=== PATIENT | female | born 1970 | race Caucasian/White ===

== ENCOUNTER → 2020-08-24 10:27 | Outpatient (BNVA) | payer OTHER, SELFPAY | PROVIDERS: PCP Internal Medicine; Visit Provider Physician Assistant | DX: Z76.89 Persons encountering health services in other specified circumstances (principal) ==

== ENCOUNTER → 2020-08-27 08:24 | Outpatient (BNVA) | payer OTHER, SELFPAY | PROVIDERS: PCP Internal Medicine; Referring Provider Internal Medicine; Visit Provider Surgery | DX: Z01.818 Encounter for other preprocedural examination (principal); A04.8 Other specified bacterial intestinal infections; E66.9 Obesity, unspecified; E03.9 Hypothyroidism, unspecified; I10 Essential (primary) hypertension; Z87.891 Personal history of nicotine dependence | CPT/HCPCS: 99202; 99211 ==

== ENCOUNTER 2020-08-27 16:53 | Outpatient (REF) | payer OTHER, SELFPAY ==
[2020-08-28 12:01] LABS: H Pylori Breath Test NOT DETECTED (NOT DETECTED)
== END 2020-08-27 16:54 | disposition home or self-care (01) ==
LOC: HO.LNP 16:53
PROVIDERS: Visit Provider Surgery
DX: E03.9 Hypothyroidism, unspecified (principal); I10 Essential (primary) hypertension; E66.9 Obesity, unspecified
CPT/HCPCS: 83013

== ENCOUNTER 2020-09-23 08:24 | Outpatient (REF) | payer OTHER, SELFPAY ==
--- NOTE | 2020-09-23 08:26 | FL_ITS ---
EXAMINATION: XR GI SERIES CLINICAL INFORMATION: Hypothyroidism. Pre-op. COMPARISON: None TECHNIQUE: Routine upper GI air-contrast study was performed in upright and lying position. FINDINGS: Following oral administration of thick barium and effervescent granules in upright view, there is normal propagation of bolus from the oral cavity through the pharynx, esophagus into stomach without any obstruction or narrowing. No laryngeal penetration or aspiration seen. There is no extrinsic compression. On placing patient supine and prone lying, the course, caliber and peristalsis of the stomach, bulb and the sweep is normal. The course, caliber and peristalsis of stomach and the duodenum is normal. There is [id number] sized diverticula of the third segment of the duodenum. The mucosal pattern of the stomach and the duodenum is normal. There is minimal gastroesophageal reflux without hiatal hernia. FLUOROSCOPY TIME: 1.7 minutes DOSE AREA PRODUCT: 145 uGy-m2 (microgray-meter squared) FL/FL upper GI series IMPRESSION: [id number] diverticulum of third segment of duodenum. Minimal gastroesophageal reflux without hiatal hernia.
--- NOTE | 2020-09-23 08:28 | US_ITS ---
EXAMINATION: US ABDOMEN COMPLETE CLINICAL INFORMATION: Hypothyroidism, unspecified. Obesity. COMPARISON: CT abdomen and pelvis 09/26/2016. KUB 04/11/2012. TECHNIQUE: Real-time imaging of the abdominal viscera. Technically limited study secondary to bowel gas and body habitus. FINDINGS: PANCREAS: No focal mass or peripancreatic inflammatory changes seen. There is mild prominence of the pancreatic duct at approximately 3 to 4 mm in maximum diameter. ABDOMINAL AORTA: The proximal, mid, and distal segments are normal in caliber. INFERIOR VENA CAVA: Visualized portions are normal. LIVER: There is increased echogenicity of the liver consistent with fatty infiltration. The liver contour is normal. No focal hepatic lesion. There is no intrahepatic biliary duct dilatation seen. GALLBLADDER: Normal. The gallbladder is physiologically distended without evidence of stones, sludge, polyps, wall thickening or pericholecystic fluid. COMMON BILE DUCT: Normal in caliber measuring 0.5 cm in diameter. RIGHT KIDNEY: Normal. No hydronephrosis. No renal calculi or focal parenchymal lesions. The kidney measures 10.2 cm in maximum dimension. LEFT KIDNEY: Normal. No hydronephrosis. No renal calculi or focal parenchymal lesions. The kidney measures 10.1 cm in maximum dimension. SPLEEN: Normal. The spleen measures 10.0 cm in maximum dimension. FREE FLUID: None. US/US abdomen complete IMPRESSION: Fatty infiltration of the liver.
--- NOTE | 2020-09-23 08:28 | XR_ITS ---
EXAMINATION: XR CHEST CLINICAL INFORMATION: Hypothyroidism. COMPARISON: 09/26/2016 TECHNIQUE: 2 views of the chest were obtained. FINDINGS: Lungs are well-inflated and clear. Trachea is midline in position. No interstitial disease, consolidation or mass. No pleural effusion or pneumothorax. Cardiac silhouette and pulmonary vessels are normal in size. The mediastinum and nuvia have normal contour. The visualized bones, and upper abdomen, are unremarkable. XR/XR chest 2V IMPRESSION: Normal chest. No acute cardiopulmonary abnormality.
== END 2020-09-23 08:25 | disposition home or self-care (01) ==
LOC: HO.US 08:24
PROVIDERS: Visit Provider Surgery
DX: Z01.818 Encounter for other preprocedural examination (principal); K21.9 Gastro-esophageal reflux disease without esophagitis; E66.01 Morbid (severe) obesity due to excess calories; E03.9 Hypothyroidism, unspecified; I10 Essential (primary) hypertension
CPT/HCPCS: 71046; 74240; 76700

== ENCOUNTER → 2020-09-28 08:04 | Outpatient (BNVA) | payer OTHER, SELFPAY | PROVIDERS: PCP Internal Medicine; Referring Provider Internal Medicine; Visit Provider Dietitian, Registered | DX: Z76.89 Persons encountering health services in other specified circumstances (principal) ==

== ENCOUNTER → 2020-10-06 13:44 | Outpatient (BNVA) | payer OTHER, SELFPAY | PROVIDERS: PCP Internal Medicine; Visit Provider Surgery | DX: Z76.89 Persons encountering health services in other specified circumstances (principal) ==

== ENCOUNTER 2020-10-18 14:39 | Outpatient (REF) | payer OTHER, SELFPAY ==
--- NOTE | 2020-10-18 14:44 | US_ITS ---
EXAMINATION: US THYROID CLINICAL INFORMATION: Thyroid nodule COMPARISON: Thyroid ultrasound 11/17/2019. TECHNIQUE: Linear transducer donald-scale and color Doppler examination with attention to the region of the thyroid. FINDINGS: SIZE: Measurements of the thyroid lobes and nodules are given in sagittal, anteroposterior and transverse dimensions respectively. Right Thyroid Lobe: 4.3 x 1.4 x 1.2 cm, volume 4.0 mL. Previously 4.6 x 1.6 x 1.5 cm, volume 5.5 mL. Parenchyma: The gland echotexture is heterogeneous. Thyroid vascularity is increased. Left Thyroid Lobe: 4.2 x 1.2 x 1.2 cm, volume 3.2 mL. Previously 3.8 x 1.5 x 1.4 cm, volume 4.1 mL. Parenchyma: The gland echotexture is heterogeneous. Thyroid vascularity is increased. Isthmus: 0.4 cm in maximum AP dimension. Previously 0.3 cm. RIGHT THYROID LOBE: There is 1 nodule seen. 1. Location: Lower pole Size: 0.5 x 0.4 x 0.5 cm. Previous: Not visualized Nodule characteristics: Heterogeneous, smoothly marginated and no intranodular flow. Question 0 nodule ISTHMUS: No nodules. LEFT THYROID LOBE: Previously seen nodule in the lower pole is not visualized on the present exam. NODES: No lymphadenopathy is seen in the tissue surrounding the thyroid gland. US/US thyroid IMPRESSION: 1. Small new nodule in the right upper pole likely pseudo-nodule. 2. Previously seen pseudo nodule lower pole left thyroid lobe is not seen. 3. Recommend continued follow-up.
== END 2020-10-18 14:40 | disposition home or self-care (01) ==
LOC: HO.HMGCX 14:39
PROVIDERS: PCP Internal Medicine; Visit Provider Nurse Practitioner Gerontology
DX: E04.1 Nontoxic single thyroid nodule (principal)
CPT/HCPCS: 76536

== ENCOUNTER → 2020-10-26 08:25 | Outpatient (BNVA) | payer OTHER, SELFPAY | PROVIDERS: PCP Internal Medicine; Visit Provider Dietitian, Registered | DX: Z76.89 Persons encountering health services in other specified circumstances (principal) ==

== ENCOUNTER 2020-10-27 07:47 | Outpatient (REF) | payer OTHER, SELFPAY ==
--- NOTE | 2020-10-27 07:52 | ECG_ITS ---
Test Reason : HYPOTHYROIDISM Blood Pressure : / mmHG Vent. Rate : 051 BPM Atrial Rate : 051 BPM P-R Int : 140 ms QRS Dur : 084 ms QT Int : 428 ms P-R-T Axes : 052 073 063 degrees QTc Int : 394 ms Sinus bradycardia Otherwise normal ECG When compared with ECG of 26-SEP-2016 13:07, No significant change was found Referred By: Andrews Van Electronically Signed By:Serafin Seymour
[2020-10-27 08:50] LABS: Basophils Percent Auto 0.2 % (0-2); Eosinophils Absolute Auto 0.1 X10*3/uL (0.0-0.4); Eosinophils Percent Auto 2.2 % (0-4); Hematocrit 39.7 % (37-47); Imm Gran Abs Auto 0.02 X10*3/uL (0.00-0.03); Imm Gran Pct Auto 0.3 % (0.0-0.4); Lymphocytes Absolute Auto 2.4 X10*3/uL (1.2-4.9); Lymphocytes Percent Auto 40.3 % (20-40); MANUAL DIFF FLAG NO; Mean Corpuscular HGB Conc 32.7 g/dl (31.0-35.0); Mean Corpuscular Hemoglobin 30.5 pg (27.0-33.0); Mean Corpuscular Volume 93.2 fL (80-98); Mean Platelet Volume 10.4 fL (9.4-12.3); Monocytes Absolute Auto 0.7 X10*3/uL (0.1-1.2); Neutrophils Absolute Auto 2.8 X10*3/uL (2.0-8.3); Platelet Count 272 X10*3/uL (160-400); Red Blood Count 4.26 X10*6/uL (4.20-5.50); Red Cell Distribution Width 12.7 % (11.0-16.0)
[2020-10-27 08:59] LABS: Estimated Average Glucose 111 mg/dL; Hemoglobin A1c % 5.5 %
[2020-10-27 09:20] LABS: Alanine Aminotransferase 73 U/L (0-31); Albumin Level 3.9 g/dL (3.5-5.0); Alkaline Phosphatase 100 U/L (39-117); Anion Gap 15 (12-20); Aspartate Amino Transferase 43 U/L (5-31); Bilirubin Total 0.6 mg/dL (0.0-1.0); Blood Urea Nitrogen 21 mg/dL (9-16); C Reactive Protein 0.39 mg/dL (< or = 0.50); Calcium 9.1 mg/dL (8.4-10.2); Carbon Dioxide 28 mmol/L (22-29); Chloride 104 mmol/L (96-108); Cholesterol 196 mg/dL; Estimated Glomerular Filt Rate > 60; Glucose Random 100 mg/dL (60-115); HDL Cholesterol 61 mg/dL; LDL Cholesterol Calculated 122 mg/dl; Potassium 4.8 mmol/l (3.3-5.1); Sodium 142 mmol/L (135-145); Total Protein 6.7 g/dL (6.5-8.0); Triglycerides 69 mg/dL
[2020-10-27 09:42] LABS: Ferritin 55 ng/mL (10-250); TSH reflex Free T4 4.43 mIU/mL (0.32-4.0)
[2020-10-27 10:24] LABS: Free T4 (Free Thyroxine) 0.95 ng/dL (0.71-1.85)
[2020-10-27 12:23] LABS: Folate 18.3 ng/mL (> or = 4.0); Vitamin B12 526 pg/mL (200-900)
[2020-10-28 12:07] LABS: Insulin Level Total 2.8 uIU/mL
[2020-10-30 07:12] LABS: Zinc 85 mcg/dL (60-130)
[2020-10-31 12:16] LABS: Vitamin B1 16 nmol/L (8-30)
[2020-11-02 17:48] LABS: Vitamin A 47 mcg/dL (38-98)
== END 2020-10-27 07:48 | disposition home or self-care (01) ==
LOC: HO.LAB 07:47
PROVIDERS: PCP Internal Medicine; Visit Provider Surgery
DX: Z01.818 Encounter for other preprocedural examination (principal); E03.9 Hypothyroidism, unspecified; I10 Essential (primary) hypertension; E66.9 Obesity, unspecified
CPT/HCPCS: 36415; 80053; 80061; 82607; 82728; 82746; 83036; 83525; 84425; 84439; 84443; 84590; 84630; 85025; 86140; 93005

== ENCOUNTER 2020-11-01 08:58 | Outpatient (REF) | payer OTHER, SELFPAY ==
--- NOTE | 2020-11-01 | US_ITS ---
EXAMINATION: US COMPLETE ABDOMEN WITH LIVER ELASTOGRAPHY CLINICAL INFORMATION: Obesity COMPARISON: Previous abdominal ultrasound 09/23/[address] of the abdomen and pelvis September 2016 TECHNIQUE: Real-time imaging of the abdominal viscera. Noninvasive ultrasound liver fibrosis assessment is performed using Marta ElastPQ point quantification shear wave elastography (pSWE) with a 5 MHz transducer. Multiple elastography samples are obtained. FINDINGS: PANCREAS: The visualized pancreatic head and body are normal in appearance. The remainder of the pancreas is obscured from visualization by the overlying bowel gas. ABDOMINAL AORTA: The proximal and mid aortic segments are normal in caliber. The distal abdominal aorta is not well visualized due to bowel gas. INFERIOR VENA CAVA: Visualized portions are normal. LIVER: Liver echotexture may be slightly increased. The liver is normal in size and contour. No focal lesion or intrahepatic biliary duct dilatation. The right lobe measures 14 cm in length. The left lobe measures 11 cm in length. The main portal vein is patent with appropriate hepatopedal flow Shear wave elastography provides a median stiffness of 1 m/s (reference: normal median stiffness is 0.81 - 1.22 m/s). The IQR/median stiffness to assess sampling precision is 0.3 (reference: optimal IQR/median stiffness is under 0.3). GALLBLADDER: There is dependent echogenic material seen in the gallbladder probably representing sludge. No gallstones are seen. The gallbladder is normal in size. The gallbladder wall is normal. COMMON BILE DUCT: Normal in caliber measuring 0.6 cm in diameter. RIGHT KIDNEY: Normal. No hydronephrosis. No renal calculi or focal parenchymal lesions. The kidney measures 10.9 cm in maximum dimension. LEFT KIDNEY: Normal. No hydronephrosis. No renal calculi or focal parenchymal lesions. The kidney measures 10.8 cm in maximum dimension. SPLEEN: Normal. The spleen measures 9.8 cm in maximum dimension. FREE FLUID: None. US/US abdomen comp w elastography IMPRESSION: 1. Impression: Slightly echogenic liver probably representing fatty infiltration. Limited visualization of the tail of the pancreas and distal abdominal aorta. Small amount of sludge in the gallbladder. 2. Elastography: Metavir score F0 suggestive of no increased risk of developing liver fibrosis.
== END 2020-11-01 08:59 | disposition home or self-care (01) ==
LOC: HO.US 08:58
PROVIDERS: Visit Provider Surgery
DX: Z01.818 Encounter for other preprocedural examination (principal); E66.01 Morbid (severe) obesity due to excess calories; K21.9 Gastro-esophageal reflux disease without esophagitis
CPT/HCPCS: 76705; 76981

== ENCOUNTER → 2020-11-03 08:34 | Outpatient (BNVA) | payer OTHER, SELFPAY | PROVIDERS: PCP Internal Medicine; Visit Provider Surgery | DX: Z76.89 Persons encountering health services in other specified circumstances (principal) ==

== ENCOUNTER → 2020-11-24 08:21 | Outpatient (BNVA) | payer OTHER, SELFPAY | PROVIDERS: PCP Internal Medicine; Visit Provider Surgery ==

== ENCOUNTER → 2020-11-25 08:13 | Outpatient (BNVA) | payer OTHER, SELFPAY | PROVIDERS: PCP Internal Medicine; Visit Provider Dietitian, Registered ==

== ENCOUNTER → 2020-12-20 08:12 | Outpatient (BNVA) | payer OTHER, SELFPAY | PROVIDERS: PCP Internal Medicine; Visit Provider Surgery ==

== ENCOUNTER → 2020-12-29 09:07 | Outpatient (BNVA) | payer OTHER, SELFPAY | PROVIDERS: PCP Internal Medicine; Visit Provider Nurse Practitioner Gerontology ==

== ENCOUNTER → 2021-01-07 08:40 | Outpatient (BNVA) | payer OTHER, SELFPAY | PROVIDERS: PCP Internal Medicine; Visit Provider Surgery ==

== ENCOUNTER 2021-01-20 13:49 | Outpatient (REF) | payer OTHER, SELFPAY ==
--- NOTE | ~2021-01-20 | MM_ITS ---
EXAMINATION: MM SCREENING DIGITAL BREAST TOMOSYNTHESIS, BILATERAL CLINICAL INFORMATION: Screening. Asymptomatic. The lifetime risk of breast cancer based on the Tyrer-Cuzick Model is 7%. COMPARISON: Outside mammography 07/31/2016, 08/20/2014 ([facility]). TECHNIQUE: Digital breast tomosynthesis is performed in both the craniocaudal and mediolateral oblique views along with computer-aided detection (CAD). Synthesized 2D images are generated from the tomosynthesis. FINDINGS: There are scattered areas of fibroglandular density (ACR BI-RADS breast composition Category b). There are no significant masses, abnormal calcifications, or other abnormalities. The axilla and skin contours are unremarkable. No significant changes. MM/MM tomosynthesis screening BI IMPRESSION: No mammographic evidence of malignancy. ASSESSMENT: BI-RADS 1: Negative RECOMMENDATION: Routine annual mammography screening. This patient's information was entered into a reminder system with a target due date for their next mammogram.
== END 2021-01-20 13:50 | disposition home or self-care (01) ==
LOC: HO.MAMMO 13:49
PROVIDERS: Visit Provider Surgery
DX: Z12.31 Encounter for screening mammogram for malignant neoplasm of breast (principal)
CPT/HCPCS: 77063; 77067

== ENCOUNTER → 2021-01-26 09:19 | Outpatient (BNVA) | payer OTHER, SELFPAY | PROVIDERS: PCP Internal Medicine; Visit Provider Internal Medicine ==

== ENCOUNTER → 2021-02-02 08:35 | Outpatient (BNVA) | payer OTHER, SELFPAY | PROVIDERS: PCP Internal Medicine; Visit Provider Surgery ==

== ENCOUNTER → 2021-03-24 12:42 | Outpatient (BNVA) | payer OTHER, SELFPAY | PROVIDERS: PCP Internal Medicine; Visit Provider Surgery ==

== ENCOUNTER → 2021-03-28 08:56 | Outpatient (BNVA) | payer OTHER, SELFPAY | PROVIDERS: PCP Internal Medicine; Visit Provider Surgery ==

== ENCOUNTER 2021-03-31 06:24 | Inpatient (IN) | payer OTHER, SELFPAY ==
[2021-03-24 12:30] VITALS: BMI 32.4
[2021-03-25 09:11] LABS: MANUAL DIFF FLAG NO
[2021-03-25 09:17] LABS: Basophils Percent Auto 0.2 % (0-2); Eosinophils Absolute Auto 0.1 X10*3/uL (0.0-0.4); Eosinophils Percent Auto 2.2 % (0-4); Hematocrit 41.2 % (37-47); Hemoglobin 13.7 g/dl (12.0-16.0); Imm Gran Abs Auto 0.02 X10*3/uL (0.00-0.03); Imm Gran Pct Auto 0.3 % (0.0-0.4); Lymphocytes Absolute Auto 2.5 X10*3/uL (1.2-4.9); Lymphocytes Percent Auto 43.1 % (20-40); Mean Corpuscular HGB Conc 33.3 g/dl (31.0-35.0); Mean Corpuscular Hemoglobin 30.6 pg (27.0-33.0); Mean Platelet Volume 10.7 fL (9.4-12.3); Monocytes Absolute Auto 0.7 X10*3/uL (0.1-1.2); Monocytes Percent Auto 11.9 % (2-11); Neutrophils Absolute Auto 2.5 X10*3/uL (2.0-8.3); Neutrophils Percent Auto 42.3 % (45-73); Platelet Count 272 X10*3/uL (160-400); Red Blood Count 4.48 X10*6/uL (4.20-5.50); Red Cell Distribution Width 12.7 % (11.0-16.0); White Blood Count 5.8 X10*3/uL (4.8-10.8)
[2021-03-25 09:22] LABS: Partial Thromboplastin Time 36.4 SEC (24.1-38.0); Prothrombin Time 11.9 SEC (10.8-13.0)
[2021-03-25 09:40] LABS: Estimated Average Glucose 111 mg/dL; Hemoglobin A1c % 5.5 %
[2021-03-25 10:05] LABS: Alanine Aminotransferase 72 U/L (0-31); Albumin Level 4.1 g/dL (3.5-5.0); Alkaline Phosphatase 115 U/L (39-117); Anion Gap 15 (12-20); Aspartate Amino Transferase 47 U/L (5-31); Bilirubin Total 0.7 mg/dL (0.0-1.0); Blood Urea Nitrogen 16 mg/dL (9-16); C Reactive Protein 0.34 mg/dL (< or = 0.50); Calcium 9.4 mg/dL (8.4-10.2); Carbon Dioxide 28 mmol/L (22-29); Chloride 104 mmol/L (96-108); Cholesterol 234 mg/dL; Creatinine Clr Calc Pharmacy 77.1; Estimated Glomerular Filt Rate > 60; Glucose Random 89 mg/dL (60-115); HDL Cholesterol 70 mg/dL; LDL Cholesterol Calculated 150 mg/dl; Potassium 4.8 mmol/L (3.3-5.1); Sodium 142 mmol/L (135-145); Total Protein 7.1 g/dL (6.5-8.0); Triglycerides 70 mg/dL
[2021-03-25 10:14] LABS: TSH reflex Free T4 7.24 uIU/mL (0.32-4.0)
[2021-03-26 07:02] LABS: Insulin Level Total 2.8 uIU/mL
--- NOTE | 2021-03-30 10:21 | P.CONAN_ITS ---
Documented by User: Jessa Singh 03/30/21 10:24 HPI - Anesthesia Eval Consult details Narrative: 50yo F for Gastrectomy Sleeve, EGD, Poss Diaphragmatic Hernia, Poss Ventral Hernia, Poss Open suboxone daily (hx of IVDA) PMFSH Active Problems Active Problems: All Active Problems (Updated 03/24/21 @ 16:07 by Andrews Van MD) BMI 32.0-32.9,adult (Acute) BMI over 35 (Acute) Hypertension (Acute) BMI 36.0-36.9,adult (Acute) BMI 34.0-34.9,adult (Acute) Vitamin D deficiency (Acute) Autoimmune hypothyroidism (Acute) Obesity (Acute) Depression (Acute) Hypothyroidism (Acute) Past Medical History Medical History Autoimmune hypothyroidism COVID-19 vaccine administered Depression History of opioid abuse Hypothyroidism Palpitations Vitamin D deficiency Family History Family History Mother Brain tumor Father Vascular disease COPD (chronic obstructive pulmonary disease) Diabetes mellitus Son No problems noted. Daughter No problems noted. Daughter No problems noted. Surgical History Surgical History Hx of section Hx of hysterectomy Hx of mammogram Obesity Social History Social History Household Members: Children Are you a primary residential care facility manager to a significant other at home: Yes (children are 17 & 18 years old but are self-sufficient) Do you presently have visiting nurse or other home services: No Alcohol intake: former Year quit: 2009 Patient Tobacco Use Status: Former Tobacco user Quit Date: 2018 Tobacco use type: Cigarette Years Smoked: 30 Substance Use Type: Former Substance User and Heroin Substance Use Type Other:: taking suboxone-clean for 11 years Have you been hit, kicked, punched, or otherwise hurt by someone within the past year? If so, by whom?: No Are you DNR?: No Advance Directives: No Advance Directives Information Provided: No Advance Directives on File: No Recently lost weight without trying: No Eating poorly because of decreased appetite: No Nutrition Risks: No Nutritional Risk Patient : No : No Poor oral hygiene: No Meds Allergies Allergy/AdvReac Type Severity Reaction Status Date / Time No Known Allergies Allergy Verified 03/24/21 16:02 Home Medications Medication Instructions Recorded Confirmed Last Taken Type buprenorphine 12 mg-naloxone 3 mg 15 mg SUBLINGUAL DAILY 08/27/20 03/31/21 03/29/21 History sublingual film bupropion HCl 100 mg tablet 100 mg PO BID 08/27/20 03/31/21 03/31/21 04:30 History estradiol 0.025 mg/24 hr 1 patch TOPICAL 2XW 08/27/20 03/24/21 Unknown History semiweekly transdermal patch fluoxetine 20 mg capsule 20 mg PO DAILY 08/27/20 03/24/21 Unknown History metoprolol succinate 50 mg 50 mg PO DAILY 08/27/20 03/24/21 Unknown History tablet,extended release 24 hr omega-3 fatty acids 1,000 mg 1,000 mg PO DAILY 08/27/20 03/24/21 Unknown History capsule meloxicam 7.5 mg tablet 7.5 mg PO DAILY tab 12/29/20 03/24/21 Unknown History levothyroxine 88 mcg tablet 88 mcg PO DAILY 01/26/21 03/24/21 Unknown History [place]'s wort 1 tab PO DAILY 03/24/21 03/24/21 Unknown History cholecalciferol (vitamin D3) 25 mcg PO DAILY 03/24/21 03/24/21 Unknown History [Vitamin D3] Exam Exam Date and Time: March 30, 2021 1021 Height,Weight and Vital Signs: Height 5 ft 3 in Weight 83.007 kg Pertinent Lab Results Pertinent Lab Results: Laboratory Tests 03/25/21 03/25/21 03/25/21 07:57 08:05 08:05 WBC 5.8 RBC 4.48 Hgb 13.7 Hct 41.2 MCV 92.0 MCH 30.6 MCHC 33.3 RDW 12.7 Plt Count 272 MPV 10.7 Immature Gran % (Auto) 0.3 Neut % (Auto) 42.3 L Lymph % (Auto) 43.1 H Mower % (Auto) 11.9 H Eos % (Auto) 2.2 Baso % (Auto) 0.2 Lymph # (Auto) 2.5 Mower # (Auto) 0.7 Eos # (Auto) 0.1 Baso # (Auto) 0.0 Abs Immat Gran (auto) 0.02 Absolute Neuts (auto) 2.5 Absolute Nucleated RBC 0.000 Nucleated RBC % (auto) 0.0 PT 11.9 INR 1.0 APTT 36.4 Sodium Potassium Chloride Carbon Dioxide Anion Gap BUN Creatinine Estim Creat Clear Calc Estimated GFR Random Glucose Estimat Average Glucose Hemoglobin A1c % Total Insulin Calcium Total Bilirubin AST ALT Alkaline Phosphatase C-Reactive Protein Total Protein Albumin Triglycerides Cholesterol LDL Cholesterol, Calc HDL Cholesterol TSH Free T4 Blood Type A Positive Antibody Screen NEGATIVE 03/25/21 03/25/21 03/25/21 08:05 08:05 08:05 WBC RBC Hgb Hct MCV MCH MCHC RDW Plt Count MPV Immature Gran % (Auto) Neut % (Auto) Lymph % (Auto) Mower % (Auto) Eos % (Auto) Baso % (Auto) Lymph # (Auto) Mower # (Auto) Eos # (Auto) Baso # (Auto) Abs Immat Gran (auto) Absolute Neuts (auto) Absolute Nucleated RBC Nucleated RBC % (auto) PT INR APTT Sodium 142 Potassium 4.8 Chloride 104 Carbon Dioxide 28 Anion Gap 15 BUN 16 Creatinine 0.89 Estim Creat Clear Calc 77.1 Estimated GFR > 60 Random Glucose 89 Estimat Average Glucose 111 Hemoglobin A1c % 5.5 Total Insulin 2.8 Calcium 9.4 Total Bilirubin 0.7 AST 47 H ALT 72 H Alkaline Phosphatase 115 C-Reactive Protein 0.34 Total Protein 7.1 Albumin 4.1 Triglycerides 70 Cholesterol 234 LDL Cholesterol, Calc 150 HDL Cholesterol 70 TSH 7.24 H Free T4 0.90 Blood Type Antibody Screen Narrative Narrative: EKG 10/2020 Vent. Rate : 051 BPM Atrial Rate : 051 BPM P-R Int : 140 ms QRS Dur : 084 ms QT Int : 428 ms P-R-T Axes : 052 073 063 degrees QTc Int : 394 ms Sinus bradycardia Otherwise normal ECG When compared with ECG of 26-SEP-2016 13:07, No significant change was found Assessment and Plan Assessment Anesthesia Assessment: Chart Reviewed Documented by User: Pam Ji 03/31/21 08:26 [facility] Past Medical History Medical History Autoimmune hypothyroidism COVID-19 vaccine administered Depression History of opioid abuse Hypothyroidism Palpitations Vitamin D deficiency Family History Family History Mother Brain tumor Father Vascular disease COPD (chronic obstructive pulmonary disease) Diabetes mellitus Son No problems noted. Daughter No problems noted. Daughter No problems noted. Family history of problems with anesthesia: No Surgical History Surgical History Hx of section Hx of hysterectomy Hx of mammogram Obesity History of Problems with Anesthesia: No Social History Social History Household Members: Children Are you a primary residential care facility manager to a significant other at home: Yes (children are 17 & 18 years old but are self-sufficient) Do you presently have visiting nurse or other home services: No Alcohol intake: former Year quit: 2009 Patient Tobacco Use Status: Former Tobacco user Quit Date: 2018 Tobacco use type: Cigarette Years Smoked: 30 Substance Use Type: Former Substance User and Heroin Substance Use Type Other:: taking suboxone-clean for 11 years Have you been hit, kicked, punched, or otherwise hurt by someone within the past year? If so, by whom?: No Are you DNR?: No Advance Directives: No Advance Directives Information Provided: No Advance Directives on File: No Recently lost weight without trying: No Eating poorly because of decreased appetite: No Nutrition Risks: No Nutritional Risk Patient : No : No Poor oral hygiene: No Meds Allergies Allergy/AdvReac Type Severity Reaction Status Date / Time No Known Allergies Allergy Verified 03/24/21 16:02 Home Medications Medication Instructions Recorded Confirmed Last Taken Type buprenorphine 12 mg-naloxone 3 mg 15 mg SUBLINGUAL DAILY 08/27/20 03/31/21 03/29/21 History sublingual film bupropion HCl 100 mg tablet 100 mg PO BID 08/27/20 03/31/21 03/31/21 04:30 History estradiol 0.025 mg/24 hr 1 patch TOPICAL 2XW 08/27/20 03/24/21 Unknown History semiweekly transdermal patch fluoxetine 20 mg capsule 20 mg PO DAILY 08/27/20 03/24/21 Unknown History metoprolol succinate 50 mg 50 mg PO DAILY 08/27/20 03/24/21 Unknown History tablet,extended release 24 hr omega-3 fatty acids 1,000 mg 1,000 mg PO DAILY 08/27/20 03/24/21 Unknown History capsule meloxicam 7.5 mg tablet 7.5 mg PO DAILY tab 12/29/20 03/24/21 Unknown History levothyroxine 88 mcg tablet 88 mcg PO DAILY 01/26/21 03/24/21 Unknown History [place] wort 1 tab PO DAILY 03/24/21 03/24/21 Unknown History cholecalciferol (vitamin D3) 25 mcg PO DAILY 03/24/21 03/24/21 Unknown History [Vitamin D3] Exam Height,Weight and Vital Signs: Vital Signs Temp Pulse Resp BP Pulse Ox 03/31/21 06:59 96.0 F L 57 16 114/71 98 Pertinent Lab Results Pertinent Lab Results: Laboratory Results - last 24 hr 03/31/21 06:17 COVID-19 ([facility]) Negative COVID-19 Clin Com See Note Airway Mallampati Class: II TM Dist: >3cm Neck ROM: Full Loose/Missing/Broken Teeth: No Heart: RRR Lungs: CTAB Assessment and Plan Assessment Anesthesia Assessment: Anesthesia Plan Discussed and Chart Reviewed Final Anesthetic Review NPO: Yes ASA Class: III Final Preanesthetic Review: No Changes in Pt Med Stat, Meds/Allgs Chart Reviewed, Consent Obtained/Reviewed and Anes Risks/Benef Reviewed Patient Risk: Intermediate Procedure Risk: Intermediate Assessment/Block/Sedation in SS: Assess/Block/Sedation- Anesthetic Plan Anesthetic Plan: GA Disposition: Standard PACU and Inp. Admit - Standard Bed
--- NOTE | 2021-03-30 16:35 | MHC.SHP ---
Pre-Procedural Eval Section A The patient is an INPATIENT: Yes The History & Physical has been completed within 30 days and I have reviewed it.: No Section B Chief Complaint: Obesity, Details of Present Illness: Obesity Relevant Family History (Specify if Yes): No Relevant Social History: None Present Medications: see Short Stay Collaborative assessment Medical History: No relevant PMH History of Previous Operations: No relevant previous surgery Allergies: Allergies Allergy/AdvReac Type Severity Reaction Status Date / Time No Known Allergies Allergy Verified 03/24/21 16:02 Review of Systems Sugical H&P ROS: Negative: Constitution, Cardiovascular, Respiratory, Neurological, Psychiatric, Hem-Onc, Allergic/Immunologic, Gastrointestinal, Genitourinary, Musculoskeletal, Integumentary, Endocrine and Eyes/Ears/Nose/Throat Exam Surgical H&P Exam: Normal: HEENT, Normal: Heart, Normal: Lungs, Normal: Extremities, Normal: Abdomen, Normal: Skin and Normal: Neurological Plan Diagnosis/Plan: Unchanged I have reviewed the history and physical and performed a pertinent physical examination on my patient. No changes have occurred unless specified.
[2021-03-31] VITALS (18 sets, daily range): BP systolic 114–168; BP diastolic 64–98; PULSE 57–81; RESP 14–22; TEMP 35.6–36.7; O2SAT 93–100
[2021-03-31] MEDS: Lactated Ringers 1,000 ML 999 ML IV (06:52)
[2021-03-31 06:57] LABS: COVID-19 Test Negative (Negative); IDNOW Serial# 9DD0AD1C
[2021-03-31] MEDS: Lactated Ringers 1,000 ML 100 ML IVCONT (06:58)
--- NOTE | 2021-03-31 10:15 | PM.OP ---
Brief Operative Note Date of Service: 03/31/21 Pre-op diagnosis: Severe obesity and comorbidities Post-op diagnosis: same (& diaphragmatic hernia) Procedure: INITIAL PATIENT BMI ON PRESENTATION AT OUR OFFICE: 35.8 kg/m2 LAST BMI BEFORE SURGERY: 32.6 kg/m2 COMORBIDITIES: Hypertension, GERD, depression, liver steatosis The patient participated in an intensive weekly lifestyle intervention and exercise program during which the patient has lost between the initial office visit and the last preoperative visit 20lbs, or 10.1% of initial actual body weight. The patient met the BMI-criteria for bariatric surgery based on the BMI on initial presentation. The patient should not be penalized for achieving such weight loss because it is not sustainable long-term without surgical intervention and it was achieved in preparation for bariatric surgery under my direction and based on my published research ([email or web address] and [email or web address]) that a 10% preoperative weight loss improves long-term weight loss after surgery and reduces perioperative complications. Insurance carriers such as [facility] have endorsed my recommendations and have included in their policies criteria to include a 10% preoperative weight loss requirement. PROCEDURE: Esophago-gastroscopy, laparoscopic repair of incarcerated diaphragmatic hernia, laparoscopic lysis of adhesions, laparoscopic sleeve gastrectomy and laparoscopic gastropexy INDICATIONS: This is a 50 year-old female who was electively scheduled for laparoscopic, possibly open sleeve gastrectomy. The risks and complications of the procedure were discussed with the patient in advance, particularly the possibility of ; pulmonary embolism; staple line leak; bleeding; GERD; cardiac, pulmonary, or renal complications; as well as long-term problems such as insufficient weight loss, vitamin deficiency, strictures, or ulcers. The patient understood all the risks, and was in agreement to proceed with surgery. DESCRIPTION OF PROCEDURE: After informed consent was obtained from the patient, the patient was given preoperative antibiotics, and was transferred to the operating room. After successful induction of general anesthesia, pneumatic compressive devices were placed on both lower extremities. An upper endoscopy was performed next. The oropharynx and esophagus appeared to be within normal limits. There was a diaphragmatic hernia present of moderate size consistent with the findings of the preoperative upper GI. The stomach was entered. Then after all fluid and air were suctioned and the stomach was fully decompressed, the scope was withdrawn and secured in the mid esophagus. The patient was then prepped and draped in the usual sterile manner, and abdominal access was established at the right upper quadrant with the Bryon technique. A 12 mm blunt port was inserted, and the abdomen was insufflated with CO2 to a pressure of 15 mmHg. Under direct visualization, additional ports were placed, specifically two 5 mm Versi-step ports to the left upper quadrant, and a 5 mm Versi-Step port to the right upper quadrant. 1% lidocained plan was used to infiltrate all port sites as well as all fascia defects. Using the EndoClose suture passer device, we placed a #1 Polysorb tie across the falciform ligament in order to retract it up against the abdominal wall and prevent injury of the ligament with our instruments during the procedure. Following that, the patient was placed in a steep reverse Trendelenburg position. An additional 5 mm port was placed to the right flank for the Mediflex retractor that was used to retract the left lobe of the liver. The gastro-esophageal fat pad was opened with the ultrasonic device (Thunderbeat, Olympus) and the anterior esophagus and hiatus were exposed. The angle of His was opened with the ultrasonic device the fundus of the stomach from any diaphragmatic and splenic attachments. I then opened the gastrocolic ligament between the transverse colon and the greater curvature of the stomach with the ultrasonic device to enter the lesser sac and facilitate the ligation of the short gastric vessels. I started at a mid-point along the greater curvature and using the Thunderbeat, all short gastric vessels were divided all the way to the angle of His until the left irma was completely dissected at its entirety. I then divided the gastro-colic ligament distally to a distance of about 3-4 cm proximal to the esophagus. There was an obvious significant-sized hiatal hernia. I continued dissecting along the hiatus toward the left irma and the angle of His. I fully mobilized the fat pad that was incarcerated in the hernia. I then continued by dissecting even further into the posterior retro-esophageal space all the way to the angle of His. I continued to mobilize the esophagus into the mediastinum circumferentially. Both vagal nerves were seen and preserved. At that point, I was able to have at least 3 to 5 cm of esophagus into the abdomen. After I completely mobilized the esophagus from both the left and right irma and I had a good mobilization of the esophagus circumferentially, I closed the hernia defect with three interrupted #0 Surgidac sutures using the Endo Stitch device, two of which were placed posterior and one anterior to the esophagus. The stomach was then divided transversely with two Endo AMADOR-45 and four AMADOR-60 articulating purple loads using the Stellarcasa SA stapler and loads. Every effort was made that the gastric sleeve had a tubular shape and an even caliber throughout. Once the sleeve resection was completed, the staple line of the gastric sleeve was reinforced with Hemoclips. The resected stomach was retrieved without difficulty from the Bryon port. A gastropexy was then performed in order to prevent postoperative GERD and partial gastric volvulus. Several interrupted 2.0 Surgidac sutures were placed between the sleeve's staple line and the previously divided greater omentum and gastro-colic ligament using the Endo-Stitch device. An upper endoscopy was performed. There was no narrowing at the GE junction. The scope was easily advanced all the way to the pylorus which was clearly visualized. There was no narrowing anywhere and the sleeve's caliber was even throughout. The sleeve's staple line was inspected and there was no evidence of ischemia, bleeding or dehiscence. At that point the gastroscope was withdrawn from the patient?s mouth while we were decompressing the bowel and the stomach from any remaining air. I looked into the lesser sac to see how the sleeve was situating and it was situating well. There was no bleeding from the staple line, spleen, or short gastric vessels. The Mediflex retractor was removed, and the undersurface of the liver was inspected and there was no bleeding. The patient was placed in supine position. I closed the fascial defect of the 12 mm port site with a figure of eight #1 Polysorb suture. Then 100 cc 0.25 % Marcaine plain with 10 mg of Dexamethasone were used to infiltrate the fascial closure as well as all skin incisions. At this point, the abdomen was deflated, all ports were removed under direct vision, and no bleeding was noted from any of the port sites. The skin incisions were irrigated with saline and were closed with 4-0 absorbable monofilament sutures. Steri-Strips and OpSites were used to cover all incisions. The patient was extubated and was transferred in stable condition to the recovery room for further care. I was present and performed all chu parts of the procedure. Yoselin Lancaster was the first officer. There were no residents to assist with this case. Ty Van MD, PhD, FACS Surgeon: Andrews Van MD Anesthesia: GETA, local and other (TAP block) Was an Industrial Relations Specialist used for this Procedure?: Yes Industrial Relations Specialist: Kathryn Lancaster Estimated blood loss (mL): 10 IV fluids (mL): 2,500 Urine output (mL): 0 (No Harrison to record) Pathology: other (Stomach) Condition: stable Disposition: PACU
--- NOTE | 2021-03-31 10:20 | PM.PNGS ---
Subjective Subjective Date of Service: 03/31/21 Interval history: Patient has mild incisional pain but was able to ambulate and use the incentive spirometer. Physical Exam Vital Signs: Vital Signs: Last Vital Signs Temp 96.0 F L 03/31/21 06:59 Pulse 57 03/31/21 06:59 Resp 16 03/31/21 06:59 BP 114/71 03/31/21 06:59 Pulse Ox 98 03/31/21 06:59 Body Mass Index 32.4 GI: Inspection: Yes normal to inspection and Yes incision (dry, clean and intact) Extrem: Right lower extremity: normal to inspection (no calf tenderness) Left lower extremity: normal to inspection (no calf tenderness) Progress Note: A&P Assessment and plan (1) Obesity: Status: Acute (2) BMI 32.0-32.9,adult: Status: Acute (3) Hypertension: Status: Acute (4) Autoimmune hypothyroidism: Status: Acute (5) Depression: Status: Acute (6) S/P laparoscopic sleeve gastrectomy: Status: Acute Assessment and Plan: s/p lap sleeve gastrectomy, gastropexy and diaphragmatic hernia repair Doing well Check am labs (7) Status post repair of paraesophageal diaphragmatic hernia: Status: Acute (8) Diaphragmatic hernia: Status: Acute (9) Steatosis, liver: Status: Acute Fall Risk Details Current Medications: Current Medications Generic Name Dose Route Start Last Admin Trade Name Freq PRN Reason Stop Dose Admin Fentanyl 25 mcg 03/31/21 08:26 Fentanyl Citrate/Pf 100 Mcg/2 Ml Vial IVPUSH Q5M PRN Pain, Moderate (Pain Scale 4-6 Hydromorphone HCl 0.25 mg 03/31/21 08:26 Hydromorphone Hcl 0.5 Mg/0.5 Ml Syringe IVPUSH Q5M PRN Pain, Severe (Pain Scale 7-10) Lactated Ringer's 1,000 mls @ 100 mls/hr 03/31/21 06:15 03/31/21 06:58 Lr IVCONT 100 mls/hr .Q10H HEBERT Administration Promethazine HCl 6.25 mg/ 50.25 mls @ 201 mls/hr 03/31/21 08:26 Sodium Chloride IV ONCE PRN Nausea and Vomiting Ondansetron HCl 4 mg 03/31/21 08:26 Ondansetron Hcl 4 Mg/2 Ml Vial IVPUSH ONCE PRN Nausea and Vomiting Time Spent With Patient Time: Total time spent is greater than 50% in coordination of care (as documented) at patient's floor/unit and/or counseling patient:
[2021-03-31] MEDS: ondansetron HCL 4 MG/2 ML VIAL IVPUSH (10:22)
--- NOTE | 2021-03-31 10:27 | PM.DS ---
DS: Providers Provider Date of Service: 04/01/21 Date of admission: 03/31/21 06:24 Primary care physician: Conner Art MD DS: Diagnosis Discharge Diagnosis (1) Obesity: (2) BMI 32.0-32.9,adult: (3) Hypertension: Status: Acute (4) Autoimmune hypothyroidism: Status: Acute (5) Depression: Status: Acute Problem details: states has been on Rx for many years (6) S/P laparoscopic sleeve gastrectomy: Status: Acute (7) Status post repair of paraesophageal diaphragmatic hernia: Status: Acute (8) Diaphragmatic hernia: Status: Acute (9) Steatosis, liver: Status: Acute DS: Medications Discharge Medications Home Medications: Home Medications Medication Instructions Recorded Confirmed buprenorphine 12 mg-naloxone 3 mg 15 mg SUBLINGUAL DAILY 08/27/20 03/31/21 sublingual film bupropion HCl 100 mg tablet 100 mg PO BID 08/27/20 03/31/21 estradiol 0.025 mg/24 hr 1 patch TOPICAL 2XW 08/27/20 03/24/21 semiweekly transdermal patch fluoxetine 20 mg capsule 20 mg PO DAILY 08/27/20 03/24/21 metoprolol succinate 50 mg 50 mg PO DAILY 08/27/20 03/24/21 tablet,extended release 24 hr omega-3 fatty acids 1,000 mg 1,000 mg PO DAILY 08/27/20 03/24/21 capsule meloxicam 7.5 mg tablet 7.5 mg PO DAILY tab 12/29/20 03/24/21 levothyroxine 88 mcg tablet 88 mcg PO DAILY 01/26/21 03/24/21 [place]'s wort 1 tab PO DAILY 03/24/21 03/24/21 cholecalciferol (vitamin D3) 25 mcg PO DAILY 03/24/21 03/24/21 [Vitamin D3] Previous Rx's Medication Instructions Recorded ondansetron HCl 4 mg tablet 4 mg PO Q12H #20 tab 03/24/21 pantoprazole 40 mg tablet,delayed 40 mg PO DAILY #30 tab 03/24/21 release polyethylene glycol 3350 17 gram 17 g PO DAILY #14 ea 03/24/21 oral powder packet sucralfate 100 mg/mL oral 10 ml PO BID #400 ml 03/24/21 suspension DS: Summary Time Spent with Patient Time attestation: ADMITTING DIAGNOSIS: morbid obesity, automimmune hypothyroidism, diaphragmatic hernia, hypertension DISCHARGE DIAGNOSIS: same, s/p laparoscopic sleeve gastrectomy and repair diaphragmatic hernia PAST SURGICAL HISTORY: section, hysterectomy PROCEDURE: upper endoscopy, laparoscopic sleeve gastrectomy and repair of diaphragmatic hernia hernia DISCHARGE SUMMARY: History of Present Illness: The patient is a 50 year-old woman with a BMI of 36 kg/m2 and associated co-morbidities as described above. The patient had extensive work-up,lost 19.8 lbs preoperatively and was electively scheduled for laparoscopic, possible open sleeve gastrectomy and gastropexy. Risks and complications of the surgery were discussed with the patient in advance, particularly the possibility of , pulmonary embolism, anastomotic leak, bleeding, bowel injury, GERD, cardiac, renal or pulmonary complications. The patient understood all the risks and was in agreement with the surgical plan. Hospital Course: The patient underwent an uneventful laparoscopic sleeve gastrectomy with gastropexy and repair of diaphragmatic hernia on the day of admission. Postoperatively, the patient was transferred to the surgical floor. The patient was on IV Acetaminophen and IV dilaudid for pain control. Patient was started on bariatric phase 1 diet POD #0. On postoperative day one, the patient was feeling well without nausea, vomiting, fevers, or tachycardia. The patient had some mild incisional pain. The abdomen was soft. On the morning of postoperative day one, the patient was continued on 1 ounce of water or ice every half hour. During the first day, the patient did fairly well, having some incisional pain, but able to ambulate adequately and to tolerate liquids well. Since the patient is doing well, we decided that the patient was ready to be discharged. The patient was given instructions to follow-up with me next week and to call my office for any fever over 101, persistent abdominal pain, nausea, vomiting, GERD, symptoms of DVT such as calf tenderness, or leg swelling, or pulmonary embolism such as chest pain or shortness of breath. The patient was also instructed to drink 40-60 ounces of liquids per day using the 1-ounce cups. The patient was given prescription for Tylenol for pain, Zofran prn for nausea, and pantoprazole and carafate. The patient was encouraged to ambulate and use the incentive spirometer. The patient was allowed to shower, but no baths, and encouraged to stay active at home. All of these instructions were given to the patient personally. All questions were answered and the patient understood all instructions, the instructions were also given to the patient in print. Total time spent providing and/or coordinating discharge services: 15 Discharge coordination time: Less than 30 minutes Quality: Stroke Does the patient have a stroke diagnosis?: No Physical Exam Vital Signs: Vital Signs: Last Vital Signs Temp 96.0 F L 03/31/21 06:59 Pulse 57 03/31/21 06:59 Resp 16 03/31/21 06:59 BP 114/71 03/31/21 06:59 Pulse Ox 98 03/31/21 06:59 Body Mass Index 32.4 DS: Data Data Completed and Pending Pending studies at discharge: Pending at discharge 03/31/21 09:28 Surgical [PTH] Routine Labs on day of discharge: Laboratory Results - last 24 hr 03/31/21 06:17 COVID-19 (SHARI) Negative COVID-19 Clin Com See Note Discharge Plan Discharge Anticipated Discharge Date/Time: 04/01/21 10:23 Patient Disposition: Home, Self-Care Discharge Diagnosis: s/p sleeve gastrectomy Referrals: Conner Art MD [Primary Care Provider] - 1 Week Discharge Medications: Continued sucralfate [Carafate] 1 gram tablet 1 g PO BID Qty: 60 RF: 2 bupropion HCl 100 mg tablet 100 mg PO BID RF: 0 fluoxetine 20 mg capsule 20 mg PO DAILY RF: 0 buprenorphine-naloxone 12-3 mg film 15 mg sublingual DAILY RF: 0 pantoprazole 40 mg tablet,delayed release (DR/EC) 40 mg PO DAILY Qty: 30 RF: 2 ondansetron HCl [Zofran] 4 mg tablet 4 mg PO Q12H Qty: 20 RF: 0 levothyroxine 88 mcg tablet 88 mcg PO DAILY RF: 0 Held estradiol 0.025 mg/24 hr patch semiweekly 1 patch topical 2XW RF: 0 Hold Instructions: Discuss when to restart with Dr Van omega-3 fatty acids [Fish Oil Concentrate] 1,000 mg capsule 1,000 mg PO DAILY RF: 0 Hold Instructions: Resume on 04/21/21. Discontinued cholecalciferol (vitamin D3) [Vitamin D3] 25 mcg (1,000 unit) Capsule 25 mcg PO DAILY RF: 0 [place]'s wort 1 tab PO DAILY RF: 0 metoprolol succinate 50 mg tablet extended release 24 hr 50 mg PO DAILY RF: 0 meloxicam 7.5 mg tablet 7.5 mg PO DAILY RF: 0 sucralfate 100 mg/mL suspension 10 ml PO BID Qty: 400 RF: 2 polyethylene glycol 3350 [Miralax] 17 gram powder in packet 17 g PO DAILY Qty: 14 RF: 0 Discharge Orders: Discharge Order (Routine); Ordered 04/01/21 Ordered By: Andrews Van Diet: other Activity on Discharge: No heavy lifting Stand Alone Forms: Patient Portal Discharge page Activity Restrictions/Additional Instructions: No tub baths, sex or returning to work until discussed at first post op appointment. No exercise, alcohol, tobacco or illegal drug use. Continue to use incentive spirometer hourly while awake. Walk in home for 5- 10 minutes every 2 hours during the first week. Continue phase 1 diet today and start phase 2 diet tomorrow morning. Follow all instructions in the bariatric handbook and call with any questions. The patient's medical history has been reviewed and they are considered low risk for post op DVT and therefore DVT prophylaxis is not considered necessary. Travel after surgery was reviewed. The patient has not disclosed any travel plans during the first 30 days after surgery and they have been advised that within the first 30 days after surgery any bus, plane, train or car travel over 2 hours in duration is contraindicated due to the possibility of developing blood clots from immobility. Any travel, needs to include periods of ambulation of 10 minutes in duration every 2 hours. The patient was instructed to discuss any plans for travel during this period with their bariatric surgeon. Care Plan Goals: weight loss Health Concerns: obesity Plan of Treatment: see discharge instructions Assessment: stable POD #1 s/p sleeve gastrectomy Discharge Date/Time: 04/01/21 12:25
[2021-03-31] MEDS: Famotidine/PF 20 MG/2 ML VIAL IVPUSH ×2 (10:45→20:49)
[2021-03-31] MEDS: diphenhydrAMINE HCL 50 MG/ML VIAL 12.5 MG IVPUSH (10:48)
[2021-03-31 11:16] LABS: Hematocrit 40.2 % (37-47); Hemoglobin 13.5 g/dl (12.0-16.0)
[2021-03-31 11:44] LABS: Anion Gap 12 (12-20); Blood Urea Nitrogen 9 mg/dL (9-16); Calcium 9.1 mg/dL (8.4-10.2); Carbon Dioxide 27 mmol/L (22-29); Chloride 102 mmol/L (96-108); Creatinine Clr Calc Pharmacy 85.9; Estimated Glomerular Filt Rate > 60; Glucose Random 136 mg/dL (60-115); Potassium 3.6 mmol/L (3.3-5.1); Sodium 137 mmol/L (135-145)
[2021-03-31] MEDS: Lactated Ringers 1,000 ML 125 ML IVCONT ×2 (13:28→20:49)
[2021-03-31] MEDS: ceFAZolin Sodium/Dextrose,Iso 2 GM/50 ML PIGGYBACK IV (13:28)
[2021-03-31] MEDS: Buprenorphine/Naloxone 12/3 mg FILM 1 FILM SUBLINGUAL (16:20)
[2021-03-31] MEDS: 0.9 % Sodium Chloride Flush 3 ML SYRINGE IVFLUSH (20:49)
[2021-03-31] MEDS: buPROPion HCL 100 MG TABLET PO (20:49)
[2021-04-01] VITALS: BP 129/70; PULSE 63; RESP 16; TEMP 36.6; O2SAT 96
[2021-04-01 03:25] VITALS: BP 116/63; PULSE 60; RESP 16; TEMP 36.1; O2SAT 96
[2021-04-01] MEDS: Lactated Ringers 1,000 ML 125 ML IVCONT (04:36)
[2021-04-01] MEDS: Levothyroxine Sodium 88 MCG TABLET PO (06:33)
[2021-04-01 06:58] VITALS: BP 114/60; PULSE 60; RESP 18; TEMP 36.1; O2SAT 98
[2021-04-01 07:29] LABS: Anion Gap 11 (12-20); Blood Urea Nitrogen 8 mg/dL (9-16); Calcium 8.8 mg/dL (8.4-10.2); Carbon Dioxide 30 mmol/L (22-29); Chloride 104 mmol/L (96-108); Creatinine Clr Calc Pharmacy 91.5; Estimated Glomerular Filt Rate > 60; Glucose Random 86 mg/dL (60-115); Potassium 4.8 mmol/L (3.3-5.1); Sodium 140 mmol/L (135-145)
--- NOTE | 2021-04-01 07:54 | MHC.CM.PN ---
PATIENT IS FULLY INDEPENDENT. NO DME OR [facility] SERVICES. SHE HAS TRANSPORT HOME TODAY AND HOPES TO BE DISCHARGED BY NOON. PATIENT WILL DISCUSS RETURN TO WORK PLAN WITH SURGICAL TEAM.
[2021-04-01 08:32] LABS: Basophils Percent Auto 0.1 % (0-2); Eosinophils Percent Auto 0.1 % (0-4); Hemoglobin 12.4 g/dl (12.0-16.0); Imm Gran Abs Auto 0.04 X10*3/uL (0.00-0.03); Imm Gran Pct Auto 0.4 % (0.0-0.4); Lymphocytes Absolute Auto 1.7 X10*3/uL (1.2-4.9); Lymphocytes Percent Auto 16.5 % (20-40); MANUAL DIFF FLAG NO; Mean Corpuscular HGB Conc 33.5 g/dl (31.0-35.0); Mean Corpuscular Hemoglobin 30.7 pg (27.0-33.0); Mean Corpuscular Volume 91.6 fL (80-98); Mean Platelet Volume 11.2 fL (9.4-12.3); Monocytes Absolute Auto 0.9 X10*3/uL (0.1-1.2); Monocytes Percent Auto 8.9 % (2-11); Neutrophils Absolute Auto 7.7 X10*3/uL (2.0-8.3); Platelet Count 248 X10*3/uL (160-400); Red Blood Count 4.04 X10*6/uL (4.20-5.50); Red Cell Distribution Width 12.6 % (11.0-16.0); White Blood Count 10.4 X10*3/uL (4.8-10.8)
--- NOTE | 2021-04-01 09:57 | HO.POSTANES ---
Post Anesthesia Evaluation Post Anesthesia Evaluation Vital Signs: Vital Signs Temp Pulse Resp BP Pulse Ox 04/01/21 06:58 97 F 60 18 114/60 98 04/01/21 03:25 96.9 F 60 16 116/63 96 04/01/21 00:00 97.9 F 63 16 129/70 96 Anesthesia: General Endotracheal-GETA Mental Status: Awake Pain Control: Satisfactory Nausea/Vomiting: None Hydration: Adequate Anesthesia-Related Issues: No Anes. Related Issues
[2021-04-01] MEDS: FLUoxetine HCl 20 MG CAPSULE PO (10:05)
[2021-04-01] MEDS: buPROPion HCL 100 MG TABLET PO (10:06)
[2021-04-01] MEDS: Metoprolol Succinate ER 50 MG TAB.ER.24H PO (10:06)
[2021-04-01] MEDS: Famotidine/PF 20 MG/2 ML VIAL IVPUSH (10:06)
[2021-04-01] MEDS: Buprenorphine/Naloxone 12/3 mg FILM 1 FILM SUBLINGUAL (10:21)
[2021-04-01 11:03] VITALS: BP 125/59; PULSE 59; RESP 18; TEMP 36.4; O2SAT 97
== END 2021-04-01 12:25 | disposition home or self-care (01) | DRG 403 ==
LOC: HO.SSSA 10:27 → HO.S3 11:34
PROVIDERS: Physician Assistant; Admitting Provider Surgery; PCP Internal Medicine; Visit Provider Surgery
PROC: 0DB64Z3 Excision of Stomach, Percutaneous Endoscopic Approach, Vertical (ICD-10-PCS; CPT 43845; principal; 2021-03-31 07:30)
DX: E66.01 Morbid (severe) obesity due to excess calories (principal); K76.0 Fatty (change of) liver, not elsewhere classified; F11.20 Opioid dependence, uncomplicated; K44.0 Diaphragmatic hernia with obstruction, without gangrene; F32.9 Major depressive disorder, single episode, unspecified; I10 Essential (primary) hypertension; Z68.32 Body mass index [BMI] 32.0-32.9, adult; E06.3 Autoimmune thyroiditis; K21.9 Gastro-esophageal reflux disease without esophagitis; Z20.822 Contact with and (suspected) exposure to COVID-19; Z87.891 Personal history of nicotine dependence; Z79.51 Long term (current) use of inhaled steroids; Z79.890 Hormone replacement therapy; Z79.899 Other long term (current) drug therapy
CPT/HCPCS: 36415; 80048; 80053; 80061; 83036; 83525; 84439; 84443; 85014; 85018; 85025; 85610; 85730; 86140; 86850; 86900; 86901; 87635; 88307; 88342; A4649; J0131; J0690; J1100; J1170; J1200; J2250; J2405; J2550; J3010

== ENCOUNTER → 2021-04-06 14:54 | Outpatient (BNVA) | payer OTHER, SELFPAY | PROVIDERS: PCP Internal Medicine; Visit Provider Surgery | DX: E66.9 Obesity, unspecified (principal); Z68.31 Body mass index [BMI] 31.0-31.9, adult | CPT/HCPCS: 99212 ==

== ENCOUNTER → 2021-04-28 09:52 | Outpatient (BNVA) | payer OTHER, SELFPAY | PROVIDERS: PCP Internal Medicine; Visit Provider Internal Medicine ==

== ENCOUNTER → 2021-05-06 07:27 | Outpatient (BNVA) | payer OTHER, SELFPAY | PROVIDERS: PCP Internal Medicine; Visit Provider Surgery ==

== ENCOUNTER → 2021-05-09 07:47 | Outpatient (BNVA) | payer OTHER, SELFPAY | PROVIDERS: PCP Internal Medicine; Visit Provider Surgery | DX: E66.9 Obesity, unspecified (principal); Z68.30 Body mass index [BMI] 30.0-30.9, adult; Z79.899 Other long term (current) drug therapy | CPT/HCPCS: 99212 ==

== ENCOUNTER 2021-06-02 12:30 | Outpatient (REF) | payer OTHER, SELFPAY ==
[2021-06-02 14:04] LABS: Thyroid Stimulating Hormone 2.32 uIU/mL (0.32-4.0); Vitamin D 25-OH Total 31.1 ng/mL (>30)
== END 2021-06-02 12:31 | disposition home or self-care (01) ==
LOC: HO.10HDL 12:30
PROVIDERS: Visit Provider Internal Medicine
DX: E06.3 Autoimmune thyroiditis (principal); E55.9 Vitamin D deficiency, unspecified
CPT/HCPCS: 36415; 82306; 84439; 84443

== ENCOUNTER 2022-01-18 12:14 | Outpatient (REF) | payer OTHER, SELFPAY ==
[2022-01-18 14:24] LABS: Free T4 (Free Thyroxine) 0.89 ng/dL (0.71-1.85); Thyroid Stimulating Hormone 1.49 uIU/mL (0.32-4.0); Vitamin D 25-OH Total 22.6 ng/mL (>30)
[2022-01-19 22:25] LABS: Thyroglobulin Antibodies 44 IU/mL (< or = 1); Thyroid Peroxidase Antibodies 15 IU/mL (<9)
== END 2022-01-18 12:15 | disposition home or self-care (01) ==
LOC: HO.HMGCLDS 12:14
PROVIDERS: Internal Medicine; Visit Provider Nurse Practitioner Gerontology
DX: E06.3 Autoimmune thyroiditis (principal); E55.9 Vitamin D deficiency, unspecified
CPT/HCPCS: 36415; 82306; 84439; 84443; 86376; 86800

== ENCOUNTER 2022-01-20 11:11 | Outpatient (REF) | payer OTHER, SELFPAY ==
[2022-01-20 11:26] LABS: MANUAL DIFF FLAG NO
[2022-01-20 11:47] LABS: Basophils Percent Auto 0.3 % (0-2); Eosinophils Absolute Auto 0.1 X10*3/uL (0.0-0.4); Eosinophils Percent Auto 1.2 % (0-4); Hematocrit 43.5 % (37.0-47.0); Imm Gran Abs Auto 0.01 X10*3/uL (0.00-0.03); Imm Gran Pct Auto 0.2 % (0.0-0.4); Lymphocytes Absolute Auto 2.7 X10*3/uL (1.2-4.9); Lymphocytes Percent Auto 40.6 % (20-40); Mean Corpuscular HGB Conc 32.2 g/dl (31.0-35.0); Mean Corpuscular Hemoglobin 30.7 pg (27.0-33.0); Mean Corpuscular Volume 95.4 fL (80.0-98.0); Mean Platelet Volume 9.7 fL (9.4-12.3); Monocytes Absolute Auto 0.8 X10*3/uL (0.1-1.2); Monocytes Percent Auto 12.4 % (2-11); Neutrophils Percent Auto 45.3 % (45-73); Platelet Count 293 X10*3/uL (160-400); Red Blood Count 4.56 X10*6/uL (4.20-5.50); Red Cell Distribution Width 12.8 % (11.0-16.0); White Blood Count 6.5 X10*3/uL (4.8-10.8)
[2022-01-20 12:01] LABS: Estimated Average Glucose 103 mg/dL; Hemoglobin A1c % 5.2 %
[2022-01-20 12:27] LABS: Alanine Aminotransferase 23 U/L (0-31); Albumin Level 4.1 g/dL (3.5-5.0); Alkaline Phosphatase 74 U/L (39-117); Anion Gap 14 (12-20); Aspartate Amino Transferase 20 U/L (5-31); Bilirubin Total 0.4 mg/dL (0.0-1.0); Blood Urea Nitrogen 19 mg/dL (9-16); Calcium 9.6 mg/dL (8.4-10.2); Carbon Dioxide 30 mmol/L (22-29); Chloride 102 mmol/L (96-108); Cholesterol 235 mg/dL; Estimated Glomerular Filt Rate > 60; Glucose Random 74 mg/dL (60-115); HDL Cholesterol 79 mg/dL; LDL Cholesterol Calculated 137 mg/dl; Potassium 4.5 mmol/L (3.3-5.1); Sodium 141 mmol/L (135-145); Total Protein 7.1 g/dL (6.5-8.0); Triglycerides 98 mg/dL
[2022-01-20 12:48] LABS: Vitamin B12 247 pg/mL (200-900)
[2022-01-21 09:41] LABS: LDL Cholesterol Direct 124 mg/dL (<100)
== END 2022-01-20 11:12 | disposition home or self-care (01) ==
LOC: HO.LAB 11:11
PROVIDERS: PCP Internal Medicine; Visit Provider Internal Medicine
DX: E03.9 Hypothyroidism, unspecified (principal); E66.3 Overweight; Z71.3 Dietary counseling and surveillance; Z79.899 Other long term (current) drug therapy; Z87.891 Personal history of nicotine dependence; Z98.84 Bariatric surgery status; Z98.890 Other specified postprocedural states; Z87.19 Personal history of other diseases of the digestive system
CPT/HCPCS: 36415; 80053; 80061; 82607; 83036; 83721; 85025; 99212

== ENCOUNTER 2022-02-23 14:53 | Outpatient (REF) | payer OTHER, SELFPAY ==
--- NOTE | ~2022-02-23 | MM_ITS ---
EXAMINATION: MM SCREENING DIGITAL BREAST TOMOSYNTHESIS, BILATERAL CLINICAL INFORMATION: Screening. Asymptomatic. The lifetime risk of breast cancer based on the Tyrer-Cuzick Model is 8.4%. COMPARISON: Mammography: January 20, 2021 and studies dating back to May 31, 2012 TECHNIQUE: Digital breast tomosynthesis is performed in both the craniocaudal and mediolateral oblique views along with computer-aided detection (CAD). Synthesized 2D images are generated from the tomosynthesis. FINDINGS: There are scattered areas of fibroglandular density (ACR BI-RADS breast composition Category b). There are no significant masses, abnormal calcifications, or other abnormalities. MM/MM tomosynthesis screening BI IMPRESSION: There are no significant changes from prior study. ASSESSMENT: BI-RADS 1: Negative RECOMMENDATION: Routine annual mammography screening. This patient's information was entered into a reminder system with a target due date for their next mammogram.
== END 2022-02-23 14:54 | disposition home or self-care (01) ==
LOC: HO.MAMMO 14:53
PROVIDERS: PCP Internal Medicine; Visit Provider Internal Medicine
DX: Z12.31 Encounter for screening mammogram for malignant neoplasm of breast (principal)
CPT/HCPCS: 77063; 77067

== ENCOUNTER → 2022-03-03 10:30 | Outpatient (BNVA) | payer OTHER, SELFPAY | PROVIDERS: PCP Internal Medicine; Referring Provider Internal Medicine; Visit Provider Physician Assistant | DX: E66.3 Overweight (principal); Z68.27 Body mass index [BMI] 27.0-27.9, adult; Z98.84 Bariatric surgery status | CPT/HCPCS: 99212 ==

== ENCOUNTER → 2022-03-21 09:37 | Outpatient (BNVA) | payer OTHER, SELFPAY | PROVIDERS: PCP Internal Medicine; Referring Provider Internal Medicine; Visit Provider Nurse Practitioner Family | DX: Z12.11 Encounter for screening for malignant neoplasm of colon (principal) | CPT/HCPCS: 99202 ==

== ENCOUNTER 2022-07-19 10:33 | Day surgery (SDC) | payer OTHER, SELFPAY ==
[2022-07-14 11:00] VITALS: BMI 27.4
--- NOTE | 2022-07-18 11:01 | P.CONAN_ITS ---
Documented by User: Jessa Singh NP 07/18/22 11:04 HPI - Anesthesia Eval Consult details Narrative: 52yo F for Colonoscopy Suboxone daily PMFSH Active Problems Active Problems: All Active Problems (Updated 01/20/22 @ 12:07 by Kathryn Lancaster PA-C) BMI over 35 (Acute) Hypertension (Acute) S/P laparoscopic sleeve gastrectomy (Acute) Status post repair of paraesophageal diaphragmatic hernia (Acute) Diaphragmatic hernia (Acute) Obesity (Acute) BMI 31.0-31.9,adult (Acute) BMI 30.0-30.9,adult (Acute) Overweight (BMI 25.0-29.9) (Acute) Vitamin D deficiency (Acute) Steatosis, liver (Acute) Autoimmune hypothyroidism (Acute) Depression (Acute) Past Medical History Medical History Autoimmune hypothyroidism BMI 32.0-32.9,adult BMI 34.0-34.9,adult BMI 36.0-36.9,adult COVID-19 vaccine administered Depression History of opioid abuse Hypothyroidism Palpitations Steatosis, liver Vitamin D deficiency Family History Family History Mother Brain tumor Father Vascular disease COPD (chronic obstructive pulmonary disease) Diabetes mellitus Son No problems noted. Daughter No problems noted. Daughter No problems noted. Family history of problems with anesthesia: No Surgical History Surgical History (Updated 07/14/22 @ 10:51 by Karla Barbour RN) History of sleeve gastrectomy Hx of section Hx of hysterectomy Hx of mammogram Obesity History of Problems with Anesthesia: No Social History Social History Household Members: Children Are you a primary anesthesiologist and critical care to a significant other at home: Yes (children are 17 & 18 years old but are self-sufficient) Do you presently have visiting nurse or other home services: No Alcohol intake: former Year quit: 2009 Patient Tobacco Use Status: Former Tobacco user Quit Date: 2019 Tobacco use type: Cigarette Years Smoked: 30 Use of substances other than those prescribed or required for medical reasons: No Substance Use Type: Former Substance User and Heroin Are you DNR?: No Advance Directives: No Advance Directives Information Provided: Yes service: No Current occupational status: employed Meds Allergies Allergy/AdvReac Type Severity Reaction Status Date / Time No Known Allergies Allergy Verified 07/14/22 10:55 Home Medications Medication Instructions Recorded Confirmed Last Taken Type buprenorphine 12 mg-naloxone 3 mg 15 mg sublingual DAILY 08/27/20 07/14/22 03/29/21 History sublingual film bupropion HCl 100 mg tablet 100 mg PO BID 08/27/20 07/14/22 03/31/21 04:30 History hydrochlorothiazide 25 mg tablet 25 mg PO DAILY 01/20/22 07/14/22 Unknown History cyanocobalamin (vitamin B-12) 1,000 mcg PO DAILY 03/03/22 07/14/22 Unknown History 1,000 mcg tablet fluoxetine 20 mg capsule 30 mg PO DAILY 03/03/22 07/14/22 Unknown History Exam Exam Date and Time: July 18, 2022 1101 Height,Weight and Vital Signs: Height 5 ft 3 in Weight 70.307 kg Pertinent Lab Results Pertinent Lab Results: Laboratory Tests 03/25/21 01/20/22 01/20/22 08:05 11:24 11:24 WBC 6.5 Hgb 14.0 Hct 43.5 Plt Count 293 Sodium 141 Potassium 4.8 4.5 Chloride 102 Carbon Dioxide 30 H BUN 19 H Creatinine 0.89 Assessment and Plan Assessment Anesthesia Assessment: Chart Reviewed Final Anesthetic Review Family History of Problems with Anesthesia: No History of Problems with Anesthesia: No Documented by User: Emilee Alberto MD 07/19/22 10:59 [facility] Past Medical History Medical History Autoimmune hypothyroidism BMI 32.0-32.9,adult BMI 34.0-34.9,adult BMI 36.0-36.9,adult COVID-19 vaccine administered Depression History of opioid abuse Hypothyroidism Palpitations Steatosis, liver Vitamin D deficiency Family History Family History Mother Brain tumor Father Vascular disease COPD (chronic obstructive pulmonary disease) Diabetes mellitus Son No problems noted. Daughter No problems noted. Daughter No problems noted. Surgical History Surgical History (Updated 07/14/22 @ 10:51 by Karla Barbour RN) History of sleeve gastrectomy Hx of section Hx of hysterectomy Hx of mammogram Obesity Social History Social History Household Members: Children Are you a primary anesthesiologist and critical care to a significant other at home: Yes (children are 17 & 18 years old but are self-sufficient) Do you presently have visiting nurse or other home services: No Alcohol intake: former Year quit: 2009 Patient Tobacco Use Status: Former Tobacco user Quit Date: 2019 Tobacco use type: Cigarette Years Smoked: 30 Use of substances other than those prescribed or required for medical reasons: No Substance Use Type: Former Substance User and Heroin Are you DNR?: No Advance Directives: No Advance Directives Information Provided: Yes service: No Current occupational status: employed Meds Allergies Allergy/AdvReac Type Severity Reaction Status Date / Time No Known Allergies Allergy Verified 07/14/22 10:55 Home Medications Medication Instructions Recorded Confirmed Last Taken Type buprenorphine 12 mg-naloxone 3 mg 15 mg sublingual DAILY 08/27/20 07/14/22 03/29/21 History sublingual film bupropion HCl 100 mg tablet 100 mg PO BID 08/27/20 07/14/22 03/31/21 04:30 History hydrochlorothiazide 25 mg tablet 25 mg PO DAILY 01/20/22 07/14/22 Unknown History cyanocobalamin (vitamin B-12) 1,000 mcg PO DAILY 03/03/22 07/14/22 Unknown History 1,000 mcg tablet fluoxetine 20 mg capsule 30 mg PO DAILY 03/03/22 07/14/22 Unknown History Exam Airway Mallampati Class: I TM Dist: >3cm Neck ROM: Full Assessment and Plan Assessment Anesthesia Assessment: Anesthesia Plan Discussed Final Anesthetic Review NPO: Yes ASA Class: II Final Preanesthetic Review: No Changes in Pt Med Stat, Meds/Allgs Chart Reviewed, Consent Obtained/Reviewed and Anes Risks/Benef Reviewed Patient Risk: Low Procedure Risk: Low Anesthetic Plan Anesthetic Plan: MAC: Disposition: Standard PACU
[2022-07-19 10:52] VITALS: BP 132/83; PULSE 59; RESP 18; TEMP 36.5; O2SAT 98
--- NOTE | 2022-07-19 11:03 | P.HPSUR_ITS ---
Pre-Procedural Eval Section A Date of Service: 07/19/22 Section B Chief Complaint: screening Relevant Family History (Specify if Yes): No Relevant Social History: None Present Medications: see Short Stay Collaborative assessment Medical History: Significant History (Autoimmune hypothyroidism BMI 32.0- 32.9,adult BMI 34.0-34.9,adult BMI 36.0-36.9,adult COVID-19 vaccine administered Depression History of opioid abuse Hypothyroidism Palpitations Steatosis, liver Vitamin D deficiency) History of Previous Operations: Relevant previous surgery/procedure and date(s) (History of sleeve gastrectomy Hx of section Hx of hysterectomy Hx of mammogram Obesity) Allergies: Allergies Allergy/AdvReac Type Severity Reaction Status Date / Time No Known Allergies Allergy Verified 07/14/22 10:55 Review of Systems Sugical H&P ROS: Negative: Constitution, Cardiovascular, Respiratory, Neurological, Psychiatric, Hem-Onc, Allergic/Immunologic, Gastrointestinal, Genitourinary, Musculoskeletal, Integumentary, Endocrine and Eyes/Ears/Nose/Throat Exam Surgical H&P Exam: Normal: HEENT, Normal: Heart, Normal: Lungs, Normal: Extremities, Normal: Abdomen, Normal: Skin and Normal: Neurological Plan Diagnosis/Plan: Unchanged I have reviewed the history and physical and performed a pertinent physical examination on my patient. No changes have occurred unless specified.
--- NOTE | 2022-07-19 11:05 | W.PM.OPN ---
Operative Note Operative Note Date of Service: 07/19/22 Narrative: Operative Information Procedure Description: Colonoscopy Indication: screening Anesthesia: MAC COLONOSCOPY Instrument: Olympus variable stiffness pediatric scope 190L Colonoscopy Monitoring: Vital signs and clinical assessment, continuous EKG monitoring, Pulse oximetry, Carbon Dioxide monitoring and blood pressure monitoring were done throughout the procedure. Colon withdrawal time was 12 minutes. Procedure: The patient was placed in the left lateral decubitis position and pre-procedure medications were administered. After a digital rectal examination of the ano-rectum, the video colonoscope was inserted into the rectum and advanced through the colon to the cecum/TI. The colonoscope was slowly withdrawn in a retrograde panoramic fashion and the colon mucosa was carefully examined including a retroflexed view of the rectum. Findings and interventions are described below. Procedure Difficulty: moderate, pressure applied to reach cecum Findings: Terminal Ileum-not intubated Cecum:normal Ascending Colon: normal Transverse Colon -normal Descending Colon:normal Sigmoid Colon: normal Rectum: Retroflexion with small internal hemorrhoids, grade I Anorectum - normal Colon preparation: [place] Bowel Preparation Scale Right colon; 2 Transverse colon: 1-2 Left colon; 1 (0 = Unprepared colon segment with mucosa not seen due to solid stool that cannot be cleared. 1 = Portion of mucosa of the colon segment seen, but other areas of the colon segment not well seen due to staining, residual stool and/or opaque liquid. 2 = Minor amount of residual staining, small fragments of stool and/or opaque liquid, but mucosa of colon segment seen well. 3 = Entire mucosa of colon segment seen well with no residual staining, small fragments of stool or opaque liquid) Impression and Post Procedure Diagnosis: internal hemorrhoids Plan: High fiber diet leaflet Avoid straining at stool, epsom salts and sitz bath, anusol supps or cream Repeat Colonoscopy in 6-12 months or earlier if clinically indicated Above findings were reviewed with the patient and relevant handouts were provided if indicated.
[2022-07-19 11:59] VITALS: BP 91/60; PULSE 76; RESP 16; TEMP 36.1; O2SAT 99
[2022-07-19 12:14] VITALS: BP 93/63; PULSE 64; RESP 16; O2SAT 100
[2022-07-19 12:29] VITALS: BP 116/68; PULSE 57; RESP 16; TEMP 36.6; O2SAT 99
== END 2022-07-19 13:14 | disposition home or self-care (01) ==
PROVIDERS: PCP Internal Medicine; Visit Provider Internal Medicine Gastroenterology
PROC: 0DJD8ZZ Inspection of Lower Intestinal Tract, Via Natural or Artificial Opening Endoscopic (ICD-10-PCS; CPT 45378; principal; 2022-07-19 11:50)
DX: Z12.11 Encounter for screening for malignant neoplasm of colon (principal); K64.0 First degree hemorrhoids; E06.3 Autoimmune thyroiditis; R00.2 Palpitations; F32.A Depression, unspecified; F11.20 Opioid dependence, uncomplicated; K76.0 Fatty (change of) liver, not elsewhere classified; E55.9 Vitamin D deficiency, unspecified; Z79.899 Other long term (current) drug therapy; Z98.84 Bariatric surgery status; Z87.891 Personal history of nicotine dependence
CPT/HCPCS: 45378

== ENCOUNTER 2023-03-21 12:47 | Outpatient (REF) | payer OTHER, SELFPAY | END 2023-03-21 12:48 | disposition home or self-care (01) | LOC: HO.SH 12:47 | PROVIDERS: Visit Provider Registered Nurse | DX: Z01.118 Encounter for examination of ears and hearing with other abnormal findings (principal); H93.293 Other abnormal auditory perceptions, bilateral; H61.21 Impacted cerumen, right ear | CPT/HCPCS: 92552; 92556; 92567; 92588; 92700 ==

== ENCOUNTER 2023-03-21 13:18 | Outpatient (REF) | payer SELFPAY | END 2023-03-21 13:19 | disposition home or self-care (01) | LOC: HO.HAP 13:18 | PROVIDERS: Visit Provider Registered Nurse | DX: Z46.1 Encounter for fitting and adjustment of hearing aid (principal); H93.293 Other abnormal auditory perceptions, bilateral; H61.21 Impacted cerumen, right ear | CPT/HCPCS: 92700 ==

== ENCOUNTER 2023-05-09 10:24 | Outpatient (REF) | payer SELFPAY ==
[2023-05-09 12:43] LABS: HBS Num1 62.44 mIU/mL (0-7.99); HBc Num1 0.11 S/CO (0.00-0.79); HBsAGNum1 0.32 S/CO (0.00-0.99); HIV AB/AG Nonreactive (Nonreactive); HIV Num 1 0.06 S/CO (0.00-0.99); Hepatitis A Antibody IgM 0.15 Index (0-0.79); Hepatitis B Core Antibody Nonreactive (Nonreactive); Hepatitis B Surface Antigen Negative (Negative); ~HepC Num1 0.06 S/CO (0.00-0.79); ~Hepatitis A Antibody IgM Nonreactive (Nonreactive); ~Hepatitis B Surface Antibody REACTIVE (Nonreactive); ~Hepatitis C Antibody Nonreactive (Nonreactive)
[2023-05-10 01:48] LABS: Alanine Aminotransferase 31 U/L (0-31); Albumin Level 4.1 g/dL (3.5-5.0); Alkaline Phosphatase 75 U/L (39-117); Anion Gap 12 (12-20); Aspartate Amino Transferase 23 U/L (5-31); Bilirubin Total 0.3 mg/dL (0.0-1.0); Blood Urea Nitrogen 16 mg/dL (9-16); Calcium 9.7 mg/dL (8.4-10.2); Carbon Dioxide 31 mmol/L (22-29); Chloride 100 mmol/L (96-108); Cholesterol 231 mg/dL; Estimated Glomerular Filt Rate > 60; Glucose Random 70 mg/dL (60-115); HDL Cholesterol 74 mg/dL; LDL Cholesterol Calculated 142 mg/dl; Potassium 3.7 mmol/L (3.3-5.1); Sodium 139 mmol/L (135-145); Total Protein 7.1 g/dL (6.5-8.0); Triglycerides 77 mg/dL
== END 2023-05-09 10:25 | disposition home or self-care (01) ==
LOC: HO.HHCL 10:24
PROVIDERS: Visit Provider Registered Nurse
DX: I10 Essential (primary) hypertension (principal)
CPT/HCPCS: 36415; 80053; 80061; 86704; 86706; 86709; 86803; 87340; 87389

== ENCOUNTER 2023-08-10 10:46 | Outpatient (REF) | payer OTHER, SELFPAY | END 2023-08-10 10:47 | disposition home or self-care (01) | LOC: HO.HHCL 10:46 | PROVIDERS: Visit Provider Registered Nurse | DX: E03.8 Other specified hypothyroidism (principal) | CPT/HCPCS: 36415; 84443 ==

== ENCOUNTER 2024-08-06 11:35 | Outpatient (REF) | payer OTHER, SELFPAY ==
[2024-08-06 14:16] LABS: Anion Gap 12 (12-20); Blood Urea Nitrogen 14 mg/dL (9-16); Calcium 9.5 mg/dL (8.4-10.2); Carbon Dioxide 28 mmol/L (22-29); Chloride 104 mmol/L (96-108); Cholesterol 231 mg/dL (<200); Estimated Glomerular Filt Rate > 60; Glucose Random 92 mg/dL (60-115); HDL Cholesterol 85 mg/dL (>40); LDL Cholesterol Calculated 130 mg/dL (<100); Potassium 4.1 mmol/L (3.3-5.1); Sodium 140 mmol/L (135-145); Triglycerides 80 mg/dL (<150)
[2024-08-06 14:19] LABS: Thyroid Stimulating Hormone 2.05 uIU/mL (0.32-4.0); Vitamin D 25-OH Total 70.1 ng/mL (>30)
[2024-08-06 16:25] LABS: CT PCR NOT DETECTED (Not Detect.); NG PCR NOT DETECTED (Not Detect.)
[2024-08-07 08:20] LABS: Syphilis Screen Nonreactive (Nonreactive)
[2024-08-07 08:47] LABS: HIV AB/AG Nonreactive (Nonreactive); HIV Num 1 0.05 S/CO (0.00-0.99)
== END 2024-08-06 11:36 | disposition home or self-care (01) ==
LOC: HO.HHCL 11:35
PROVIDERS: Visit Provider Registered Nurse
DX: Z11.3 Encounter for screening for infections with a predominantly sexual mode of transmission (principal); I10 Essential (primary) hypertension; E06.3 Autoimmune thyroiditis; E55.9 Vitamin D deficiency, unspecified
CPT/HCPCS: 36415; 80048; 80061; 82306; 84443; 86780; 87389; 87491; 87591

== ENCOUNTER 2024-11-21 13:48 | Outpatient (REF) | payer OTHER, SELFPAY ==
--- OUTSIDE RECORDS SUMMARY | 2024-11-21 13:52 | XMS_ITS | Encounter Summary ---
Author Organization [employer] Address [address] [place] [address] 7 [place] [address] Care Team Providers Care Head Girls Golf Coach Name Role Phone [place] [facility] Primary Care Provider [phone] Reason for Visit * Reason Onset Date Comments Med Refill 10/27/2024 Encounter Details Date Type Department Care Team (Late st Contact Info) Description 10/27/[address] [facility] [address] [place], [place] [phone] [facility] [address] [place], [place] [phone] Opioid type dependence, continuous (CMS/HCC) (Primary Dx) Social History Tobacco Use Types Packs/Day Years Used Date Smoking Tobacco: Never Smokeless Tobacco: Never Alcohol Use Standard Drinks/Week Comments Never 0 (1 standard drink = 0.6 oz pur e alcohol) Depression Answer Date Recorded Patient Health Questionnaire-9 Score 0 02/15/2024 Patient Health Questionnaire-9 Score 0 02/15/2024 Last PHQ-9: Questionnaire Data Not on file 0 02/15/2024 Housing Stability Answer Date Recorded What is your housing situation today? I have xi meeks 08/10/[address] you li ve. Do you have problems with any of the following? None of the above 08/10/2023 Food Insecurity Answer Date Recorded Within the past 12 months, y ou worried that your food would run out before you got money to buy more: Never True 08/10/2023 Within the past 12 months,th e food you bought just didn't last and you didn't have enough money to get more: Never True Transportation Answer Date Recorded In the past 12 months, has l ack of transportation kept you from medical appts, meetings, work or from getting things needed for daily living? No 08/10/2023 Utilities Answer Date Recorded In the past 12 months, has t he electric, gas, oil or water company threatened to shut off services in your home? No 08/10/2023 Depression Answer Date Recorded Patient Health Questionnaire-2 Score 0 02/15/2024 Comments Unknown Sex and Gender Information Value Date Recorded Sex Assigned at Female 08/21/2022 10:34 AM EDT Legal Sex Female 10:34 AM EDT Gender Identity Female 08/21/2022 10:34 AM EDT Sexual Orientation Straight 08/21/2022 10 :34 AM EDT documented as of this encounter Miscellaneous Notes * Telephone Encounter - Rory Spears - 10/27/2024 8:37 AM EST TC from pt requesting medication refill. Medications needing refill : clonazePAM (KlonoPIN) 0.5 MG tablet To be sent to: [facility]/pharmacy #[id number] - [place], [place] - [address] [facility] documented in this encounter Plan of Treatment Upcoming Encounters Date Type Department Care Team ([facility] st Contact Info) Description 12/05/2024 9:00 AM EST Office Visit [facility] [address] [place] [phone] [place] Theodora [facility] [address] [place] [address] 12/11/2024 3:00 PM EST Office Visit [facility] [address] [place] [phone] Kim Amaya MD 230 [place] [address] documented as of this encounter Visit Diagnoses Diagnosis Opioid type dependence, continuous (CMS/HCC)- Primary Opioid type dependence, continuous documented in this encounter Additional Health Concerns Assessment Noted Time PHQ-9 Depression Total Score: 0 02/15/20 24 10:17 AM EDT documented as of this encounter Care Teams Head Girls Golf Coach Relationship Specialty Start Date End Date Theodora Cota FNP [address] [place] [phone] PCP - General Family Medicine 10/18/22 documented as of this encounter
--- OUTSIDE RECORDS SUMMARY | 2024-11-21 13:52 | XMS_ITS | Encounter Summary ---
Author Organization [employer] Address [address] [facility] 7t [place] [address] Care Team Providers Care Warp Hanger Name Role Phone Theodora Cota MECHANICAL DEVELOPER [place] Primary Care Provider [phone] Encounter Details Date Type Department Care Team (Late st Contact Info) Description 09/06/2023 Abstract [facility] 230 [place], [place] [phone] Tonya Pulido Social History Tobacco Use Types Packs/Day Years Used Date Smoking Tobacco: Never Smokeless Tobacco: Never Alcohol Use Standard Drinks/Week Comments Never 0 (1 standard drink = 0.6 oz pur e alcohol) Depression Answer Date Recorded Patient Health Questionnaire-9 Score 0 08/10/2023 Patient Health Questionnaire-9 Score 0 08/10/2023 Last PHQ-9: Questionnaire Data Not on file 1 Housing Stability Answer Date Recorded What is [...] Date Recorded Patient Health Questionnaire-2 Score 0 08/10/2023 Comments Unknown Sex and Gender Information Value Date Recorded Sex Assigned at Female 08/21/2022 10:34 AM EDT Legal Sex Female 10:34 AM EDT Gender Identity Female 08/21/2022 10:34 AM EDT Sexual Orientation Straight 08/21/2022 10 :34 AM EDT documented as of this encounter Plan of Treatment Upcoming Encounters Date Type Department Care Team (Late st Contact Info) Description 12/05/2024 9:00 AM EST Office Visit [address] [address] Theodora Cota FNP 230 [place] [address] 12/11/2024 3:00 PM EST Office Visit [address] [address] Kim Amaya MD 230 [place] [address] documented as of this encounter Procedures Procedure Name Priority Date/Time Associated Diagnosis Comments COLONOSCOPY Routine 07/19/2022 documented in this encounter Results * Colonoscopy (07/19/2022) Colonoscopy Normal Normal Narrative Tess Tonya - 07/19/2022 Recommended 1 year follow up us Historical Provider HEALTH MAINTENANCE Final Result documented in this encounter Visit Diagnoses Not on filedocumented in this encounter Additional Health Concerns Assessment Noted Time PHQ-9 Depression Total Score: 0 08/10/20 23 10:11 AM EDT documented as of this encounter Care Teams Warp Hanger Relationship Specialty Start Date End Date Theodora Cota FNP [address] [place] [address] PCP - General Family Medicine 10/18/22 documented as of this encounter
--- OUTSIDE RECORDS SUMMARY | 2024-11-21 13:52 | XMS_ITS | Encounter Summary ---
Author Organization [employer] Address [address] [facility] 7 [place] [address] Care Team Providers Care Enterprise Mobility Architect Name Role Phone [place] [facility] Primary Care Provider [phone] Reason for Visit * Reason Comments Med Refill Encounter Details Date Type Department Care Team ([facility] st Contact Info) Description 08/02/2023 Refill [facility] 230 [place], [place] [phone] [place] [facility] 230 [place], [place] [phone] Dyspepsia Social History Tobacco Use Types Packs/Day Years Used Date Smoking Tobacco: Never Smokeless Tobacco: Never Alcohol Use Standard Drinks/Week Comments Never 0 (1 standard drink = 0.6 oz pur e alcohol) Depression Answer Date Recorded Patient Health Questionnaire-9 Score 0 04/25/2023 Housing Stability Answer Date Recorded What is your housing situation today? I have xi meeks 07/29/[address] you li ve. Do you have problems with any of the following? None of the above 07/29/2023 Food Insecurity Answer Date Recorded Within the past 12 months, y ou worried that your food would run out before you got money to buy more: Never True 07/29/2023 Within the past 12 months,th e food you bought just didn't last and you didn't have enough money to get more: Never True 05/2023 Transportation Answer Date Recorded In the past 12 months, has l ack of transportation kept you from medical appts, meetings, work or from getting things needed for daily living? No 07/29/2023 Utilities Answer Date Recorded In the past 12 months, has t he electric, gas, oil or water company threatened to shut off services in your home? No 07/29/2023 Depression Answer Date Recorded Patient Health Questionnaire-2 Score 0 04/25/2023 Comments Unknown Sex and Gender Information Value [...] Description 12/05/2024 9:00 AM EST Office Visit [facility] [address] [place] [phone] Theodora Cota FNP 230 [place] [address] 12/11/2024 3:00 PM EST Office Visit [address] [address] Kim Amaya MD [address] [place] [phone] documented as of this encounter Visit Diagnoses Diagnosis Dyspepsia Dyspepsia and other specified disorders of function of stomach documented in this encounter Additional Health Concerns Assessment Noted Time PHQ-9 Depression Total Score: 0 04/25/20 23 10:12 AM EDT documented as of this encounter Care Teams Enterprise Mobility Architect Relationship Specialty Start Date End Date Theodora Cota FNP [address] [place] [phone] PCP - General Family Medicine 10/18/22 documented as of this encounter
--- OUTSIDE RECORDS SUMMARY | 2024-11-21 13:52 | XMS_ITS | Encounter Summary ---
Author Organization [employer] Address [address] [facility] 7 [place] [address] Care Team Providers Care Kindergarten Teacher Name Role Phone [place] [facility] Primary Care Provider [phone] Reason for Visit * Reason Comments Med Refill Encounter Details Date Type Department Care Team ([facility] st Contact Info) Description 01/24/2024 Refill [facility] 230 [place], [place] [phone] [place] [facility] 230 [place], [place] [phone] Social History Tobacco Use Types Packs/Day Years [...] Description 12/05/2024 9:00 AM EST Office Visit [facility] [address] [place] [address] Theodora Cota FNP 230 [place] [address] 12/11/2024 3:00 PM EST Office Visit [address] [address] Kim Amaya MD [address] [place] [address] documented as of this encounter Visit Diagnoses Not on filedocumented in this encounter Additional Health Concerns Assessment Noted Time PHQ-9 Depression Total Score: 0 08/10/20 23 10:11 AM EDT documented as of this encounter Care Teams Kindergarten Teacher Relationship Specialty Start Date End Date Theodora Cota FNP [address] [place] [phone] PCP - General Family Medicine 10/18/22 documented as of this encounter
--- OUTSIDE RECORDS SUMMARY | 2024-11-21 13:52 | XMS_ITS | Encounter Summary ---
Author Organization [employer] Address [address] [facility] 7 [place] [address] Care Team Providers Care Mail Service Coordinator Name Role Phone [facility] Primary Care Provider [phone] Reason for Visit * Reason Onset Date Comments Nurse Triage 10/02/2024 Encounter Details Date Type Department Care Team ([facility] st Contact Info) Description 10/02/2024 Telephone [facility] 230 [place], [place] [phone] [facility] 230 [place], [place] [phone] Nurse Triage Social History Tobacco Use Types Packs/Day Years [...] enough money to get more: Never True 10/ Transportation Answer Date Recorded In the past [...] encounter Miscellaneous Notes * Telephone Encounter - Khloe Nobles RN - 10/02/2024 3:05 PM EST Called pt. And notified that RX sent to Pharmacy. * Telephone Encounter - Khloe Nobles RN - 10/02/2024 11:34 AM EST Called pt. She states that she has a big bubble on her bottom lip. Pt. States she gets cold sores xtwice a year. Pt. Has a blistery cluster that started yesterday and it is painful. Pt. Is requesting a RX for Valcyclovir. Pt. Wants a callback when script is sent to Pharmacy or if PCP wants pt. To be seen today. Please advise. Protocol Used: Cold Sores (Fever Blisters) (Adult) Protocol-Based Disposition: Callback or Video Visit by PCP Today Video visit not offered Positive Triage Question: * Cold sores happen frequently and patient wants a prescription medicine to take the next time theyoccur * All higher-acuity triage questions were negative Care Advice Discussed: * Cold Sore - Treatment With Prescription Medicines * Telephone Encounter - Jose Manuel Stewart - 10/02/2024 11:32 AM EST Symptom: Lip Swelling Outcome: Schedule an urgent appointment (within 4 hours) or talk to a nurse or provider soon Reason: Started within the past 24 hours The caller accepted this outcome. Contact pt at [phone] documented in this encounter Plan of Treatment Upcoming Encounters Date Type Department Care Team (Late st Contact Info) Description 12/05/2024 9:00 AM EST Office Visit [facility] [address] [place] [phone] Theodora Cota FNP [address] [place] [address] 12/11/2024 3:00 PM EST Office Visit [facility] [address] [place] [phone] Kim Amaya MD 230 [place] [address] documented as of this encounter Visit Diagnoses Not on filedocumented in this encounter Additional Health Concerns Assessment Noted Time PHQ-9 Depression Total Score: 0 02/15/20 24 10:17 AM EDT documented as of this encounter Care Teams Mail Service Coordinator Relationship Specialty Start Date End Date Theodora Cota FNP [address] [place] [address] PCP - General Family Medicine 10/18/22 documented as of this encounter
--- OUTSIDE RECORDS SUMMARY | 2024-11-21 13:52 | XMS_ITS | Encounter Summary ---
Author Organization [employer] Address [address] [facility] 7 [place] [address] Care Team Providers Care Vehicle Fuel Systems Converter Name Role Phone [facility] Primary Care Provider [phone] Reason for Visit * Reason Onset Date Comments Med Refill 10/24/2024 Encounter Details Date Type Department Care Team (Late st Contact Info) Description 10/24/2024 Refill [facility] 230 [place], [place] [phone] [facility] [address] [place], [place] [phone] Social History Tobacco Use Types Packs/Day Years [...] Description 12/05/2024 9:00 AM EST Office Visit [facility] [address] [place] [address] Theodora Cota [address] [address] 12/11/2024 3:00 PM EST Office Visit [facility] [address] [place] [address] Kim Amaya MD [address] [place] [address] documented as of this encounter Visit Diagnoses Not on filedocumented in this encounter Additional Health Concerns Assessment Noted Time PHQ-9 Depression Total Score: 0 02/15/20 24 10:17 AM EDT documented as of this encounter Care Teams Vehicle Fuel Systems Converter Relationship Specialty Start Date End Date Theodora Cota FNP [address] [place] [phone] PCP - General Family Medicine 10/18/22 documented as of this encounter
--- OUTSIDE RECORDS SUMMARY | 2024-11-21 13:52 | XMS_ITS | Encounter Summary ---
Author Organization [employer] Address [address] [facility] [address] [place] [address] Care Team Providers Care Manager Mountain Name Role Phone Theodora Cota [facility] Primary Care Provider [phone] Reason for Visit * Reason Comments Med Refill Encounter Details Date Type Department Care Team ([facility] st Contact Info) Description 10/05/2024 Refill [facility] MEDICINE [address] [place], [place] [phone] Kayley Burden MD [address] [place] [address] Social History Tobacco Use Types Packs/Day Years [...] Description 12/05/2024 9:00 AM EST Office Visit [facility] MEDICINE [address] [place] [phone] Theodora Cota FNP [address] [place] [phone] 12/11/2024 3:00 PM EST Office Visit [facility] MEDICINE [address] [place] [phone] Kim Amaya MD [address] [place] [phone] documented as of this encounter Visit Diagnoses Not on filedocumented in this encounter Additional Health Concerns Assessment Noted Time PHQ-9 Depression Total Score: 0 02/15/20 24 10:17 AM EDT documented as of this encounter Care Teams Manager Mountain Relationship Specialty Start Date End Date Theodora Cota FNP [address] [place] [phone] PCP - General Family Medicine 10/18/22 documented as of this encounter
--- OUTSIDE RECORDS SUMMARY | 2024-11-21 13:52 | XMS_ITS | Encounter Summary ---
Author Organization [employer] Address [address] [facility] [address] [place] [address] Care Team Providers Care Residential Real Estate Agent Name Role Phone Theodora Cota [facility] Primary Care Provider [phone] Reason for Visit * Reason Comments Med Refill Encounter Details Date Type Department Care Team ([facility] st Contact Info) Description 10/27/2024 Refill [facility] MEDICINE [address] [place], [place] [phone] Name, MD Sudhakar [address] [place] [address] Social History Tobacco Use Types Packs/Day Years [...] Description 12/05/2024 9:00 AM EST Office Visit [facility] MEDICINE [address] [place] [phone] Theodora Cota FNP [address] [place] [address] 12/11/2024 3:00 PM EST Office Visit [facility] MEDICINE [address] [place] [phone] Kim Amaya MD [address] [place] [phone] documented as of this encounter Visit Diagnoses Not on filedocumented in this encounter Additional Health Concerns Assessment Noted Time PHQ-9 Depression Total Score: 0 02/15/20 24 10:17 AM EDT documented as of this encounter Care Teams Residential Real Estate Agent Relationship Specialty Start Date End Date Theodora Cota FNP [address] [place] [phone] PCP - General Family Medicine 10/18/22 documented as of this encounter
--- OUTSIDE RECORDS SUMMARY | 2024-11-21 13:52 | XMS_ITS | Clinical Summary ---
Author Organization [employer] Address [address] [place] [address] 7[address] [place] [address] Care Team Providers Care Salon Manager Name Role Phone Theodora Cota [facility] Primary Care Provider [phone] Allergies Active Allergy Reactions Criticality Noted Date Comments Nitrofurantoin Hives 11/18/2021 Other reaction(s): Hives / Skin Rash Medications Deep Sea Nasal Bonesteel 0.65 % nasal spray USE 1-2 SPRAYS IN EACH NOSTRIL EVERY 2-3 HOURS NEEDED FOR NASAL CONGESTION 022 Active triamcinolone (Kenalog) 0.1 % ointment APPLY A THIN LAYER TO AFFECTED AREA(S) TWICE DAILY 022 Active nicotine (Nicoderm CQ) 21 MG/24HR patch Place 1 patch on the skin 1 (one) time each day at the same time. For 6 weeks, then call for next dose of 14mg. 42 patch 023 Active Diclofenac Sodium 1 % gelIndications:Os teoarthritis of both hands, unspecified osteoarthritis type Apply topically to affected areas twice daily 150 g 1 023 Active atomoxetine (Strattera) 40 MG capsuleIndication s:Attention deficit Take 2 capsules (80 mg) by mouth Once per day. TAKE 2 CAPSULES BY MOUTH EVERY DAY 180 capsule 3 024 2024 Active loratadine (Claritin) 10 MG tabletIndications :Seasonal allergies Take 1 tablet (10 mg) by mouth Once per day. 90 tablet 3 024 2024 Active hydroCHLOROthiazi de (HYDRODiuril) 25 MG tabletIndications :Essential hypertension Take 1 tablet (25 mg) by mouth Once per day. 90 tablet 3 024 2024 Active FLUoxetine (PROzac) 20 MG capsuleIndication s:Attention deficit Take 1 capsule (20 mg) by mouth in the morning. 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 TAKE 1 TABLET BY MOUTH DAILY 90 tablet 3 024 2024 Active simethicone (Simethicone Ultra Strength) 180 MG capsuleIndication s:Dyspepsia TAKE 1 CAPSULE BY MOUTH FOUR TIMES DAILY WITH MEALS AND AT BEDTIME NEEDED 90 capsule 3 Active cyanocobalamin (Vitamin B-12) 1000 MCG tabletIndications :Essential hypertension TAKE 1 TABLET BY MOUTH EVERY DAY 90 tablet 3 Active calcium carbonate (Calcium 600) 600 MG tabletIndications :Essential hypertension Take 1 tablet (600 mg) by mouth with breakfast and with evening meal. 180 tablet 3 024 2024 Active cholecalciferol (Vitamin D-3) 25 MCG (1000 UT) tabletIndications :Essential hypertension Take 1 tablet (25 mcg) by mouth Once per day. 90 tablet 3 024 2024 Active buprenorphine-nal oxone (Suboxone) 4-1 MG per sublingual filmIndications:O pioid dependence in remission (CMS/HCC) Place 1 Film under the tongue Once per day for 28 days. 28 Film Active buprenorphine ER (Sublocade) 100 mg/0.5mL injectionIndicati ons:Uncomplicated opioid dependence (CMS/HCC) Inject 0.5 mL (1 each) under the skin every month to absorb continually. 0.5 mL 5 024 Active estradiol (Estrace) 0.1 MG/GM vaginal creamIndications: Vaginal dryness, menopausal Insert 0.5g vaginally every night for 2 weeks. Then continue 3x weekly 42.5 g 2 024 Active hydrOXYzine HCl (Atarax) 25 MG tablet TAKE 1 TABLET (25 MG) BY MOUTH IF NEEDED AT BEDTIME FOR ANXIETY (INSOMNIA). 84 tablet Active olmesartan (Benicar) 5 MG tabletIndications :Essential hypertension Take 1 tablet (5 mg) by mouth Once per day. 30 tablet 11 024 2024 Active buprenorphine-nal oxone (Suboxone) 2-0.5 MG per sublingual filmIndications:O pioid dependence in remission (CMS/HCC) Place 1 Film under the tongue every other day. 14 Film 1 024 2024 Active FLUoxetine (PROzac) 10 MG capsuleIndication s:Attention deficit Take 1 capsule (10 mg) by mouth Once per day. With 20mg capsule--30 mg total 90 capsule 024 2024 Active clonazePAM (KlonoPIN) 0.5 MG tabletIndications :Opioid type dependence, continuous (CMS/HCC) Take 1 tablet (0.5 mg) by mouth if needed in the morning and at bedtime for anxiety for up to 7 days. 14 tablet 025 Active valACYclovir (Valtrex) 1 g tablet TAKE 1 TABLET BY MOUTH ONCE PER DAY FOR 5 DAYS 5 tablet 025 Active valACYclovir (Valtrex) 1 g tablet Take 1 tablet by mouth every 12 (twelve) hours. 022 2024 Discontinued(R eorder (will not trigger notification to Pharmacy)) clonazePAM (KlonoPIN) 0.5 MG tablet Take 1 tablet (0.5 mg) by mouth if needed in the morning and at bedtime for anxiety for up to 7 days. 14 tablet 024 2024 Discontinued(R eorder (will not trigger notification to Pharmacy)) Active Problems Problem Noted Date Diagnosed Date Healthcare maintenance 08/10/2023 Overview (08/10/2023): Mammo: 02/2022- birads 1; repeat ordered 04/2023 Pap: 07/2019 with SHAUNA Noble, NIL HPV negative. C-scope: 06/2022, repeat 1 year due to poor prep and internal hemorrhoid ([facility]) BMD: Routine age 65 Accepts routine screening Assessment & Plan (08/28/2023 6:18 PM EST): ?? Resubmit referral to GI for repeat colonoscopy ADHD 08/10/2023 Overview (08/10/2023): ?? Strattera Acquired hallux valgus 04/26/2023 CTS (carpal tunnel syndrome) 04/25/2023 Essential hypertension 11/14/2022 Overview (08/28/2023): ?? Hydrochlorothiazide 25mg Maintenance: BMP: 04/2023 Lipid Panel: 07/2023 ASCVD Risk: 2.0% EKG: Obtain baseline at f/u - Aerobic exercise to reduce BP. Initial goal of 30 min walk 3-5x/week. Increase as tolerated. - low-sodium diet (goal: <2g/day) and heart healthy diet such as DASH to reduce BP and prevent ASCVD. - Home BP monitoring 1-2 x day with goal of <140/90. - Seek immediate medical attention for chest pain, palpitations, SOB, syncope, or sudden changes in mental status. - Do not change or discontinue current prescriptions without first consulting health care provider Assessment & Plan (08/28/2023 6:17 PM EST): ?? Well controlled ?? Continue current regimen Opioid dependence 11/14/2022 Hyperkalemia 02/11/2019 Other specified hypothyroidism 02/11/2019 Overview (08/28/2023): ?? Levothyroxine 88mcg Assessment & Plan (08/28/2023 6:17 PM EST): ?? Continue current regimen ?? Will repeat TSH Vitamin D deficiency 02/11/2019 Plantar fasciitis 02/04/2019 Anxiety 02/04/2019 Overview (08/10/2023): fluoxetine, wellbutrin, hydroxyzine. Established with therapist and psychiatrist Palpitations 02/04/2019 Obesity (BMI 30-39.9) 02/04/2019 Resolved Problems Problem Noted Date Diagnosed Date Resolved Date Impetigo 07/29/2023 08/10/2023 Assessment & Plan (07/29/2023 11:45 AM EDT): Lesion appears an small area of impetigo -px mupirocin TID -to RTC if symptoms not improve in next 5 days or earlier if worsening Acute urinary tract infection 04/25/2023 08/10/2023 Pain in wrist 04/25/2023 08/10/2023 Recurrent urinary tract infection 02/04/2019 08/10/2023 Encounters Date Type Department Care Team Description 11/06/2024 Refill [facility] [address] [place] [address] Theodora Cota FNP 11/03/2024 Telephone [facility] [address] [place] [address] Theodora Cota FNP Nurse Triage 10/27/2024 Refill [facility] [address] [facility] [place] [address] Name, MD Sudhakar 10/27/2024 Refill [facility] [address] [facility] [place] [address] Theodora Cota FNP Opioid type dependence, continuous (CMS/HCC) (Primary Dx) 10/24/2024 Refill [facility] [address] [place] [address] Theodora Cota FNP 10/16/2024 Telephone [facility] [address] [facility] [place] [address] Arnulfo Gunn RN 10/10/2024 Refill [facility] [address] [facility] [place] [address] Theodora Cota FNP Attention deficit 10/10/2024 Refill [facility] [address] [facility] [place] [address] Theodora Cota FNP Attention deficit 10/10/2024 Telephone [facility] [address] [facility] [place] [address] Theodora Cota FNP Medication Question 10/09/2024 Refill [facility] [address] [facility] [place] [address] Arnulfo Gunn, RN Opioid dependence in remission (CMS/[facility]) 10/05/2024 Refill [facility] [place] [address] Kayley Burden MD 10/02/2024 Orders Only [facility] [place] [address] Kayley Burden MD Herpes labialis without complication (Primary Dx) 10/02/2024 Telephone [facility] [address] [place] [address] [facility] Nurse Triage 09/24/2024 Telephone [facility] [address], [place] [address] [facility] insurance 09/10/2024 Telephone [facility] [address], [place] [address] Jaquelin Mars RN 09/09/2024 Telephone [facility] [place] [place] [address] [facility] Nurse Triage 08/26/2024 Orders Only [facility] [place] [place] [address] [facility] Essential hypertension (Primary Dx) 08/26/2024 Refill [facility] [place] [address] Kim Amaya MD 08/25/2024 1:00 PM EST Clinical Support [facility] [place] [address] Aida Fernandez, LEANNE Essential hypertension 08/25/2024 Telephone [facility] [place] [address] Aida Fernandez RN 08/25/2024 Travel 08/25/2024 Telephone [facility] [place] [address] [facility] Referral 08/21/2024 1:30 PM EDT Telemedicine [facility] [place] [address] Kim Amyaa MD Opioid type dependence, continuous (CMS/[facility]) (Primary Dx) 08/21/2024 Travel from Last 3 Months Immunizations Name Administration Dates Next Due DT (pediatric) 06/18/2006 INFLUENZA VACCINE QUADRIVALE NT RECOMBINANT PRESERVATIVE FREE RIV4 09/30/2022 Influenza injectable quadriv alent IIV4 with preservative 08/01/2018 Influenza injectable quadriv alent preservative free 08/10/2023,09/08/2020,11/05/2017,07/17 Influenza, seasonal, injecta ble, preservative free 08/06/2024 Influenza, seasonal, intrade rmal, preservative free 08/11/2013 Pfizer Covid-19 Vaccine 12+ 08/06/2024 Pneumococcal Polysaccharide PPSV23 08/11/2013 Tdap 09/21/2020,08/11/2013 Zoster, Recombinant 10/10/2023,08/10/2023 Family History Medical History Relation Name Comments Alcohol abuse Father COPD Father Heart failure Father brain tumor Mother Colon cancer Paternal Grandfather Relation Name Status Comments Father Mother Paternal Grandfather Social History Tobacco Use Types Packs/Day Years Used Date Smoking Tobacco: Never Smokeless Tobacco: Never Tobacco Cessation:Counseling Given: Not Answered Alcohol Use Standard Drinks/Week Comments Never 0 (1 standard drink = 0.6 oz pur e alcohol) Depression Answer Date Recorded Patient Health Questionnaire-9 Score 0 02/15/2024 Patient Health Questionnaire-9 Score 0 02/15/2024 Last PHQ-9: Questionnaire Data Not on file 0 02/15/2024 Housing Stability Answer Date Recorded What is your housing situation today? I have xirubén meeks 08/10/[address] you [...] Orientation Straight 08/21/2022 10 :34 AM EDT Last Filed Vital Signs Vital Sign Reading Time Taken Comments Blood Pressure 146/90 08/25/2024 1:07 PM EST Pulse 75 08/25/2024 1:07 PM EST Temperature 36.3 ??C (97.3 ??F) 08/06/2024 10:08 AM E DT Respiratory Rate 18 08/25/2024 1:07 PM EST Oxygen Saturation 98% 08/25/2024 1:07 PM EST Inhaled Oxygen Concentration - - Weight 67.8 kg (149 lb 6.4 oz) 08/06/2024 10:08 AM EDT Height 160 cm (5' 3 ) 08/06/2024 10:08 AM EDT Body Mass Index 26.47 08/06/2024 10:08 AM EDT Plan of Treatment Upcoming Encounters Date Type Department Care Team (Late st Contact Info) Description 12/05/2024 9:00 AM EST Office Visit [id number] [address] 12/11/2024 3:00 PM EST Office Visit [facility] [address] [place] [phone] Kim Amaya MD [address] [place] [phone] Health Maintenance Due Date Last Done Comments CT Colonography 1970 FIT 1970 FOBT 1970 Sigmoidoscopy 1970 Alcohol/Substance Use Screening 1982 Hepatitis B Vaccines (1 of 3 - 19+ 3-dose series) 1989 Pap Smear 1991 Pneumococcal Vaccine: 50+ Years (2 of 2 - PCV) 2020 08/11/2013 Mammogram 02/24/2024 02/23/2022, 02/23/2022 Cervical Cancer Screening 07/22/2024 HPV/Cotest 07/22/2024 07/30/2019 Depression Screening 02/14/2025 02/15/2024, 02/15/20 SDOH Screening 02/14/2025 02/15/2024 Tobacco Screening 08/06/2025 08/06/2024 Colorectal Cancer Screening 02/19/2027 FIT DNA/Cologuard 02/19/2027 03/12/2024 Lipid Panel 08/06/2029 08/06/2024, 04/21, 07/23/2020 DTaP/Tdap/Td Vaccines (3 - Td or Tdap) 09/21/2030 09/21/2020, 08/11/2013 Colonoscopy 07/19/2032 07/19/2022, 07/19/2022 RSV Patients and Patients Aged 60 years or older (1 - 1-dose 75+ series) 2045 Hepatitis C Screening Completed 05/09/2023 Zoster Vaccines Completed 10/10/2023, 08/10/2023 COVID-19 Vaccine Completed 08/06/2024, , 09/23/2021, Additional history exists HIV Screening Completed 08/06/2024, 05/09/2023 Influenza Vaccine Completed 08/06/2024, , 09/30/2022, Additional history exists HIB Vaccines Aged Out No longer eligi ble based on patient's age to complete this topic HPV Vaccines Aged Out No longer eligi ble based on patient's age to complete this topic Hepatitis A Vaccines Aged Out No long er eligible based on patient's age to complete this topic IPV Vaccines Aged Out No longer eligi ble based on patient's age to complete this topic Meningococcal Vaccine Aged Out No antonina krista eligible based on patient's age to complete this topic RSV under 20 months Aged Out No longe r eligible based on patient's age to complete this topic Rotavirus Vaccines Aged Out No longer eligible based on patient's age to complete this topic Procedures Procedure Name Priority Date/Time Associated Diagnosis Comments HIV 1/2 ANTIGEN/ANTIBODY, FOURTH GENERATION W/RFL Routine 08/06/2024 11:35 AM EDT Routine screening for STI (sexually transmitted infection) LIPID PANEL, STANDARD Routine 08/06/2024 11:35 AM EDT Essential hypertension LAB COLOGUARD?? COLON CANCER SCREEN Routine 03/12/2024 8:00 PM EDT Encounter for screening for malignant neoplasm of colon HEPATITIS PANEL, GENERAL Routine 05/09/2023 10:29 AM EDT Essential hypertension HM COLONOSCOPY Routine 07/19/2022 11:49 AM EDT HM MAMMOGRAPHY Routine 02/23/2022 11:48 AM EDT ZZZ HISTORICAL HPV MRNA E6/E7 Routine 07/30/2019 9:44 AM EDT from Last 3 Months or Most Recently Relevant to Health Maintenance Results * HIV-1/2 Antigen and Antibodies, Fourth Generation, with Reflexes (08/06/2024 11:35 AM EDT) [facility] HIV AB/AG Nonreactive Nonreactive [facility] Comment:HIV-1 p24 Ag and/or HIV-1/HIV-2 Ab not detected.A test result that is nonreactive does not exclude thepossibility of exposure to or infection with HIV-1 and/orHIV-2. Nonreactive results in this assay for individualswith prior exposure to HIV-1 and/or HIV-2 may be due toantigen and antibody levels that are below the limit ofdetection of this assay.The Ante Up HIV Ag/Ab Combo assay result andsupplemental assay results should be interpreted inconjunction with the patient's clinical presentation,history and other laboratory results. If the results areinconsistent with clinical evidence, additional testing issuggested to confirm the result. Blood Venous blood specimen / Unknown 08/06/2024 11:35 AM EDT 08/06/2024 1:16 PM EDT [facility] TMD TEACHER LAB BLOOD ORDERABLES Final Re sult Performing Organization Address City/[facility]/ZIP Co de Phone Number [facility] [address] [place] [address] [phone] * (ABNORMAL) Lipid Panel, Standard (08/06/2024 11:35 AM EDT) Triglycerides 80 <150 mg/dL [facility] Comment:Desirable Triglyceri de: less than 150 mg/dLBorderline High Triglyceride 150-199 mg/dLHigh Triglyceride: 200-499 mg/dLVery High Triglyceride: greater than or equal to 5OO mg/dL Cholesterol 231(H) <200 mg/dL [facility] Comment:Desirable Cholestero l: less than 200 mg/dLBorderline High Cholesterol: 200-239 mg/dLHigh Cholesterol: greater than 239 mg/dL LDL Cholesterol Calculated 130(H) <100 mg/dL [facility] Comment:Desirable LDL: less than 100 mg/dLNear Optimal/Above Optimal LDL: 110- 129 mg/dLBorderline High LDL: 130-159 mg/dLHigh LDL: 160-189 mg/dLVery High LDL: greater than or equal to 190 mg/dL HDL Cholesterol 85 >40 mg/dL [facility] Comment:Desirable HDL: great er than 40 mg/dL Note: This HDL assay may give artificially low results in patients with liver disease. Blood Venous blood specimen / Unknown 08/06/2024 11:35 AM EDT 08/06/2024 1:16 PM EDT [facility] TMD TEACHER LAB BLOOD ORDERABLES Final Re sult [facility] [address] [place] [address] [phone] * Cologuard?? colon cancer screening (03/12/2024 8:00 PM EDT) Cologuard Result Negative Negative 03/19/20 1:18 AM EDT [employer] (CLIA #:[id number]) Comment: NEGATIVE TEST RESULT. A negative Cologuard result indicates a low likelihood that a colorectal cancer (CRC) or advanced adenoma (adenomatous polyps with more advanced pre-malignant features) ??is present. The chance that a person with a negative Cologuard test has a colorectal cancer is less than 1 in 1500 (negative predictive value >99.9%) or has an ??advanced adenoma is less than ??5.3% (negative predictive value 94.7%). These data are based on a prospective cross-sectional study of 10,000 individuals at average risk for colorectal cancer who were screened with both Cologuard and colonoscopy. (Anthony Reagan et al, N Engl J Med 2014;370(14):1286- 1297) The normal value (reference range) for this assay is negative. COLOGUARD RE-SCREENING RECOMMENDATION: Periodic colorectal cancer screening is an important part of preventive healthcare for asymptomatic individuals at average risk for colorectal cancer. ??Following a negative Cologuard result, the [place] Cancer Society and U.S. Multi-Society Task Force screening guidelines recommend a Cologuard re-screening interval of 3 years. References: [place] Cancer Society Guideline for Colorectal Cancer Screening: https://www.cancer.org/cancer/ekyfr-krmcym-rrwryg/jvwfpterh-anwyunhvz-mwdzazi/ac s-rec ommendations.html.; Anjel GIBSON, Kim MONIQUE, Sepideh FoleyK, Colorectal Cancer Screening: Recommendations for Physicians and Patients from the U.S. Multi-Society Task Force on Colorectal Cancer Screening , Am J Gastroenterology 2017; 112:9735-7473. TEST DESCRIPTION: Composite algorithmic analysis of stool DNA-biomarkers with hemoglobin immunoassay. ?? Quantitative values of individual biomarkers are not reportable and are not associated with individual biomarker result reference ranges. Cologuard is intended for colorectal cancer screening of adults of either sex, 45 years or older, who are at average-risk for colorectal cancer (CRC). Cologuard has been approved for use by the U.S. FDA. The performance of Cologuard was established in a cross sectional study of average-risk adults aged 50-84. Cologuard performance in patients ages 45 to 49 years was estimated by sub-group analysis of near-age groups. Colonoscopies performed for a positive result may find as the most clinically significant lesion: colorectal cancer [4.0%], advanced adenoma (including sessile serrated polyps greater than or equal to 1cm diameter) [20%] or non- advanced adenoma [31%]; or no colorectal neoplasia [45%]. These estimates are derived from a prospective cross-sectional screening study of 10,000 individuals at average risk for colorectal cancer who were screened with both Cologuard and colonoscopy. (Anthony Reagan et al, N Engl J Med 2014;370(14):0116-4064.) Cologuard may produce a false negative or false positive result (no colorectal cancer or precancerous polyp present at colonoscopy follow up). A negative Cologuard test result does not guarantee the absence of CRC or advanced adenoma (pre-cancer). The current Cologuard screening interval is every 3 years. ([place] Cancer Society and U.S. Multi-Society Task Force). Cologuard performance data in a 10,000 patient pivotal study using colonoscopy as the reference method can be accessed at the following location: www.[employer]tag/results. Additional description of the Cologuard test process, warnings and precautions can be found at www.[employer].com. Stool specimen (specimen) 03/12/2024 8:00 PM EDT 03/14/2024 11:24 AM EDT [facility] MOLECULAR DIAGNOSTICS ORD ERABLES Final Result [employer] (CLIA #:[id number]) [place] [address], * Hepatitis Panel, General (05/09/2023 10:29 AM EDT) Hepatitis A IgM Nonreactive Nonreactive [facility] Comment:IgM antibodies to SOTELO V not detected; does not exclude earlyacute or recovered HAV infection. ~Hepatitis B Surface Antibody REACTIVE Nonreactive [facility] Comment:REACTIVE: > 11.99 mI U/mL Hepatitis B Core Antibody Nonreactive Nonreactive [facility] Hepatitis C Antibody Nonreactive Nonreactive [facility] Comment:Antibodies to HCV no t detected; does not exclude early acuteHCV infection. Hepatitis B Surface Ag Negative Negative [facility] Blood 05/09/2023 10:2 9 AM EDT 05/09/2023 11:27 AM EDT [facility] TMD TEACHER LAB BLOOD ORDERABLES Final Re sult [facility] [address] [place] [phone] * Colonoscopy (07/19/2022 11:49 AM EDT) Colonoscopy Normal Normal Conner Art MD HEALTH MAINTENANCE Final Res ult * Mammography (02/23/2022 11:48 AM EDT) Mammogram Bi rads 1 Neg Anatomical Region Laterality Modality Other Conner Art MD HEALTH MAINTENANCE Final Res ult * HPV mRNA E6/E7 (07/30/2019 9:44 AM EDT) HPV mRNA E6/E7 Not Detected NOT DETECTED [facility] Comment: This test was performed using the APTIMA(R) HPV Assay ([employer] This assay detects E6/E7 viral messenger RNA (mRNA) from 14 high-risk HPV types (16,18,31,33,35,39,45,51, 52,56,58,59,66,68). For additional information please refer to: http://education.[employer].Collaborate.com/faq/KLG093f9 (This link is being provided for informational/ educational purposes only.) The analytical performance characteristics of this assay have been determined by [employer] [place], [place]. The modifications have not been cleared or approved by the FDA. This assay has been validated pursuant to the CLIA regulations and is used for clinical purposes. Test Performed by [address], [facility], [address] [place] [address] Derrick Flynn M.D., Ph.D., Director of Laboratories , [facility] [id number] Please note: ??Effective 07/03/2016, HPV testing will be performed using [employer]'s APTIMA test which targets mRNA. Detecting mRNA instead of DNA, as in older methods, offers significant improvements in specificity. 07/30/2019 9:44 AM EDT Beverley Noble CNM HISTORICAL/NON ORDERABLE LABS Final Result [facility] [address] from Last 3 Months or Most Recently Relevant to Health Maintenance Insurance [facility] Care Teams Salon Manager Relationship Specialty Start Date End Date Theodora Cota FNP [address] [place] [id number] PCP - General Family Medicine 10/18/22
--- OUTSIDE RECORDS SUMMARY | 2024-11-21 13:52 | XMS_ITS | Encounter Summary ---
Author Organization [employer] Address [address] [facility] 7 [place] [address] Care Team Providers Care Pattern Hanger Name Role Phone Bangs [facility] Primary Care Provider [phone] Reason for Visit * Reason Onset Date Comments Nurse Triage 11/03/2024 Encounter Details Date Type Department Care Team ([facility] st Contact Info) Description 11/03/2024 Telephone [facility] [address], [place] [phone] [facility] [address] [place], [place] [phone] Nurse Triage Social History Tobacco Use Types [...] encounter Miscellaneous Notes * Telephone Encounter - Paloma Silvestre MA - 11/04/2024 10:34 AM EST All set, pt scheduled for 12/05/24 @9am pt agreed. * Telephone Encounter - Ainsley Escobar RN - 11/03/2024 8:47 PM EST Noted. * Telephone Encounter - Silvia Sellers RN - 11/03/2024 3:15 PM EST Images from the original note were not included. Call returned to Suzan Pulido to triage below. Reports having episode x 1 last week. Per pt unsure if was symmetrical on both hands. Per pt was driving home. Pt had heat on in car. Pt is under a lot of stress. Per pt still has intermittent cold fingers but no further episodes of white color to skin. Pt has not had to use wrist brace for CTS. Pt offered Sick on site with team provider tomorrow. Unable due to work. No appts with PCP within 2 weeks. Pt advised can seek WIC, Reviewed WIC operating hours and that wait times vary. Also advised to call on to see if any cancellations on teams for same day sick on site. Will forward to PCP to review notes and pictures submitted via my chart. Please advise Red Team Primary Care nurses of any further recommendations for plan of care. Protocol Used: Finger Pain (Adult) Protocol-Based Disposition: See in Office or Video Visit within 2 Weeks Video visit offer not recorded Positive Triage Question: * Finger pain or color changes occurs after exposure to cold and is a recurrent problem * All higher-acuity triage questions were negative Care Advice Discussed: * Reasons To Call Back - Fever occurs - Redness or swelling appears - You become worse Rory Spears routed conversation to [facility] Nurse10 minutes ago (3:04 PM) Suzan Ortiz [facility] Clinical [facility] (supporting FARAZ Ortiz)18 hours ago (8:50 PM) Theodora Last week i had 3 or 4 fingers that were numb and cold after driving home from work. I tried to warm them by running them under the water, but there was no change for some time?..My finger tips were pure white and numb. . I took pictures of them. My daughter was concerned and found something that looked exact like Raynauds. Should I make an appointment to see you? Suzan documented in this encounter Plan of Treatment Upcoming Encounters Date Type Department Care Team (Late st Contact Info) Description 12/05/2024 9:00 AM EST Office Visit [address] [address] Theodora Cota FNP [address] [place] [id number] 12/11/2024 3:00 PM EST Office Visit [address] [address] Kim Amaya MD [address] [place] [address] documented as of this encounter Visit Diagnoses Not on filedocumented in this encounter Additional Health Concerns Assessment Noted Time PHQ-9 Depression Total Score: 0 02/15/20 24 10:17 AM EDT documented as of this encounter Care Teams Pattern Hanger Relationship Specialty Start Date End Date Theodora CotaFARAZ [address] [place] [address] PCP - General Family Medicine 10/18/22 documented as of this encounter
--- OUTSIDE RECORDS SUMMARY | 2024-11-21 13:52 | XMS_ITS | Encounter Summary ---
Author Organization [employer] Address [address] [facility] 7 [place] [address] Care Team Providers Care Sticker Machine Operator Name Role Phone [facility] Primary Care Provider [phone] Reason for Visit * Reason Onset Date Comments Med Refill 11/06/2024 Encounter Details Date Type Department Care Team ([facility] st Contact Info) Description 11/06/2024 Refill [facility] [address] [place], [place] [phone] [facility] [address] [place] [address] Social History Tobacco Use Types Packs/Day Years [...] encounter Miscellaneous Notes * Telephone Encounter - Karmen Keller LPN - 11/06/2024 1:35 PM EST Next appointment 12/05/24. documented in this encounter Plan of Treatment Upcoming Encounters Date Type Department Care Team (Late st Contact Info) Description 12/05/2024 9:00 AM EST Office Visit [facility] MEDICINE [address] [place] [id number] Theodora Cota FNP [address] [place] [address] 12/11/2024 3:00 PM EST Office Visit [facility] MEDICINE [address] [place] [phone] Kim Amaya MD [address] [place] [address] documented as of this encounter Visit Diagnoses Not on filedocumented in this encounter Additional Health Concerns Assessment Noted Time PHQ-9 Depression Total Score: 0 02/15/20 24 10:17 AM EDT documented as of this encounter Care Teams Sticker Machine Operator Relationship Specialty Start Date End Date Theodora Cota FNP [address] [place] [id number] PCP - General Family Medicine 10/18/22 documented as of this encounter
--- OUTSIDE RECORDS SUMMARY | 2024-11-21 13:53 | XMS_ITS | Data Portability ---
Author Organization [facility], [facility] Address [address] [place] [address] Care Team Providers Care Kiln Tender Name Role Phone GHADA SARAVIA Community Cultural Development Officer Assessment Encounter Date Assessment Date Assessment LastModified by Organization Details LastModified Time 05/27/2018 05/27/2018 plantar fasciitis left foot jerskine Not available 05/27/2018 12:27:48 02/19/2019 02/19/2019 plantar fasciitis right foot jerskine Not available 02/19/2019 11:23:39 03/20/2019 03/20/2019 Bursitis right hallux jerskine Not available 03/20/2019 11:10:32 07/24/2019 07/24/2019 plantar fasciitis right foot jerskine Not available 07/24/2019 11:05:06 Plan of Treatment Reminders Order Date Submit Date Provider Last Modified By Organization Details Last Modified Time Details Appointments None recorded. Lab None recorded. Referral None recorded. Procedures None recorded. Surgeries None recorded. Imaging None recorded. Medication Orders fluoxetine 20 mg capsule 2017 018 INTERFACE [id number], [address] [place], [address], 8 14:02:18 Patient TargetsNo targets recorded. Patient Instructions Encounter Date Encounter Id Patient Instructions Last Modified By Organization Details Last Modified Time 05/27/2018 [id number] Patient to retur n in 3 weeks. jerskine Not available 05/27/2018 12:27:48 06/07/2018 [id number] more than 50% of 25 minute visit spent in counseling. egraef Not available 06/12/2018 10:48:08 02/19/2019 [id number] Patient to retur n in 3 weeks. jerskine Not available 02/19/2019 11:22:27 03/20/2019 [id number] Patient to retur n in 3 weeks. jerskine Not available 03/20/2019 11:08:42 07/24/2019 [id number] Patient to retur n in 3 weeks. jerskine Not available 07/24/2019 11:05:06 Reason for Referral None Reported. Results Created Date Observation Date Name Description Value Unit Range Abnormal Flag Note LastModifiedBy Organization Detail LastModifiedTime 11/16/19 24 11/16/2023 XR, foot CLINIC AL HISTOR Y: Bilate ral foot pain. TECHNI QUE: AP, obliqu e, and latera l views of the right and left feet obtain ed. COMPAR FLORA: None. FINDIN GS: RIGHT There is no acute fractu re or disloc ation. There is a first MTP joint bunion deform ity with 1.2 cm of latera l sublux ation. The joint spaces are preser shanna. LEFT There is no acute fractu re or disloc ation. There is a first MTP joint bunion deform ity with 1.0 cm of latera l sublux ation. The joint spaces are preser shanna. There is mild spurri ng along the quality assurance supervisor final ior aspect of the calcan eus. IMPRES EMERY: No acute bone abnorm ality. Bilate ral first MTP joint bunion deform ities. Mild left calcan eal spurri ng. Readin g Physic felisa: Elena Olmstead ms [facility] (Imaging) [address], [place], [address], 11/16/2023 16:17:00 Result Notes None recorded. Problems Name Problem SNOMED Code Status Onset Date Resolution Date Notes Provider Name and Address Organization Details Recorded Time Tobacco user 182282215 Active Ramana Rojas MD [address] [place] [address], [phone] , [facility] 5 15:00:33 Hypothyroidis m 78677026 Active Mamie aparicio, [facility] 5 10:05:54 Megaloblastic anemia due to vitamin B>12< deficiency 19456937 Active Not Available [facility] 3 03:13:15 Problem Notes None recorded. Procedures Surgical History Date Name Laterality Status Provider Name and Address Organization Details Recorded Time 12/28/19 18 Smoking cessation counseling completed Jacqueline Garcia [facility] 12/27/2017 13:55:11 12/28/19 18 Carbon Monoxide Testing completed Jacqueline Garcia [facility] 12/27/2017 13:55:11 12/25/19 18 Smoking cessation counseling completed [facility] 12/24/2017 10:26:58 12/25/19 18 Carbon Monoxide Testing completed [facility] 12/24/2017 10:26:59 11/19/19 18 Smoking cessation counseling completed [facility] 11/19/2017 11:21:26 11/19/19 18 Carbon Monoxide Testing completed [facility] 11/19/2017 11:21:26 11/05/19 18 Smoking cessation counseling completed [facility] 11/05/2017 15:01:15 11/05/19 18 Carbon Monoxide Testing completed [facility] 11/05/2017 15:01:15 08/17/20 17 Smoking cessation counseling completed JORGE [address], [address], [facility] 08/17/2017 16:23:24 08/17/20 17 Carbon Monoxide Testing [facility] [address] [place] [address], [phone], [facility] 08/17/2017 16:23:24 08/17/20 17 Nebulizer Tx completed Audrey Lawson LPN [facility] 08/17/2017 17:32:32 04/11/20 17 Smoking cessation counseling completed Fidelia Hogan MA [facility] 04/11/2017 15:57:21 04/11/20 17 POC Urinalysis Testing completed Fidelia Hogan MA [facility] 04/11/2017 15:53:39 07/28/20 16 Smoking cessation counseling completed Ramana Rojas MD [address] [place] [address], [phone], [facility] 07/28/2016 16:47:19 07/17/20 16 Smoking cessation counseling completed Fidelia Hogan [facility] 07/17/2016 10:53:23 12/23/19 15 Smoking cessation counseling completed Paige Yasir [facility] 12/22/2014 14:15:48 12/23/19 15 COPD Screening completed Ramana Rojas MD [address] [place] [address], [phone], [facility] 12/22/2014 14:42:53 08/21/20 14 Smoking cessation counseling completed Harika Duncan [facility] 08/21/2014 14:55:51 02/03/20 14 Smoking cessation counseling completed Aleisha Snyder [facility] 02/02/2014 16:28:18 08/11/20 13 Smoking cessation counseling completed Aleisha Snyder [facility] 08/11/2013 15:19:28 03/19/20 13 [facility] 14:06:13 01/23/20 13 Smoking cessation counseling completed Salma [facility] 01/22/2013 15:48:21 10/25/19 13 Total Hysterectomy completed Jeannie Hooper NP [address] [place] [address], [phone], [facility] 01/22/2013 16:05:38 Imaging Results Imaging Date Name Status LastModified by Organiz ation Details LastModified Time 11/16/2023 [facility] [address], [place], [address], 11/16/2023 16:17:00 Procedure Notes None recorded. Medical Equipment None Reported. Allergies No known drug allergies Medications Name Sig Start Date Stop Date Status Note LastModified by Organization Details LastModified Time bupropion HCl SR 150 mg tablet,12 hr sustained -release take 1 tablet by mouth once daily 05/09 completed [facility] 12/22/14 Not Available Not Available Not Available nicotine 14 mg/24 hr daily transderm al patch APPLY 1 PATCH TO SKIN EVERY DAY IN THE MORNING AND REMOVE AT BEDTIME 2018 active Not Available Not Available Not Avai lable azithromy tanisha 250 mg tablet TAKE 2 TABLETS (500 MG) BY ORAL ROUTE ONCE DAILY FOR 1 DAY THEN 1 TABLET (250 MG) BY ORAL ROUTE ONCE DAILY FOR 4 DAYS 11/05 completed Not Available Not Available Not Available nicotine (polacril ex) 2 mg gum CHEW 1 PIECE OF GUM EVERY 2 HOURS FOR 15 DAYS 06/07 completed Not Available Not Available Not Available metoprolo l succinate ER 50 mg tablet,ex tended release 24 hr TAKE 1 TABLET BY MOUTH EVERY DAY 2018 active Not Available Not Available Not Avai lable Nicoderm CQ 21 mg/24 hr daily transderm al patch Apply 1 patch every day by transder mal route. 07/17 completed pt is not smoking she is using a vaporizo r Not Available Not Available Not Available prednison e 20 mg tablet one tablet three times a day for four days then one tablet twice a day for four days then one tablet daily for four days 04/11 completed Not Available Not Available Not Available meloxicam 7.5 mg tablet take 1 tablet by mouth every twelve hours as needed active Not Available Not Available No t Available bupropion HCl 100 mg tablet TAKE 1 TABLET BY MOUTH TWICE DAILY 2018 active Not Available Not Available Not Avai lable nicotine (polacril ex) 4 mg gum CHEW 1 PIECE(S) OF GUM EVERY 2 HOURS BY ORAL ROUTE FOR 30 DAYS. 2018 active Not Available Not Available Not Avai lable levothyro xine 50 mcg tablet Take 1 tablet every day by oral route in the morning for 30 days. 2012 active Not Available Not Available Not Avai lable bupropion HCl 75 mg tablet TAKE 1 TABLET BY MOUTH TWICE A DAY 11/19 completed Not Available Not Available Not Available fluoxetin e 10 mg capsule TAKE ONE CAPSULE BY MOUTH EVERY DAY 06/07 completed Not Available Not Available Not Available mupirocin 2 % topical ointment APPLY A SMALL AMOUNT TO THE AFFECTED AREA BY TOPICAL ROUTE 3 TIMES PER DAY 2017 active Not Available Not Available Not Avai lable fluoxetin e 20 mg capsule TAKE 1 CAPSULE BY MOUTH EVERY DAY active Not Available Not Available No t Available clotrimaz ole 1 % topical cream APPLY TO THE AFFECTED AND SURROUND ING AREAS OF SKIN BY TOPICAL ROUTE 2 TIMES PER DAY IN THE MORNING AND EVENING 2016 active Not Available Not Available Not Avai lable Ambien 10 mg tablet Take 1 tablet every day by oral route at bedtime for 30 days. 2013 active PRN Not Available Not Available Not Avai lable naproxen 500 mg tablet TAKE 1 TABLET(S ) TWICE A DAY BY ORAL ROUTE. 06/07 completed prn Not Available Not Available Not Available Bactrim DS 800 mg-160 mg tablet Take 1 tablet every 12 hours by oral route for 7 days. 08/17 completed 08/17/17 -pt no longer taking.s g Not Available Not Available Not Available bupropion HCl XL 300 mg 24 hr tablet, extended release Take 1 tablet every day by oral route for 1 day. 11/19 completed Not Available Not Available Not Available Wellbutri n XL 150 mg 24 hr tablet, extended release Take 1 tablet every day by oral route. active FURNACE KEEPER Not Available Not Available No t Available Spiriva with HandiHale r 18 mcg and inhalatio n capsules Inhale 1 capsule every day by inhalati on route for 90 days. 04/11 completed Not Available Not Available Not Available Cymbalta 60 mg capsule,d elayed release Take 1 capsule every day by oral route. active FURNACE KEEPER Not Available Not Available No t Available estradiol active estrogen Not Available Not A vailable Not Available ProAir HFA 90 mcg/actua tion aerosol inhaler INHALE 2 PUFFS 4 TIMES A DAY NEEDED FOR WHEEZING 2016 active PRN Not Available Not Available Not Avai lable Flovent Diskus 100 mcg/actua tion powder for inhalatio n INHALE 1 PUFF BY MOUTH TWICE A DAY 2017 active PRN Not Available Not Available Not Avai lable Suboxone 8 mg-[address] l film Place 1 film every day by sublingu al route. active 12 mg daily Not Available Not Available Not Available Vitamin D2 active Not Available Not Available Not Available Vitals Date Recorded Body height Provider Name an d Address Organization Details Last Updated DateTime 05/27/2018 160.02 cm Caroline Smith MA [facility] 05/27/2018 12:10:30 Date Recorded Heart rate Provider Name an d Address Organization Details Last Updated DateTime 05/27/2018 68 /min Caroline SmithJORDYN [facility] 05/27/2018 12:10:40 Date Recorded Body height Provider Name an d Address Organization Details Last Updated DateTime 06/07/2018 160.02 cm Lesly Will MA [facility] 06/07/2018 13:45:20 Date Recorded Body mass index (BMI) Body weight Provider Name and Address Organization Details Last Updated DateTime 06/07/2018 31.7 kg/m2 55326.73 g Lesly Will MA [facility] 06/07/2018 13:45:28 Date Recorded Body height Provider Name an d Address Organization Details Last Updated DateTime 02/19/2019 160.02 cm Brenda Gallego MA [facility] 02/19/2019 10:54:06 Date Recorded Body height Provider Name an d Address Organization Details Last Updated DateTime 03/20/2019 160.02 cm Brenda Gallego MA [facility] 03/20/2019 10:48:47 Date Recorded Body height Provider Name an d Address Organization Details Last Updated DateTime 07/24/2019 160.02 cm Brenda Gallego MA [facility] 07/24/2019 09:54:06 Date Recorded Systolic blood pressure Diastolic blood pressure Provider Name and Address Organization Details Last Updated DateTime 05/27/2018 120 mm[Hg] 64 mm[Hg] Caroline Smith JORDYN [facility] 05/27/2018 12:10:38 Date Recorded Systolic blood pressure Diastolic blood pressure Provider Name and Address Organization Details Last Updated DateTime 06/07/2018 142 mm[Hg] 76 mm[Hg] Lesly KervinpakoJORDYN [facility] 06/07/2018 13:50:45 Date Recorded Systolic blood pressure Diastolic blood pressure Provider Name and Address Organization Details Last Updated DateTime 02/19/2019 110 mm[Hg] 70 mm[Hg] Brenda Gallego MA [facility] 02/19/2019 10:55:21 Date Recorded Systolic blood pressure Diastolic blood pressure Provider Name and Address Organization Details Last Updated DateTime 03/20/2019 130 mm[Hg] 80 mm[Hg] Brenda Gallego MA [facility] 03/20/2019 10:49:59 Date Recorded Systolic blood pressure Diastolic blood pressure Provider Name and Address Organization Details Last Updated DateTime 07/24/2019 130 mm[Hg] 80 mm[Hg] Brenda Gallego MA [facility] 07/24/2019 09:55:28 Social History Question Answer Notes LastModified by Organizat ion Details LastModified Time Tobacco Smoking Status Former Smoker 06/07/18- hasn't [facility] in over a [facility] 14:54:18 What Is Your Level Of Alcohol Consumption? None [email or web address] Information not available 06/02/2013 Do You Wear A Helmet When Biking? Yes [email or web address] Information not available 04/11/2017 What Is Your Level Of Caffeine Consumption? Heavy 4 Cups A Day [email or web address] Information not available 11/05/2017 How Much Tobacco Do You Chew? None Information not available 01/22/2013 What Type Of Diet Are You Following? REGULAR [email or web address] Information not available 11/05/2017 Which Illicit Or Recreational Drugs Have You Used? 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 No [email or web address] Information not available 11/05/2017 Live Alone Or With Others? With Others [email or web address] Information not available 08/21/2014 Does The Patient Have Difficulty Speaking American? No Information not available 07/17/2016 Does The Patient Have Difficulty Reading American? No Information not available 07/17/2016 Patient Has Health Care Proxy Signed And In Chart No [email or web address] Information not available 10/21/2018 Marital Status [email or web address] Informati on not available 11/05/2017 Mosquito Repellent Used Routinely Yes [email or web address] Information not available 04/11/2017 What Was The Date Of Your Most Recent Tobacco Screening? 02/19/2019 Information not available 05/14/2019 How Many Children Do You Have? 3 Girls 13 And 14, Son 20 Information not available 01/22/2013 Seat Belts Used Routinely Yes [email or web address] Information not available 04/11/2017 Smoke Alarm In Home Yes Information not available 04/11/2017 General Stress Level High [email or web address] Information not available 01/22/2013 Do You Use Sunscreen Routinely? Yes [email or web address] Information not available 04/11/2017 Sex: Unknown Functional Status None recorded. Mental Status None recorded. Family History Nothing Reported. Medical History Condition Response Myocardial Infarction Y Depression Y Gynecological History Statement/Question Response Hysterectomy Y Obstetrics History GPAL:G 0 P 0 0 0 0 Immunizations Vaccine Type Date Status Note Provider Nam e and Address Organization Details Recorded Time pneumococcal polysaccharide PPV23 3 completed Not Available [facility] 11/08/2019 02:14:36 influenza, seasonal, intradermal, preservative free 3 completed Not Available [facility] 11/08/2019 02:19:02 Tdap 3 completed Not Available [facility] 11/08/2019 02:16:07 Influenza, split virus, quadrivalent, PF 6 completed Not Available [facility] 11/08/2019 02:20:44 Influenza, split virus, quadrivalent, PF 8 completed Not Available [facility] 11/08/2019 02:22:29 Past Encounters Encounter ID Performer Location Encounter Start Date Encounter Closed Date Diagnosis/Indication Diagnosis SNOMED-CT Code Diagnosis ICD10 Code Diagnosis Note [id number] Jeannie Hooper NP , [facility], OFFICE [address] [place] [address] 01/22/2013 15:29:01 01/22/2013 16:19:27 [id number] JORDYN Ulloa, [facility], OFFICE [address] [place] [address] 03/19/2013 13:52:32 03/20/2013 07:54:42 [id number] Sabi Lopez Physical Therapy, [facility] [address] [facility] [place] [address] 05/07/2013 14:51:12 05/08/2013 09:17:33 [id number] Sabi Lopez Physical [facility], [address] [place] [address] 05/15/2013 14:47:42 05/16/2013 09:47:58 [id number] Sabi Lopez Physical [facility], [address] [place] [address] 05/22/2013 15:20:59 05/23/2013 08:48:23 [id number] JORDYN Finnegan, [facility], OFFICE [address] [place] [address] 06/02/2013 11:14:40 06/02/2013 12:03:17 Hypothyroidism 82009926 TSH 1.83. Will c/w same dose of levothyrox ine at 50 mcg qd. Fatigue 90120494 EKG was nml. Pt reassured. Advised that it may be cymbalta that is contributi ng to fatigue. Increased dose to 90 mg in past 4 months. Encouarged to discuss with her psychophar macologist . [id number] Sabi Lopez [facility], [address] [place] [address] 07/03/2013 08:57:16 07/04/2013 09:16:33 [id number] Zulema JERONIMO, [facility], OFFICE [address] [place] [address] 08/11/2013 14:53:57 08/11/2013 16:24:07 Adult health examination 216326429 see Risk Assessment and Lifestyle Change Counseling section above Counseling 628067879 Tobacco user 485465531 Administra tion of diphtheria, pertussis, and tetanus vaccine 921533418 Administra tion of pneumococcal vaccine 52582377 Influenza vaccine needed 0904364033 106 Screening mammography 47708475 Hypothyroidism 00798052 i find now out of range TSH opt reports h/o blood test for thyroid abnormalit y at [facility]. Fatigue 90101982 discuss with her psychophar macologist . Anxiety 49945496 seen Shweta Andrade at [facility] in [facility]. 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 Mucinex or robitussin for cough and congestion . she is showing signs of improvemen t already. If feer returns or symptoms persist or worsen, she should follow upv Tobacco user 315759535 S he is on wellbutrin . Will add patch. She will need to step down to 7mg patch when ready and will call to request when needed. 5 mins spent on smoking cessation and proper med use [id number] Bessy Desir , [facility], OFFICE [address] [place] [address] 04/06/2014 09:12:19 04/06/2014 09:55:30 Screening mammography 69197413 Paresthesia 34502175 agr eed to continue naprosen as is helpful for nocturnal acral parasthesi as possible causes reviewed fears of neck compressio n, clot, neurologic disease addresses all unlikely as symtoms exclusivel y nocturnal and isolated consider HS gabapentin if worsens [id number] Harika Duncan MA , [facility], OFFICE [address] [place] [address] 04/21/2014 14:28:25 04/21/2014 15:22:56 Cough 38896338 viral with CB symptoms and left ear suspect for serous Otitis media [id number] Caroline Smith MA Podiatry, [facility] [address] [place] [address] 08/21/2014 10:32:09 08/21/2014 15:13:11 Metatarsalgia 52656850 Tenosynovitis of foot 174605403 Plantar fasciitis 580699689 Congenital valgus deformity of foot 57116024 [id number] Mary Kwok MA , [facility], OFFICE [address] [place] [address] 08/21/2014 14:29:13 08/21/2014 15:31:04 Tobacco user 635425374 Insomnia 943676261 sleep latency 2 years, intermitte nt sleep thereafter . seen by 3 MD's for this frustrated in care of children, has grown irritable, somnolent thru day drinking a lot of coffee to compensate needs sleep study [id number] Ghada Saravia DPM Podiatry, [facility] [address] [place] [address] 10/26/2014 14:18:31 10/26/2014 14:39:58 Plantar fasciitis 364701834 [id number] Paige Aviles RN , [facility], OFFICE [address] [place] [address] 12/22/2014 13:52:56 12/25/2014 14:29:18 Hypothyroidism 19687729 i find no out of range TSH perhaps transient viral thyroiditi s opt reports h/o blood test for thyroid abnormalit y at [facility]. plan annual TSH Tobacco user 167299939 f illed zyban and patch. I encouraged her to try different flavors of the distastefu l e cig her son gave her. family doesn't like smell of her cigs, is positive factor for her She is on wellbutrin . Will add patch. She will need to step down to 7mg patch when ready and will call to request when needed. 5 mins spent on smoking cessation and proper med use Insomnia 950253603 pt reschedule d await sleep study. ambien prn sleep latency 2 years, intermitte nt sleep thereafter . seen by 3 MD's for this frustrated in care of children, has grown irritable, somnolent thru day drinking a lot of coffee to compensate needs sleep study Paresthesia 55155798 agr eed to continue naprosen as is helpful for nocturnal acral parasthesi as possible causes reviewed fears of neck compressio n, clot, neurologic disease addresses all unlikely as symtoms exclusivel y nocturnal and isolated consider HS gabapentin if worsens Adult heal th examination 098799949 see Risk Assessment and Lifestyle Change Counseling section above Counseling 147427209 Anxiety 77946911 seen Shweta Andrade at [facility] in [facility]. Cyst of ovary 84820963 e lective for cysts on ERT fo rthis in past recomend finding new OB given Number [facility], [address] Opioid dependence 53662000 states doing well on suboxone with [employer] [id number] Ramana Rojas MD , [facility], OFFICE [address] [place] [address] 01/19/2016 09:26:14 01/19/2016 10:25:54 Intermittent palpitations 748658952 R00.2 feels like my heart is coming out of my chest sabas in bed at [facility] no shortness of breath pleurisy cough. During an event she took her pulse and found it to be normal. She showed me how she takes her pulse properly. A/Benign palpitatio ns c/w anxiety and admits is likely so as she is under greater presure than normal caring for kids and elderly great aunt. stressors discussed, options discussed, agreed that she will try to cope;that her palps are benign is an added reassurran ce. Foot pain 55608426 M79.6 73 Tobacco de pendence syndrome 18729014 F17.256 [id number] Ghada Saravia DPM Podiatry, [address] [address] 02/04/2016 10:15:20 02/04/2016 11:02:58 Plantar fasciitis 940756531 M72.2 Pronation of foot 919670 03 M21.6X9 [id number] Max[facility] Re[facility], [address] [address] 02/25/2016 11:16:52 03/09/2016 16:55:20 Plantar fasciitis 283796091 M72.2 Pronation of foot 717291 03 M21.6X9 [id number] Ghada Saravia DPM Podiatry, [address] [address] 07/10/2016 10:41:56 07/10/2016 12:00:09 Plantar fasciitis 709588756 M72.2 Pronation of foot 304953 03 M21.6X9 Tinea pedis 1526770 B35. 3 [id number] Ramana Rojas MD , [facility], OFFICE [address] [place] [address] 07/17/2016 10:51:27 07/17/2016 11:48:11 Adult health examination 514110627 Z00.00 see Risk Assessment and Lifestyle Change Counseling section above Counseling 047560891 Z71 .9 Cigarette smoker 7447997 7 F17.210 Active or passive immunization 329283558 Z23 Screening mammography 24 375767 Z12.31 ordered 06/2016 Intermitte nt palpitations 444176585 R00.2 feels like my heart is coming out of my chest sabas in bed at nog no shortness of breath pleurisy cough. During an event she took her pulse and found it to be normal. She showed me how she takes her pulse properly. A/Benign palpitatio ns c/w anxiety and admits is likely so as she is under greater presure than normal caring for kids and elderly great aunt. stressors discussed, options discussed, agreed that she will try to cope;that her palps are benign is an added reassurran ce. Foot pain 81243672 M79.6 73 plantar fasciitis injected [place] Tobacco de pendence syndrome 08484536 F17.290 using vaporizer. 06/2016. filled zyban and patch. I encouraged her to try different flavors of the distastefu l e cig her son gave her. family doesn't like smell of her cigs, is positive factor for her She is on wellbutrin . Will add patch. She will need to step down to 7mg patch when ready and will call to request when needed. 5 mins spent on smoking cessation and proper med use Hypothyroidism 10905248 E03.9 per cards (Trisha) TSH was 8.6 on 02/18/16 at [facility]. . Hypothyroi dism - i find no out of range TSH perhaps transient viral thyroiditi s opt reports h/o blood test for thyroid abnormalit y at [facility] ER. plan annual TSH every december Insomnia 434824240 G47.0 0 1025 seen sleep med for daytime hypersomno lence since opiatet detox, guven nuvigil , cont suboxone await sleep study. ambien prn sleep latency 2 years, intermitte nt sleep thereafter . seen by 3 MD's for this frustrated in care of children, has grown irritable, somnolent thru day drinking a lot of coffee to compensate needs sleep study Opioid dependence 625879 00 F11.20 states doing well on suboxone with [facility] detox[facility] in past Pins and needles 7927362 9 R20.2 Paresthesi a - agreed to continue naprosen as is helpful for nocturnal acral parasthesi as possible causes reviewed fears of neck compressio n, clot, neurologic disease addresses all unlikely as symtoms exclusivel y nocturnal and isolated consider HS gabapentin if worsens 782.0: Disturbanc e of skin sensation Anxiety 59789739 F41.9 no longer seen seen Ghada Andrade at [facility] in [facility].stabl e. Cyst of ovary 48760560 N 83.20 s/p ROBIN BSO age 42.Dr Beltran at [facility] onc. elective for cysts on ERT fo rthis in past recomend finding new OB given [facility], [address] Recurrent major depression 03728949 F33.9 no longer follows Ghada Andrade CSOpaxil and wellbutrin herestable History of cardiac arrest 287999975 Z86.74 narcotic OD 2006 Benign ess ential hypertension 5546521 I10 per cardiology Trisha 170+.on metop for this as well as symptomati c pVS on holterhe ordered stress test...nev er done 2016 Multiple p remature ventricular complexes 515602797 I49.3 on holterare symptomati ccontinue metoprolol ER %) follow Dr Patel ordered stress 2016 [id number] Ramana Rojas MD , [facility], OFFICE [address] [place] [address] 07/28/2016 16:14:36 07/28/2016 16:58:34 Chronic obstructive pulmonary disease 12899735 J44.9 one PPD for 30 yearssurel y copd with exac, I and E wheezespre dshe quit yesterday Nicotine dependence 5629 4008 F17.200 has been smoking daily ppd despite chronic wheeze and siobapprop riate meds discussed and prescibed. she quit yesterday, cessation encouraged [id number] Ghada Saravia DPM Podiatry, [facility] [address] [place] [address] 12/04/2016 12:01:27 12/04/2016 12:19:23 Plantar fasciitis 425687552 M72.2 Pronation of foot 490295 03 M21.6X9 [id number] Ghada Saravia DPM Podiatry, [address] [address] 12/25/2016 11:26:53 12/25/2016 12:14:15 Plantar fasciitis 011047515 M72.2 [id number] Magda Kaur NP , [facility], OFFICE [address] [place] [address] 04/11/2017 15:53:00 04/11/2017 16:15:54 Urinary tract infectious disease 61430550 N39.0 Patient instructed to push fluids, to follow up for persistent or worsening symptoms or fever or back pain. Cigarette smoker 2026299 7 F17.210 Tobacco user 503372301 Z 72.0 [id number] Ghada Saravia DPM Podiatry, [address] [address] 07/06/2017 11:15:22 07/06/2017 12:15:33 Plantar fasciitis 191811077 M72.2 Tinea pedis 3678435 B35. 3 [id number] Ghada Saravia DPM Podiatry, [address] [address] 07/16/2017 11:47:58 07/17/2017 16:08:18 Plantar fasciitis 365524717 M72.2 [id number] KARLA Wiley, [facility], [address]ICE [address] [place] [address] 08/17/2017 16:02:08 08/20/2017 09:27:06 Tobacco user 230421410 Z72.0 motivated to quit smoking, encouragem ent provided. Cigarette smoker 9653049 7 F17.210 Chronic ob structive pulmonary disease 03435196 J44.9 consistent with exacerbati on, increased sputum production and shortness of brethno fever,resp onded well to duo nebulizer. [id number] KARLA Wiley, [facility], [address] [place] [address] 11/05/2017 14:38:22 11/05/2017 15:53:00 Adult health examination 691018050 Z00.00 see Risk Assessment and Lifestyle Change Counseling section above, post hysterecto my Counseling 488623255 Z71 .9 Active or passive immunization 472917621 Z23 Cigarette smoker 4218659 7 F17.210 Tobacco user 881109005 Z 72.0 motivated to quit smoking, encouragem ent provided. Hypothyroidism 06134142 E03.9 trend thyroid. Plantar fasciitis 242059 003 M72.2 chronic issue, managed by podiatry. Opioid dependence 293651 00 F11.20 managed by [facility].cons idering vivitrol Screening mammography 24 290472 Z12.31 History of anemia vitamin B12 deficient 572659442 Z86.2 check labs Recurrent major depression 11858160 F33.9 stable on current regimen, buproprion and fluoxetine . Benign ess ential hypertension 3046231 I10 managed with metoprolol by cardiology at [facility]. Multiple p remature ventricular complexes 863704715 I49.3 also managed by cardiology at [facility] History of cardiac arrest 211285660 Z86.74 2006 in setting of opiate overdose Memory impairment 329555 006 R41.3 scheduled follow up to address more comprehens ively. [id number] FARAZ Wiley-BRISA , [facility], [address] [place] [address] 11/19/2017 11:14:00 11/19/2017 11:49:53 Cigarette smoker 56849615 F17.210 Tobacco user 968660282 Z 72.0 motivated to quit smoking, encouragem ent provided. Memory impairment 517981 006 R41.3 referral to neurology, lower suspicion for underlying pathology. Hypothyroidism 99577161 E03.9 trend thyroid. check tpo Depressive disorder 3504 9006 F32.9 incrase buproprion from 75 mg to 100 mgmonitor for increased anxiety. Actinic keratosis 422529 007 L57.0 left chest. [id number] KARLA Wiley , [facility], [address] [place] [address] 12/24/2017 10:25:39 12/24/2017 10:53:03 Cigarette smoker 44057467 F17.210 Tobacco user 562648835 Z 72.0 motivated to quit smoking, encouragem ent provided. Depressive disorder 3960 9006 F32.9 tolerating increased bupropionw ill reduce fluoxetine , pt cannot recall this med working and may be contributi ng to fatiguefol low up in 4 -6 weeks. Bilateral carpal tunnel syndrome 7293252171 9218182 G56.03 nocturnal bracing. [id number] Karmen Iglesias MD , [facility], [address] [place] [address] 12/27/2017 13:40:10 01/02/2018 11:50:52 Cigarette smoker 38084854 F17.210 creating a planlookin g for motivation working w PCPcounsel ing today Tobacco user 356311360 Z 72.0 Impetigo 89824298 L01.00 small patch on her chin below lipno lip involvemen twill txinstr to call if not improving or getting worse [id number] Ghada Saravia DPM Podiatry, [facility] [address] [place] [address] 01/24/2018 12:04:14 01/24/2018 12:48:19 Plantar fasciitis 162800859 M72.2 [id number] Ghada Saravia DPM Podiatry, [address] [address] 04/15/2018 10:33:39 04/15/2018 11:20:39 Plantar fasciitis 234741146 M72.2 [id number] Ghada Saravia DPM Podiatry, [address] [address] 05/27/2018 11:38:32 05/27/2018 12:29:47 Plantar fasciitis 587323260 M72.2 [id number] Paige Soto, WOOL SHEARING SUPERVISOR-BRISA , [facility], [address] [place] [address] 06/07/2018 13:40:24 06/07/2018 14:08:49 Depressive disorder 94821033 F32.9 tolerating increased bupropionn o improvemen t in fatigue with lower dose of fluoxetine and possibly worse mood.pt is establishi ng with therapist and psycopharm acologist, which I recommend as pt may benefit from intensive med management [id number] Ghada Saravia DPM Podiatry, [facility] [address] [place] [address] 02/19/2019 10:48:39 02/19/2019 11:09:37 Plantar fasciitis 704891015 M72.2 [id number] Ghada Saravia DPM Podiatry, [facility] [address] [place] [address] 03/20/2019 10:43:18 03/20/2019 11:06:12 Bursitis of foot region 791393252 M77.51 [id number] Ghada Saravia DPM Podiatry, [facility] [address] [place] [address] 07/24/2019 09:49:55 07/24/2019 10:15:15 Plantar fasciitis 279958803 M72.2 Health Concerns Section Related Observation LastModified by Organization Detai ls LastModified Time None Recorded Concern Status LastModified by Organization Details LastModified Time None Recorded Advance Directives Directive None Recorded Payers Encounter Date Sequence Insurance Name Policy Number Policy Mills Covered Member ID Mills Member ID Guarantor Name 05/27/2018 1 [place] 2023 - [facility] (MEDICAID) Suzan L Pulido [id number] Suzan Diego Pulido 06/07/2018 1 [place] - [facility] (MEDICAID) Suzan L Pulido [id number] Suzan Diego Puildo 02/19/2019 1 [facility] (O) [id number] Suzan L Pulido [id number] Suzan Diego Pulido 03/20/2019 1 [facility] (HMO) [id number] Suzan L Pulido [id number] Suzan Diego Pulido 07/24/2019 1 [facility] (O) [id number] Suzan L Pulido [id number] Suzan Diego Pulido Notes Date Note Type Note Provider Name and Address Organization Details Recorded Time 05/27/2018 text/html Patient presents to the office complaining of continuing pain when walking left heel. Patient states symptoms have been worsening over the past few weeks. Ghada Saravia DPM [address] [place] [address], [address], [facility] 05/27/2018 12:28:53 06/07/2018 text/html since last visit , pt is now using tobacco regarding health- pt states health is ok notes something has changed re bladder,unable to hold urine like used jyace waiting urgencyno bood in urine pt states I am highly depressed no trigger,nothing happened,just notes a lot of stress working two jobspt notes goes home and goes to sleep. feels like wellbutrin is helping,also on 10 mg of fluoxetinehas not noted any improvement re energy since lowering medication denies SI/HI Paige Soto, [employer] SHEARING SUPERVISOR-BC [address] [place], [address], [facility] 06/12/2018 10:48:13 02/19/2019 text/html Patient presents to the office complaining of return of pain from plantar fasciitis in both of her feet. Patient states symptoms have been worsening over the past few months creating difficulty when walking. Ghada Saravia DPM [address] [place], [address], [facility] 02/19/2019 11:25:30 03/20/2019 text/html Patient presents to the office complaining of acute pain with red discoloration on the big toe of her right foot. Patient states symptoms seem to happen suddenly and kept her awake last night. Patient has not noticed any open wound or drainage. Ghada Saravia DPM [address] [place], [address], [facility] 03/20/2019 11:11:08 07/24/2019 text/html Patient returns to the office complaining of recurrence of heel pain in both of her feet. Patient states symptoms have been worsening over the past several weeks creating difficulty when walking. Ghada Saravia DPM [address] [place], [address], [facility] 07/24/2019 11:06:25 OBGyn Episode No OBEpisode recorded.
--- OUTSIDE RECORDS SUMMARY | 2024-11-21 13:53 | XMS_ITS | Encounter Summary ---
Author Organization [employer] Address [address] [place] [address] [address] [place] [address] Care Team Providers Care Bomb Loader Name Role Phone [facility] Primary Care Provider [phone] Encounter Details Date Type Department Care Team (Late Contact Info) Description 04/25/2023 Orders Only [facility] MEDICINE [address] [place], [place] [phone] [facility] [address] [place] [address] Screening examination for pulmonary tuberculosis (Primary Dx) Social History Tobacco Use Types Packs/Day Years Used Date Smoking Tobacco: Never Smokeless Tobacco: Never Alcohol Use Standard Drinks/Week Comments Never 0 (1 standard drink = 0.6 oz pur e alcohol) Depression Answer Date Recorded Patient Health Questionnaire-9 Score 0 04/25/2023 Depression Answer Date Recorded Patient Health Questionnaire-2 Score 0 04/25/2023 Comments Unknown Sex and Gender Information Value Date Recorded Sex Assigned at Female 08/21/2022 10:34 AM EDT Legal Sex Female 10:34 AM EDT Gender Identity Female 08/21/2022 10:34 AM EDT Sexual Orientation Straight 08/21/2022 10 :34 AM EDT COVID-19 Exposure Response Date Recorded In the last 10 days, have yo u been in contact with someone who was confirmed or suspected to have Coronavirus/COVID-19? No / Unsure 04/25/2023 10:02 AM EDT documented as of this encounter Plan of Treatment Upcoming Encounters Date Type Department Care Team (Late st Contact Info) Description 12/05/2024 9:00 AM EST Office Visit [facility] [place] [address] Theodora CotaFARAZ [address] [place] [address] 12/11/2024 3:[address] EST [address] [facility] [address] Kim Amaya MD [address] [place] [address] Scheduled Orders Name Type Priority Associated Diagnoses Orde r Schedule QuantiFERON??-TB Gold Plus, 1 Tube Lab Routine Screening examination for pulmonary tuberculosis Expected: 04/25/2023 (Approximate), Expires: 04/25/2024 documented as of this encounter Visit Diagnoses Diagnosis Screening examination for pulmonary tuberculosis- Primary documented in this encounter Additional Health Concerns Assessment Noted Time PHQ-9 Depression Total Score: 0 04/25/20 23 10:12 AM EDT documented as of this encounter Care Teams Bomb Loader Relationship Specialty Start Date End Date Theod[place] [address] PCP - General Family Medicine 10/18/22 documented as of this encounter
--- OUTSIDE RECORDS SUMMARY | 2024-11-21 13:53 | XMS_ITS | Encounter Summary ---
Author Organization [employer] Address [address] [facility] 7t [place] [address] Care Team Providers Care Trauma Director Name Role Phone Theodora Cota PIG MACHINE CRANE OPERATOR Primary Care Provider [phone] Reason for Visit * Reason Comments Med Change Request Encounter Details Date Type Department Care Team ([facility] st Contact Info) Description 07/23/2024 Refill [facility] MEDICINE [address] [place], [place] [phone] Kim Amaya MD [address] [place] [address] Social History Tobacco Use Types Packs/Day Years [...] Description 12/05/2024 9:00 AM EST Office Visit [facility] MEDICINE [address] [place] [address] Theodora Cota FNP 230 [place] [address] 12/11/2024 3:00 PM EST Office Visit [facility] MEDICINE [address] [place] [address] Kim Amaya MD [address] [place] [address] documented as of this encounter Visit Diagnoses Not on filedocumented in this encounter Additional Health Concerns Assessment Noted Time PHQ-9 Depression Total Score: 0 02/15/20 24 10:17 AM EDT documented as of this encounter Care Teams Trauma Director Relationship Specialty Start Date End Date Theodora Cota FNP [address] [place] [address] PCP - General Family Medicine 10/18/22 documented as of this encounter
--- OUTSIDE RECORDS SUMMARY | 2024-11-21 13:53 | XMS_ITS | Encounter Summary ---
Author Organization [employer] Address [address] [facility] 7 [place] [address] Care Team Providers Care Chicken Hatchery Helper Name Role Phone Theodora Cota [facility] Primary Care Provider [phone] Reason for Visit * Reason Comments Med Refill Encounter Details Date Type Department Care Team ([facility] st Contact Info) Description 01/03/2024 Refill [facility] MEDICINE 230 [place], [place] [phone] Kim Amaya MD [address] [place] [address] Opioid dependence in remission (CMS/HCC) Social History Tobacco Use Types Packs/Day Years [...] 9:00 AM EST Office Visit [facility] MEDICINE [address] [place] [address] Theodora Cota FNP [address] [place] [address] 12/11/2024 3:00 PM EST Office Visit [facility] MEDICINE [address] [place] [address] Kim Amaya MD [address] [place] [address] documented as of this encounter Visit Diagnoses Diagnosis Opioid dependence in remission ([facility]) Opioid type dependence, in remission documented in this encounter Additional Health Concerns Assessment Noted Time PHQ-9 Depression Total Score: 0 08/10/20 23 10:11 AM EDT documented as of this encounter Care Teams Chicken Hatchery Helper Relationship Specialty Start Date End Date Theodora Cota FNP [address] [place] [address] PCP - General Family Medicine 10/18/22 documented as of this encounter
--- OUTSIDE RECORDS SUMMARY | 2024-11-21 13:53 | XMS_ITS | Encounter Summary ---
Author Organization [employer] Address [address] [facility] 7t [place] [address] Care Team Providers Care Exchange Clerk Name Role Phone Theodora Cota [facility] Primary Care Provider [phone] Reason for Visit * Reason Comments Med Refill Encounter Details Date Type Department Care Team ([facility] st Contact Info) Description 08/20/2023 Refill [facility] MEDICINE 230 [place], [place] [phone] Karmen Farah, [address] [place], [place] [phone] Social History Tobacco Use Types Packs/Day Years [...] Description 12/05/2024 9:00 AM EST Office Visit [facility] [address] [place] [address] Theodora Cota FNP [address] [place] [address] 12/11/2024 3:00 PM EST Office Visit [facility] [address] [place] [address] Kim Amaya MD [address] [place] [address] documented as of this encounter Visit Diagnoses Not on filedocumented in this encounter Additional Health Concerns Assessment Noted Time PHQ-9 Depression Total Score: 0 08/10/20 23 10:11 AM EDT documented as of this encounter Care Teams Exchange Clerk Relationship Specialty Start Date End Date Theodora Cota FNP [address] [place] [address] PCP - General Family Medicine 10/18/22 documented as of this encounter
--- OUTSIDE RECORDS SUMMARY | 2024-11-21 13:53 | XMS_ITS | Encounter Summary ---
Author Organization [employer] Address [address] [place] [address] 7 [place] [address] Care Team Providers Care Rag Collector Name Role Phone [facility] Primary Care Provider [phone] Reason for Visit * Reason Comments Med Refill Encounter Details Date Type Department Care Team (Late st Contact Info) Description 07/19/2023 Refill [facility] MEDICINE 230 [place], [place] [phone] Kim Amaya MD 230 [place], [place] [phone] Uncomplicated opioid dependence (CMS/HCC) Social History Tobacco Use Types Packs/Day [...] Encounters Date Type Department Care Team (Late Contact Info) Description 12/05/2024 9:00 AM EST Office Visit [facility] MEDICINE [address] [place] [address] Theodora Cota [facility] 230 [place] [address] 12/11/2024 3:00 PM EST Office Visit [facility] [place], [place] [phone] Kim Amaya MD 230 [place] [address] documented as of this encounter Visit Diagnoses Diagnosis Uncomplicated opioid dependence (CMS/HCC) documented in this encounter Additional Health Concerns Assessment Noted Time PHQ-9 Depression Total Score: 0 04/25/20 23 10:12 AM EDT documented as of this encounter Care Teams Rag Collector Relationship Specialty Start Date End Date Theodora Cota FNP [address] [facility] [place] [address] PCP - General Family Medicine 10/18/22 documented as of this encounter
[2024-11-21 16:09] LABS: Hematocrit 39.2 % (37.0-47.0); Hemoglobin 13.4 g/dl (12.0-16.0); Mean Corpuscular HGB Conc 34.2 g/dl (31.0-35.0); Mean Corpuscular Hemoglobin 31.5 pg (27.0-33.0); Mean Platelet Volume 9.9 fL (9.4-12.3); Platelet Count 342 X10*3/uL (160-400); Red Blood Count 4.26 X10*6/uL (4.20-5.50); Red Cell Distribution Width 12.7 % (11.0-16.0); White Blood Count 6.8 X10*3/uL (4.8-10.8)
[2024-11-21 16:49] LABS: Erythrocyte Sedimentation Rate 12 MM/HR (0-20)
[2024-11-21 17:34] LABS: C Reactive Protein 0.18 mg/dL (< or = 0.50)
[2024-11-21 17:52] LABS: TSH reflex Free T4 1.81 uIU/mL (0.32-4.0)
[2024-11-28 10:59] LABS: Anti Nuclear Antibody Screen POSITIVE (NEGATIVE)
== END 2024-11-21 13:49 | disposition home or self-care (01) ==
LOC: HO.HMGCLDS 13:48
PROVIDERS: PCP Registered Nurse; Visit Provider Registered Nurse
DX: I73.00 Raynaud's syndrome without gangrene (principal)
CPT/HCPCS: 36415; 84443; 85027; 85652; 86038; 86039; 86140

== ENCOUNTER 2025-06-03 12:13 | Outpatient (REF) | payer OTHER, SELFPAY ==
--- OUTSIDE RECORDS SUMMARY | 2025-06-03 12:54 | XMS_ITS | Encounter Summary ---
Author Organization [employer] Address [address] [facility] 7[address] [place] [address] Care Team Providers Care Runway Model Name Role Phone [facility] Primary Care Provider [phone] Reason for Visit * Reason Comments Med Refill Encounter Details Date Type Department Care Team ([facility] st Contact Info) Description 01/24/2024 Refill [facility] MEDICINE [address] [place], [place] [phone] [facility] 230 [place] [address] Social History Tobacco Use Types Packs/Day Years [...] as of this encounter Plan of Treatment Not on file documented as of this encounter Visit Diagnoses Not on filedocumented in this encounter Additional Health Concerns Assessment Noted Time PHQ-9 Depression Total Score: 0 08/10/20 23 10:11 AM EDT documented as of this encounter Care Teams Runway Model Relationship Specialty Start Date End Date Theodora Cota FNP [address] [place] [address] PCP - General Family Medicine 10/18/22 documented as of this encounter
[2025-06-03 14:23] LABS: Alanine Aminotransferase 13 U/L (0-31); Albumin Level 4.6 g/dL (3.5-5.0); Alkaline Phosphatase 67 U/L (39-117); Anion Gap 14 (12-20); Aspartate Amino Transferase 20 U/L (5-31); Blood Urea Nitrogen 17 mg/dL (9-16); Calcium 9.5 mg/dL (8.4-10.2); Carbon Dioxide 29 mmol/L (22-29); Chloride 101 mmol/L (96-108); Estimated Glomerular Filt Rate > 60; Magnesium 2.2 mg/dL (1.6-2.6); Potassium 3.9 mmol/L (3.3-5.1); Sodium 140 mmol/L (135-145); Thyroid Stimulating Hormone 1.11 uIU/mL (0.32-4.0); Total Protein 7.3 g/dL (6.5-8.0)
[2025-06-03 15:03] LABS: Folate 15.0 ng/mL (> or = 4.0); Vitamin B12 > 2000 pg/mL (200-900)
[2025-06-04 04:12] LABS: ~HepC Num1 0.08 S/CO (0.00-0.79); ~Hepatitis C Antibody Nonreactive (Nonreactive)
[2025-06-05 03:59] LABS: ~Hepatitis A Antibody IgG 0.36 S/CO (0.00-0.99)
== END 2025-06-03 12:14 | disposition home or self-care (01) ==
LOC: HO.HHCL 12:13
PROVIDERS: Family Medicine; PCP Registered Nurse; Visit Provider Registered Nurse
DX: Z11.59 Encounter for screening for other viral diseases (principal); G25.81 Restless legs syndrome; F11.20 Opioid dependence, uncomplicated; E06.3 Autoimmune thyroiditis
CPT/HCPCS: 36415; 80048; 80076; 82607; 82746; 83735; 84443; 86708; 86803

== ENCOUNTER 2025-08-03 17:57 | Outpatient (REF) | payer OTHER, SELFPAY ==
--- OUTSIDE RECORDS SUMMARY | 2025-08-03 15:30 | XMS_ITS | Encounter Summary ---
Author Organization [employer] Address [address] [facility] [address] [place] [address] Care Team Providers Care Nozzle Tender Name Role Phone Theodora Cota [facility] Primary Care Provider [phone] Reason for Referral * Consultation (Routine) - Pending Review Specialty Diagnoses / Procedures Referred By Simeon kan Referred To Contact Obstetrics and Gynecology Diagnoses Vaginal discharge Paige Soto NP [address] [place] [address] Phone: tel: fax: Referral ID Status Reason Start Date Expiration Date Visits Requested Visits Authorized [id number] Pending Review Specialty Services Required 08/03/2026 1 1 Encounter Details Date Type Department Care Team (Late st Contact Info) Description 08/03/2025 3:30 PM EDT Office Visit [facility] MEDICINE [address] [place], [place] [phone] Paige Soto NP [address] [place], [place] [phone] Vaginal discharge (Primary Dx) Social History Tobacco Use Types Packs/Day Years Used Date Smoking Tobacco: Former Cigarettes Passive Smoke Exposure: Past Smokeless Tobacco: Former Tobacco Cessation:Counseling Given: Not Answered Alcohol Use Standard Drinks/Week Comments Never 0 (1 standard drink = 0.6 oz pur e alcohol) Depression Answer Date Recorded Patient Health Questionnaire-9 Score 11 06/03/2025 Patient Health Questionnaire-9 Score 11 06/03/2025 Last PHQ-9: Questionnaire Data Not on file 0 06/03/2025 Housing Stability Answer Date Recorded What is your housing situation today? I have xi meeks 04/02/[address] you li ve. Do you have problems with any of the following? None of the above 04/02/2025 Food Insecurity Answer Date Recorded Within the past 12 months, y ou worried that your food would run out before you got money to buy more: Never True 04/02/2025 Within the past 12 months,th e food you bought just didn't last and you didn't have enough money to get more: Never True 09/2025 Transportation Answer Date Recorded In the past 12 months, has l ack of transportation kept you from medical appts, meetings, work or from getting things needed for daily living? No 04/02/2025 Utilities Answer Date Recorded In the past 12 months, has t he electric, gas, oil or water company threatened to shut off services in your home? No 04/02/2025 Depression Answer Date Recorded Patient Health Questionnaire-2 Score 3 06/03/2025 Internet Access Answer Date Recorded Internet Access Q1 I am not sure 04/02/2025 Internet Access Q2 Not on file 04/02/2025 Comments Unknown Sex and Gender Information Value Date Recorded Sex Assigned at Female 08/21/2022 10:34 AM EDT Legal Sex Female 10:34 AM EDT Gender Identity Female 08/21/2022 10:34 AM EDT Sexual Orientation Straight 08/21/2022 10 :34 AM EDT documented as of this encounter Last Filed Vital Signs Vital Sign Reading Time Taken Comments Blood Pressure 124/76 08/03/2025 3:24 PM EDT Pulse 83 08/03/2025 3:24 PM EDT Temperature 36.7 C (98.1 F) 08/03/2025 3:24 PM EDT Respiratory Rate 22 08/03/2025 3:24 PM EDT Oxygen Saturation 99% 08/03/2025 3:24 PM EDT Inhaled Oxygen Concentration - - Weight 65.8 kg (145 lb 2 oz) 08/03/2025 3:24 PM EDT Height 160 cm (5' 3 ) 08/03/2025 3:24 PM EDT Body Mass Index 25.71 08/03/2025 3:24 PM EDT documented in this encounter Progress Notes * Paige Soto NP - 08/03/2025 3:30 PM EDT Suzan Pulido is a 55 y.o. female who presents to the office for vaginal discharge for 4 months. Description- light yellow- small amount- using a pad daily Odor- yes, light Previous history of UTI- 6-8 months, recurrent UTI's in the winter- Azo OTC used No alleviating or Exacerbating factors Associated symptoms- no dysuria, urgency, frequency, abdominal or pelvic pain. Full hysterectomy- approximately 15 years ago Sexually active- 1 partner - in the last 12 months Post menopausal bleeding/ Dyspareunia, Vaginal itching, itching, swelling, Redness, or Burning. Use of OTC remidies- Azo for UTI's- last use in the summer Reports goof personal hygeine practices Douche- none No Family history of ovarian cancer/ personal history. Estrogen use contraindications reviewed: No breast cancer, DVT, PE, or stroke; however, she uses a vape. Problem List[1] Medical History[2] Allergies[3] Review of Systems Genitourinary: Positive for vaginal discharge. Negative for difficulty urinating, dyspareunia, dysuria, frequency, genital sores, hematuria, menstrual problem, pelvic pain, urgency, vaginal bleeding and vaginal pain. BP 124/76 (BP Location: Left arm, Patient Position: Sitting, BP Cuff Size: Adult) Pulse 83 Temp98.1 ??F (36.7 ??C) (Oral) Resp 22 Ht 5' 3 (1.6 m) Wt 145 lb 2 oz (65.8 kg) SpO2 99% BMI25.71 kg/m?? Physical Exam Genitourinary: Exam position: Knee-chest position. Labia: Right: Lesion present. No rash or tenderness. Left: No rash or tenderness. Comments: Small Right introitus erythema lesion Vaginal mucusa normal, No dry, pale, or thin mucosa and no vaginal discharge noted on the exam Results: Office Visit on 07/24/2025 Component Date Value Ref Range Status THC 07/24/2025 Negative Negative Final Cocaine Screen, Urine 07/24/2025 Negative Negative Final Opiate Screen, Urine 07/24/2025 Negative Negative Final Methamphetamine Screen Urine 07/24/2025 Negative Negative Final Amphetamine Screen, Urine 07/24/2025 Negative Negative Final Benzodiazepines Screen, Urine 07/24/2025 Negative Negative Final Barbiturate Screen, Urine 07/24/2025 Negative Negative Final Methadone Screen, Urine 07/24/2025 Negative Negative Final Buprenophine Screen, Urine 07/24/2025 Negative Negative Final TCA, Urine 07/24/2025 Negative Negative Final MDMA Urine 07/24/2025 Negative Negative ng/mL Final Oxycodone Screen, Urine 07/24/2025 Negative Negative Final Phencyclidine (PCP), Urine 07/24/2025 Negative Negative Final Fentanyl, Urine 07/24/2025 Negative Negative Final Assessment & Plan Vaginal discharge Will order bacterial vaginosis panel to rule out vaginitis Will send her to [facility] due to microscopic lesion found on the right introitus Will contact her with the plan for treatment based on the urine and vaginosis panel. Continue on the proper vaginal hygiene. Orders: Chlamydia/N. Gonorrhoeae, PCR, Urine Bacterial Vaginosis Panel Referral to Obstetrics / Gynecology; Future Current Medications[4] [facility] Attestation [facility] Resident Attestation: Patient was seen and evaluated by Jessa RUTH, in collaboration with Paige Soto [facility] who hasreviewed my assessment and plan. I, Paige Soto [facility] , have reviewed the resident's note and agree with the assessment & plan of care as documented above. [1] Patient Active Problem List Diagnosis Plantar fasciitis Anxiety Essential hypertension Hyperkalemia Palpitations Other specified hypothyroidism Vitamin D deficiency Opioid dependence (HCC) CTS (carpal tunnel syndrome) Obesity (BMI 30-39.9) Healthcare maintenance ADHD Acquired hallux valgus Raynaud's phenomenon without gangrene [2] No past medical history on file. [3] Allergies Allergen Reactions Nitrofurantoin Hives Other reaction(s): Hives / Skin Rash [4] Current Outpatient Medications: atomoxetine (Strattera) 40 MG capsule, TAKE 2 CAPSULES BY MOUTH EVERY DAY, Disp: 180 capsule, Rfl: 3 clonazePAM (KlonoPIN) 0.5 MG tablet, Take 1 tablet (0.5 mg) by mouth if needed in the morning and at bedtime for anxiety., Disp: 56 tablet, Rfl: 0 cyanocobalamin (Vitamin B-12) 1000 MCG tablet, TAKE 1 TABLET BY MOUTH EVERY DAY, Disp: 90 tablet, Rfl: 2 FLUoxetine (PROzac) 40 MG capsule, Take 1 capsule (40 mg) by mouth in the morning., Disp: 90 capsule, Rfl: 3 hydroCHLOROthiazide (HYDRODiuril) 25 MG tablet, TAKE 1 TABLET BY MOUTH EVERY DAY, Disp: 90 tablet, Rfl: 2 levothyroxine (Synthroid, Levoxyl) 88 MCG tablet, TAKE 1 TABLET BY MOUTH EVERY DAY BEFORE BREAKFAST, Disp: 90 tablet, Rfl: 1 loratadine (Claritin) 10 MG tablet, TAKE 1 TABLET BY MOUTH EVERY DAY, Disp: 90 tablet, Rfl: 2 naltrexone (Depade) 50 MG tablet, Take 1 tablet (50 mg) by mouth Once per day., Disp: 90 tablet, Rfl: 0 olmesartan (BENIcar) 5 MG tablet, TAKE 1 TABLET BY MOUTH EVERY DAY, Disp: 90 tablet, Rfl: 3 traZODone (Desyrel) 50 MG tablet, Take 1 tablet (50 mg) by mouth at bedtime., Disp: 30 tablet, Rfl:3 documented in this encounter Plan of Treatment Upcoming Encounters Date Type Department Care Team (Late st Contact Info) Description 08/04/2025 9:15 AM EDT Office Visit [address] [address] Karmen Farah DO [address] [place] [address] 08/21/2025 1:15 PM EDT Office Visit [address] [phone] Kurt Woodward MD [address] [place] [phone] 10/05/2025 10:00 AM EST Office Visit [address] [address] Theodora Cota FNP [address] [place] [address] Scheduled Orders Name Type Priority Associated Diagnoses Orde r Schedule Chlamydia/N. Gonorrhoeae, PCR, Urine Lab Routine Vaginal discharge Ordered: 08/03/2025 Bacterial Vaginosis Panel Microbiology Routine Vaginal discharge Ordered: 08/03/2025 Scheduled Referrals Name Type Priority Associated Diagnoses Order Schedule Referral to Obstetrics / Gynecology Outpatient Referral Routine Vaginal discharge Expected: 08/03/2025 (Approximate), Expires: 08/03/2026 documented as of this encounter Visit Diagnoses Diagnosis Vaginal discharge- Primary Leukorrhea, not specified as infective documented in this encounter Additional Health Concerns Assessment Noted Time PHQ-9 Depression Total Score: 11 025 12:08 PM EDT documented as of this encounter Care Teams Nozzle Tender Relationship Specialty Start Date End Date Theodora Cota FNP [address] [place] [phone] PCP - General Family Medicine 10/18/22 documented as of this encounter
--- OUTSIDE RECORDS SUMMARY | 2025-08-03 18:00 | XMS_ITS | Encounter Summary ---
Author Organization [employer] Address [address] [facility] [address] [place] [address] Care Team Providers Care Mortgage Funder Name Role Phone [facility] Primary Care Provider [phone] Reason for Visit * Reason Comments Med Change Request Encounter Details Date Type Department Care Team (Late st Contact Info) Description 03/08/2025 Refill [facility] MEDICINE [address] [place], [place] [phone] [facility] [address] [place] [address] Anxiety Social History Tobacco Use Types Packs/Day Years Used Date Smoking Tobacco: Never Smokeless Tobacco: Never Alcohol Use Standard Drinks/Week Comments Never 0 (1 standard drink = 0.6 oz pur e alcohol) Depression Answer Date Recorded Patient Health Questionnaire-9 Score 17 02/16/2025 Patient Health Questionnaire-9 Score 17 02/16/2025 Last PHQ-9: Questionnaire Data Not on file 0 02/16/2025 Housing Stability Answer Date Recorded What is [...] Date Recorded Patient Health Questionnaire-2 Score 3 02/16/2025 Comments Unknown Sex and Gender Information Value [...] Description 08/04/2025 9:15 AM EDT Office Visit [address] [address] Karmen Farah DO [address] [place] [address] 08/21/2025 1:15 PM EDT Office Visit [address] [address] Kurt Woodward MD [address] [place] [address] 10/05/2025 10:00 AM EST Office Visit [address] [address] Theodora Cota FNP [address] [place] [address] documented as of this encounter Visit Diagnoses Diagnosis Anxiety Anxiety state, unspecified documented in this encounter Additional Health Concerns Assessment Noted Time PHQ-9 Depression Total Score: 17 025 10:38 AM EDT documented as of this encounter Care Teams Mortgage Funder Relationship Specialty Start Date End Date Theodora Cota FNP [address] [place] [address] PCP - General Family Medicine 10/18/22 documented as of this encounter
--- OUTSIDE RECORDS SUMMARY | 2025-08-03 18:00 | XMS_ITS | Encounter Summary ---
Author Organization [employer] Address [address] [facility] [address] [place] [address] Care Team Providers Care County Treasurer Name Role Phone [facility] Primary Care Provider [phone] Reason for Visit * Reason Onset Date Comments Med Refill 07/22/2025 Encounter Details Date Type Department Care Team (Late st Contact Info) Description 07/22/2025 Refill [facility] MEDICINE [address] [place], [place] [phone] [facility] [address] [place] [address] Attention deficit Social History Tobacco Use Types Packs/Day Years Used Date Smoking Tobacco: Every Day Cigarettes Smokeless Tobacco: Never Alcohol Use Standard Drinks/Week [...] Description 08/04/2025 9:15 AM EDT Office Visit [facility] MEDICINE [address] [place] [address] Karmen Farah DO [address] [place] [phone] 08/21/2025 1:15 PM EDT Office Visit [facility] MEDICINE [address] [place] [address] Kurt Woodward MD [address] [place] [address] 10/05/2025 10:00 AM EST Office Visit [facility] MEDICINE [address] [place] [address] Theodora Cota FNP [address] [place] [address] documented as of this encounter Visit Diagnoses Diagnosis Attention deficit documented in this encounter Additional Health Concerns Assessment Noted Time PHQ-9 Depression Total Score: 11 025 12:08 PM EDT documented as of this encounter Care Teams County Treasurer Relationship Specialty Start Date End Date Theodora Cota FNP [address] [place] [address] PCP - General Family Medicine 10/18/22 documented as of this encounter
--- OUTSIDE RECORDS SUMMARY | 2025-08-03 18:00 | XMS_ITS | Encounter Summary ---
Author Organization [employer] Address [address] [facility] [address] [place] [address] Care Team Providers Care Hydro Technician Name Role Phone Theodora Cota [facility] Primary Care Provider [phone] Reason for Visit * Reason Comments Med Refill Encounter Details Date Type Department Care Team (Late st Contact Info) Description 10/05/2024 Refill [facility] MEDICINE [address] [place], [place] [phone] Kayley Burden MD [address] [place] [address] Social History Tobacco Use Types Packs/Day Years [...] Description 08/04/2025 9:15 AM EDT Office Visit [address] [address] Karmen Farah DO [address] [place] [address] 08/21/2025 1:15 PM EDT Office Visit [address] [address] Kurt Woodward MD [address] [place] [address] 10/05/2025 10:00 AM EST Office Visit [address] [address] Theodora Cota FNP [address] [place] [address] documented as of this encounter Visit Diagnoses Not on filedocumented in this encounter Additional Health Concerns Assessment Noted Time PHQ-9 Depression Total Score: 0 02/15/20 24 10:17 AM EDT documented as of this encounter Care Teams Hydro Technician Relationship Specialty Start Date End Date Theodora Cota FNP [address] [place] [address] PCP - General Family Medicine 10/18/22 documented as of this encounter
--- OUTSIDE RECORDS SUMMARY | 2025-08-03 18:00 | XMS_ITS | Encounter Summary ---
Author Organization [employer] Address [address] [facility] [address] 7t [place] [address] Care Team Providers Care Plant Wire Chief Name Role Phone Theodora Cota GAS ENGINEER Primary Care Provider [phone] Reason for Visit * Reason Onset Date Comments Nurse Triage 07/30/2025 Encounter Details Date Type Department Care Team (Late st Contact Info) Description 07/30/2025 Telephone [facility] 230 [place], [place] [phone] Shayy Cabral, RN 230 [place] [address] Nurse Triage Social History Tobacco Use Types [...] encounter Miscellaneous Notes * Telephone Encounter - Gabrielle Benitez RN - 07/31/2025 8:54 AM EDT TC placed to pt regarding vaginal discharge. Pt reports light yellow vaginal discharge and vaginal odor x 4 to 6 months. Pt reports they thought it was normal, but it is now becoming annoying. Pt denies fever, abdominal pain, vaginal itching. Pt unsure if they needed a pap for testing. Advised appointment for symptoms can be booked but does not need pap at this time unless they would like to be scheduled. Pt booked for appointment with Paige Soto NP on 08/03/25 at 3:30 PM for evaluation of vaginal discharge. Advised pt of [facility] hours. Pt agreeable to appointment. Pt also requesting referral to endocrinology for management of hypothyroidism/Ivis. Pt reportsthey were previously following endocrinology at [facility], but the provider left the practice so pt has not been seen in 2 years. Pt would like referral to endocrinology in [facility]. Pt reports they will be driving by the practice today and will send the information via their revoPT portal. Advised message to be forwarded to PCP to review and advise. Pt verbalized understanding. Pt also reports they have been on leave at work and FMLA has run out. Pt spoke to their employer who states they could have been using their short-term disability this whole time. Pt reports they were advised by their employer to bring paperwork to PCP. Pt reports they are going to try to get the paperwork to medical records today and wanted to give PCP a heads up that they would be bringing the paperwork in. Advised message to be sent to PCP for review. Pt verbalized understanding and denies questions at this time. Protocol Used: Vaginal Discharge (Adult) Protocol-Based Disposition: See in Office or Video Visit within 3 Days Positive Triage Questions: * Bad smelling vaginal discharge * Abnormal color vaginal discharge (i.e., yellow, green, donald) * All higher-acuity triage questions were negative Care Advice Discussed: * Reasons To Call Back - Fever or abdomen pain occur - You become worse * Telephone Encounter - Isabelle Shah - 07/31/2025 8:45 AM EDT Pt requesting a call back regarding prior message Contact pt at [phone] * Telephone Encounter - Shayy Cabral RN - 07/30/2025 1:22 PM EDT Hello Theodora I???m having some kind of discharge with light color and light odor. Can I get an appointment for aPap smear?? Also, I need a referral to an Roving Winder, possibly Hernandez in [place] , to follow up withmy Thyroid issues? Thank you so much Suzan Pulido Telephone call placed to pt to triage regarding above mychart message. No answer, left v/m. documented in this encounter Plan of Treatment Upcoming Encounters Date Type Department Care Team (Late st Contact Info) Description 08/04/2025 9:15 AM EDT Office Visit [facility] MED[facility] [address] [place] [address] Karmen Farah, [address] [facility] [place] [address] 08/21/2025 1:15 PM EDT Office Visit [address] [place] [address] Kurt Woodward MD 230 [place] [address] 10/05/2025 10:00 AM EST Office Visit [address] [place] [address] Theodora Cota FNP [address] [place] [address] documented as of this encounter Visit Diagnoses Not on filedocumented in this encounter Additional Health Concerns Assessment Noted Time PHQ-9 Depression Total Score: 11 06/03/ 025 12:08 PM EDT documented as of this encounter Care Teams Plant Wire Chief Relationship Specialty Start Date End Date Theodora Cota FNP [address] [place] [address] PCP - General Family Medicine 10/18/22 documented as of this encounter
--- OUTSIDE RECORDS SUMMARY | 2025-08-03 18:00 | XMS_ITS | Encounter Summary ---
Author Organization [employer] Address [address] [facility] [address] 7t [place] [address] Care Team Providers Care Steward/Stewardess Smoke Room Name Role Phone [facility] Primary Care Provider [phone] Encounter Details Date Type Department Care Team (Late st Contact Info) Description 04/25/2023 Orders Only [facility] MEDICINE 230 [place] [address] [facility] 230 [place] [address] Screening examination for pulmonary tuberculosis (Primary Dx) [...] AM EDT documented as of this encounter Functional Status * Over the past 2 weeks, how often have you been bothered by any of the following problems? Question Answer Date of Assessment Author Patient Health Questionnaire -2 Score 0 04/25/2023 10:12 AM EDT Joselin Phillips * Over the past 2 weeks, how often have you been bothered by any of the following problems? Question Answer Date of Assessment Author Little interest or pleasure in doing things Not at all 04/25/2023 10:12 AM EDJoselin Capellan Feeling down, depressed, or hopeless Not at all 04/25/2023 10:12 AM EDT Joselin Phillips Trouble falling or staying asleep, or sleeping too much Not at all 04/25/2023 10:12 AM EDT Bekah Acosta Feeling tired or having bekah le energy Not at all 04/25/2023 10:12 AM EDJoselin Capellan Poor appetite or overeating Not at all 04/25/2023 10 :12 AM Bekah Lira Feeling bad about yourself - or that you are a failure or have let yourself or your family down Not at all 04/25/2023 10:12 AM EDT Joselin Phillpis Trouble concentrating on things, such as reading the newspaper or watching television Not at all 04/25/2023 10:12 AM Joselin Lira Moving or speaking so slowly that other people could have noticed? Or the opposite - being so fidgety or restless that you have been moving around a lot more than usual. Not at all 04/25/2023 10:12 AM EDT Bekah Pena Thoughts that you would be better off or hurting yourself in some way Not at all 04/25/2023 10:12 AM URIAHT Hilda hPillips Patient Health Questionnaire -9 Score 0 04/25/2023 10:12 AM EDT Joselin Phillips documented as of this encounter Plan of Treatment Upcoming Encounters Date Type Department Care Team (Late st Contact Info) Description 08/04/2025 9:15 AM EDT Office Visit [address] [address] Karmen Farah DO 230 [facility] [place] [address] 08/21/2025 1:15 PM EDT Office Visit [facility] 230 [facility] [place] [address] Kurt Woodward MD 230 [place], [place] [phone] 10/05/2025 10:00 AM EST Office Visit [facility] [place] [address] Theodora Cota FNP 230 [place] [address] Scheduled Orders Name Type Priority Associated Diagnoses Orde r Schedule QuantiFERON -TB Gold Plus, 1 Tube Lab Routine Screening examination for pulmonary tuberculosis Expected: 04/25/2023 (Approximate), Expires: 04/25/2024 documented as of this encounter Visit Diagnoses Diagnosis Screening examination for pulmonary tuberculosis- Primary documented in this encounter Additional Health Concerns Assessment Noted Time PHQ-9 Depression Total Score: 0 04/25/20 23 10:12 AM EDT documented as of this encounter Care Teams Steward/Stewardess Smoke Room Relationship Specialty Start Date End Date [place] [address] PCP - General Family Medicine 10/18/22 documented as of this encounter
--- OUTSIDE RECORDS SUMMARY | 2025-08-03 18:00 | XMS_ITS | Encounter Summary ---
Author Organization [employer] Address 75 [facility] 7 [place] [address] Care Team Providers Care Helper Metal Hanging Name Role Phone Theodora Cota CALCULATION CLERK Primary Care Provider [phone] Encounter Details Date Type Department Care Team (Late st Contact Info) Description 07/29/2025 Telephone [facility] MEDICINE 230 [place] [address] Taina Calvo, PharmD 230 [place] [address] Social History Tobacco Use Types Packs/Day Years [...] encounter Miscellaneous Notes * Telephone Encounter - Taina Calvo PharmD - 07/29/2025 10:45 AM EDT Please assist in obtaining discharge paperwork from [facility]. Patient was discharged on 07/21/25. Thank you documented in this encounter Plan of Treatment Upcoming Encounters Date Type Department Care Team (Late st Contact Info) Description 08/04/2025 9:15 AM EDT Office Visit [address] [address] Karmen Farah DO [address] [place] [address] 08/21/2025 1:15 PM EDT Office Visit [address] [address] Kurt Woodward MD [address] [place] [address] 10/05/2025 10:00 AM EST Office Visit [address] [address] Theodora Cota FNP 230 [place] [address] documented as of this encounter Visit Diagnoses Not on filedocumented in this encounter Additional Health Concerns Assessment Noted Time PHQ-9 Depression Total Score: 11 06/03/ 025 12:08 PM EDT documented as of this encounter Care Teams Helper Metal Hanging Relationship Specialty Start Date End Date Theodora Cota FNP 230 [place] [address] PCP - General Family Medicine 10/18/22 documented as of this encounter
--- OUTSIDE RECORDS SUMMARY | 2025-08-03 18:00 | XMS_ITS | Encounter Summary ---
Author Organization [employer] Address [address] [facility] [address] 7t [place] [address] Care Team Providers Care Hand Clipper Name Role Phone [place] [facility] Primary Care Provider Reason for Visit * Reason Onset Date Comments Med Refill 07/22/2025 Encounter Details Date Type Department Care Team (Late st Contact Info) Description 07/22/[address] [facility] MED[facility]INE 230 [place], [place] [phone] [facility] 230 [place] [address] Depression, unspecified depression type Social History Tobacco Use Types Packs/Day Years [...] Description 08/04/2025 9:15 AM EDT Office [facility] [address] [place] [address] Karmen Farah DO [address] [place] [address] 08/21/2025 1:15 PM EDT Office Visit [facility] [address] [place] [address] Kurt Woodward MD [address] [place] [address] 10/05/2025 10:00 AM EST Office Visit [facility] [address] [place] [address] Theodora Cota FNP [address] [place] [address] documented as of this encounter Visit Diagnoses Diagnosis Depression, unspecified depression type documented in this encounter Additional Health Concerns Assessment Noted Time PHQ-9 Depression Total Score: 11 025 12:08 PM EDT documented as of this encounter Care Teams Hand Clipper Relationship Specialty Start Date End Date Theodora Cota FNP [address] [place] [address] PCP - General Family Medicine 10/18/22 documented as of this encounter
--- OUTSIDE RECORDS SUMMARY | 2025-08-03 18:00 | XMS_ITS | Encounter Summary ---
Author Organization [employer] Address [address] [facility] [address] 7t [place] [address] Care Team Providers Care Assembler Convertible Top Name Role Phone [facility] Primary Care Provider [phone] Encounter Details Date Type Department Care Team (Late st Contact Info) Description 06/05/2025 Results Follow-Up [facility] 230 [place] [address] [facility] 230 [place] [address] TSH Social History Tobacco Use Types Packs/Day Years [...] Description 08/04/2025 9:15 AM EDT Office Visit [facility] MEDICINE [address] [place] [address] Karmen Farah DO [address] [place] [address] 08/21/2025 1:15 PM EDT Office Visit [facility] MEDICINE [address] [place] [address] Kurt Woodward MD [address] [place] [address] 10/05/2025 10:00 AM EST Office Visit [facility] MEDICINE [address] [place] [address] Theodora Cota FNP [address] [place] [address] documented as of this encounter Visit Diagnoses Not on filedocumented in this encounter Additional Health Concerns Assessment Noted Time PHQ-9 Depression Total Score: 11 025 12:08 PM EDT documented as of this encounter Care Teams Assembler Convertible Top Relationship Specialty Start Date End Date Theodora Cota FNP [address] [place] [address] PCP - General Family Medicine 10/18/22 documented as of this encounter
--- OUTSIDE RECORDS SUMMARY | 2025-08-03 18:00 | XMS_ITS | Encounter Summary ---
Author Organization [employer] Address [address] [facility] [address] 7t [place] [address] Care Team Providers Care Sew On Operator Name Role Phone Theodora Cota [facility] Primary Care Provider [phone] Encounter Details Date Type Department Care Team (Latest Contact Info) Description 08/03/2025 Travel Social History Tobacco Use Types Packs/Day Years Used Date Smoking Tobacco: Former Cigarettes Passive Smoke Exposure: Past Smokeless Tobacco: Former Alcohol Use Standard Drinks/Week Comments Never 0 [...] Description 08/04/2025 9:15 AM EDT Office Visit [address] [address] Karmen Farah DO [address] [place] [address] 08/21/2025 1:15 PM EDT Office Visit [address] [address] Kurt Woodward MD [address] [place] [address] 10/05/2025 10:00 AM EST Office Visit [address] [address] Theodora Cota FNP [address] [place] [address] documented as of this encounter Visit Diagnoses Not on filedocumented in this encounter Additional Health Concerns Assessment Noted Time PHQ-9 Depression Total Score: 11 025 12:08 PM EDT documented as of this encounter Care Teams Sew On Operator Relationship Specialty Start Date End Date Theodora Cota FNP [address] [place] [address] PCP - General Family Medicine 10/18/22 documented as of this encounter
--- OUTSIDE RECORDS SUMMARY | 2025-08-03 18:00 | XMS_ITS | Encounter Summary ---
Author Organization [employer] Address [address] [facility] [address] 7t [place] [address] Care Team Providers Care Packaging Specialist Name Role Phone Theodora Cota CUTTING TORCH OPERATOR Primary Care Provider [phone] Reason for Visit * Reason Comments Med Refill Encounter Details Date Type Department Care Team (Late st Contact Info) Description 04/29/2025 Refill [facility] MEDICINE 230 [place], [place] [phone] Kayley Burden MD 230 [place] [address] Social History Tobacco Use Types Packs/Day Years [...] Recorded Patient Health Questionnaire-2 Score 3 02/16/2025 Internet Access Answer Date Recorded Internet Access [...] 9:15 AM EDT Office Visit [facility] MEDICINE [address] [place] [address] Karmen Farah DO [address] [place] [address] 08/21/2025 1:15 PM EDT Office Visit [facility] MEDICINE [address] [place] [address] Kurt Woodward MD [address] [place] [address] 10/05/2025 10:00 AM EST Office Visit [facility] MEDICINE [address] [place] [address] Theodora Cota FNP [address] [place] [address] documented as of this encounter Visit Diagnoses Not on filedocumented in this encounter Additional Health Concerns Assessment Noted Time PHQ-9 Depression Total Score: 17 025 10:38 AM EDT documented as of this encounter Care Teams Packaging Specialist Relationship Specialty Start Date End Date Theodora Cota FNP [address] [place] [address] PCP - General Family Medicine 10/18/22 documented as of this encounter
--- OUTSIDE RECORDS SUMMARY | 2025-08-03 18:00 | XMS_ITS | Encounter Summary ---
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; Essential hypertension Social History Tobacco Use Types Packs/Day Years [...] Description 08/04/2025 9:15 AM EDT Office Visit [facility] MED[facility]INE [address] [place] [address] Karmen Farah DO [address] [place] [address] 08/21/2025 1:15 PM EDT Office Visit [facility] MED[facility]INE [address] [place] [address] Kurt Woodward MD [address] [place] [address] 10/05/2025 10:00 AM EST Office Visit [facility] MED[facility] [address] [place] [address] Theodora Cota FNP [address] [place] [address] documented as of this encounter Visit Diagnoses Diagnosis 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
--- OUTSIDE RECORDS SUMMARY | 2025-08-03 18:00 | XMS_ITS | Encounter Summary ---
Author Organization [employer] Address [address] [facility] [address] 7[address] [place] [address] Care Team Providers Care Golf Ball Marker Name Role Phone [facility] Primary Care Provider [phone] Reason for Visit * Reason Comments Transition Of Care (Tcm) HDF scheduled Encounter Details Date Type Department Care Team (Late st Contact Info) Description 07/15/2025 Patient Outreach [facility] [address] [place], [place] [phone] [facility] 230 [place] [address] Transition Of Care (Tcm) (HDF scheduled) Social History Tobacco Use Types Packs/Day Years [...] as of this encounter Miscellaneous Notes * Significant Event - Fern Garcia - 07/15/2025 11:27 AM EDT 07/15/25 1125 Hospital Discharges and Admission for [facility] Type of Visit Hospital Admission Date of Admission/Visit 06/11/25 Date of Discharge 07/21/25 Facility [facility] Diagnosis Alcohol use Disorder Disposition Discharged Home Follow-Up Actions Follow-Up Needed Provider appointment Follow-Up Outcome Spoke to Patient;Booked Appointment Initial Contact Date 07/15/25 Received incoming call from the [facility]. CM Spoke with Emma from [facility]. Patient was admitted to this facility on 06/11/2025 for diagnosis of Alcohol Use disorder. Patient willbe discharged from the facility on 07/21/2025. Patient has been scheduled for an HDF appointment on08/04/2025 at 9:15am with Dr. Gagan FELICIANO requested discharge summaries to be faxed to the Care Management Department at [phone]. CC will follow up on discharge summary following patient's discharge. Insurance verified prior to scheduling. documented in this encounter Plan of Treatment Upcoming Encounters Date Type Department Care Team (Late st Contact Info) Description 08/04/2025 9:15 AM EDT Office Visit [facility] [address] [facility] [place] [address] Karmen Farah DO [address] [facility] [place] [phone] 08/21/2025 1:15 PM EDT Office Visit [facility] [address] [facility] [place] [phone] Kurt Woodward MD 230 [facility] [place], [place] [phone] 10/05/2025 10:00 AM EST Office Visit [facility] [place] [address] Theodora Cota FNP 230 [place] [address] documented as of this encounter Visit Diagnoses Not on filedocumented in this encounter Additional Health Concerns Assessment Noted Time PHQ-9 Depression Total Score: 11 025 12:08 PM EDT documented as of this encounter Care Teams Golf Ball Marker Relationship Specialty Start Date End Date Theodora Cota FNP [address] [place] [address] PCP - General Family Medicine 10/18/22 documented as of this encounter
--- OUTSIDE RECORDS SUMMARY | 2025-08-03 18:00 | XMS_ITS | Encounter Summary ---
Author Organization [employer] Address [address] [facility] [address] [place] [address] Care Team Providers Care Supervisor Bottle Machines Name Role Phone [place] [facility] Primary Care Provider [phone] Reason for Visit * Reason Comments Med Refill Encounter Details Date Type Department Care Team (Late st Contact Info) Description 08/02/2023 Refill [facility] 230 [place] [address] [facility] 230 [place] [address] Dyspepsia Social History Tobacco Use Types Packs/Day Years Used Date Smoking Tobacco: Never Smokeless Tobacco: Never Alcohol Use Standard Drinks/Week Comments Never 0 (1 standard drink = 0.6 oz pur e alcohol) Depression Answer Date Recorded Patient Health Questionnaire-9 Score 0 04/25/2023 Housing Stability Answer Date Recorded What is your housing situation today? I have xirubén meeks 07/29/[address] you [...] Description 08/04/2025 9:15 AM EDT Office Visit [address] [address] Karmen Farah DO [address] [place] [address] 08/21/2025 1:15 PM EDT Office Visit [address] [address] Kurt Woodward MD [address] [place] [address] 10/05/2025 10:00 AM EST Office Visit [address] [address] Theodora Cota FNP [address] [place] [address] documented as of this encounter Visit Diagnoses Diagnosis Dyspepsia Dyspepsia and other specified disorders of function of stomach documented in this encounter Additional Health Concerns Assessment Noted Time PHQ-9 Depression Total Score: 0 04/25/20 23 10:12 AM EDT documented as of this encounter Care Teams Supervisor Bottle Machines Relationship Specialty Start Date End Date Theodora Cota FNP [address] [place] [address] PCP - General Family Medicine 10/18/22 documented as of this encounter
--- OUTSIDE RECORDS SUMMARY | 2025-08-03 18:00 | XMS_ITS | Encounter Summary ---
Author Organization [employer] Address [address] 7t [place] [address] Care Team Providers Care Rn Pain Management Name Role Phone Theodora Cota [facility] Primary Care Provider [phone] Reason for Visit * Reason Comments Med Refill Encounter Details Date Type Department Care Team (Late st Contact Info) Description 08/20/2023 Refill [facility] MEDICINE 230 [place], [place] [phone] Karmen Farah DO 230 [place], [place] [phone] Social History Tobacco Use Types Packs/Day Years [...] Description 08/04/2025 9:15 AM EDT Office Visit [address] [address] Karmen Farah DO [address] [place] [address] 08/21/2025 1:15 PM EDT Office Visit [address] [address] Kurt Woodward MD [address] [place] [address] 10/05/2025 10:00 AM EST Office Visit [address] [address] Theodora Cota FNP [address] [place] [address] documented as of this encounter Visit Diagnoses Not on filedocumented in this encounter Additional Health Concerns Assessment Noted Time PHQ-9 Depression Total Score: 0 08/10/20 10:11 AM EDT documented as of this encounter Care Teams Rn Pain Management Relationship Specialty Start Date End Date Theodora Cota FNP 230 [place] [address] PCP - General Family Medicine 10/18/22 documented as of this encounter
--- OUTSIDE RECORDS SUMMARY | 2025-08-03 18:00 | XMS_ITS | Encounter Summary ---
Author Organization [employer] Address [address] 7t [place] [address] Care Team Providers Care Astronomy Professor Name Role Phone [facility] Primary Care Provider [phone] Reason for Visit * Reason Onset Date Comments Nurse Triage 10/02/2024 Encounter Details Date Type Department Care Team (Late st Contact Info) Description 10/02/2024 Telephone [facility] MEDICINE 230 [place], [place] [phone] [facility] [place] 230 [place] [address] Nurse Triage Social History Tobacco Use Types [...] caller accepted this outcome. Contact pt at [phone] documented in this encounter Plan of Treatment Upcoming Encounters Date Type Department Care Team (Late st Contact Info) Description 08/04/2025 9:15 AM EDT Office Visit [address] [address] Karmen Farah DO 230 [place] [address] 08/21/2025 1:15 PM EDT Office Visit [address] [address] Kurt Woodward MD [address] [place] [address] 10/05/2025 10:00 AM EST Office Visit [address] [address] Theodora Cota FNP [address] [place] [address] documented as of this encounter Visit Diagnoses Not on filedocumented in this encounter Additional Health Concerns Assessment Noted Time PHQ-9 Depression Total Score: 0 02/15/20 24 10:17 AM EDT documented as of this encounter Care Teams Astronomy Professor Relationship Specialty Start Date End Date Theodora Cota FNP [address] [place] [address] PCP - General Family Medicine 10/18/22 documented as of this encounter
--- OUTSIDE RECORDS SUMMARY | 2025-08-03 18:00 | XMS_ITS | Encounter Summary ---
Author Organization [employer] Address [address] 7[address] [place] [address] Care Team Providers Care Shirt Trimmer Name Role Phone Beata [facility] Primary Care Provider [phone] Reason for Visit * Reason Onset Date Comments Chart Prep 07/30/2025 Encounter Details Date Type Department Care Team (Late st Contact Info) Description 07/30/2025 Telephone [facility] MEDICINE 230 [place], [place] [phone] [facility] 230 [place] [address] Chart Prep Social History Tobacco Use Types Packs/Day Years [...] encounter Miscellaneous Notes * Telephone Encounter - Charline Corley MA - 07/30/2025 8:16 AM EDT Chart Prep Labs: done Images: not applicable Referrals: complete Vaccines due: Flu and Hep B Screenings: mammogram and pap smear Overdue care gaps: SBIRT and Oral health screening documented in this encounter Plan of Treatment Upcoming Encounters Date Type Department Care Team (Late st Contact Info) Description 08/04/2025 9:15 AM EDT Office Visit [facility] MED[facility]INE [address] [place] [address] Karmen Farah DO [address] [place] [address] 08/21/2025 1:15 PM EDT Office Visit [facility] [address] [place] [address] Kurt Woodward MD [address] [place] [address] 10/05/2025 10:00 AM EST Office Visit [facility] [address] [place] [address] Theodora Cota FNP 230 [place] [address] documented as of this encounter Visit Diagnoses Not on filedocumented in this encounter Additional Health Concerns Assessment Noted Time PHQ-9 Depression Total Score: 11 06/03/ 025 12:08 PM EDT documented as of this encounter Care Teams Shirt Trimmer Relationship Specialty Start Date End Date Theodora Cota FNP 230 [place] [address] PCP - General Family Medicine 10/18/22 documented as of this encounter
--- OUTSIDE RECORDS SUMMARY | 2025-08-03 18:00 | XMS_ITS | Encounter Summary ---
Author Organization [employer] Address [address] 7t [place] [address] Care Team Providers Care Residential Property Tax Appraiser Name Role Phone [facility] Primary Care Provider Reason for Visit * Reason Comments Med Refill Encounter Details Date Type Department Care Team (Late st Contact Info) Description 01/24/2024 Refill [facility] MEDICINE 230 [place], [place] [phone] [facility] 230 [place] [address] Social History Tobacco Use Types Packs/Day Years [...] Description 08/04/2025 9:15 AM EDT Office Visit [address] [address] Karmen Farah DO [address] [place] [address] 08/21/2025 1:15 PM EDT Office Visit [address] [address] Kurt Woodward MD [address] [place] [address] 10/05/2025 10:00 AM EST Office Visit [address] [address] Theodora Cota FNP [address] [place] [address] documented as of this encounter Visit Diagnoses Not on filedocumented in this encounter Additional Health Concerns Assessment Noted Time PHQ-9 Depression Total Score: 0 08/10/20 10:11 AM EDT documented as of this encounter Care Teams Residential Property Tax Appraiser Relationship Specialty Start Date End Date Theodora Cota FNP [address] [place] [address] PCP - General Family Medicine 10/18/22 documented as of this encounter
--- OUTSIDE RECORDS SUMMARY | 2025-08-03 18:00 | XMS_ITS | Encounter Summary ---
Author Organization [employer] Address [address] [place] [address] Care Team Providers Care Car Icer Name Role Phone Ideal [facility] Primary Care Provider [phone] Reason for Visit * Reason Onset Date Comments Med Refill 06/03/2025 Encounter Details Date Type Department Care Team (Late st Contact Info) Description 06/03/2025 Refill [facility] MEDICINE 230 [place], [place] [phone] Ideal [facility] 230 [place] [address] Depression, unspecified depression type Social History Tobacco [...] Answer Date of Assessment Author Patient Health Questionnaire-2 Score 3 06/03/2025 12:08 PM EDT Paloma Faulkner MA * Little interest or pleasure in doing things Answer Date of Assessment Author Several days 06/03/2025 12:08 PM EDT Paloma Wong MA * Feeling down, depressed, or hopeless Answer Date of Assessment Author More than half the days 06/03/2025 12:08 PM EDT Paloma Silvestre MA * Trouble falling or staying asleep, or sleeping too much Answer Date of Assessment Author Several days 06/03/2025 12:08 PM EDT Paloma Wong MA * Feeling tired or having little energy Answer Date of Assessment Author Several days 06/03/2025 12:08 PM EDT Paloma Wong MA * Poor appetite or overeating Answer Date of Assessment Author Several days 06/03/2025 12:08 PM EDT Paloma Wong MA * Feeling bad about yourself - or that you are a failure or have let yourself or your family down Answer Date of Assessment Author More than half the days 06/03/2025 12:08 PM EDT Paloma Silvestre MA * Trouble concentrating on things, such as reading the newspaper or watching television Answer Date of Assessment Author More than half the days 06/03/2025 12:08 PM Paloma Jack MA * Moving or speaking so slowly that other people could have noticed? Or the opposite - being so fidgety or restless that you have been moving around a lot more than usual. Answer Date of Assessment Author Several days 06/03/2025 12:08 PM Paloma Zuniga MA * Thoughts that you would be better off or hurting yourself in some way Answer Date of Assessment Author Not at all 06/03/2025 12:08 PM Paloma Zuniga MA * Patient Health Questionnaire-9 Score Answer Date of Assessment Author 11 06/03/2025 12:08 PM Paloma Zuniga MA * How difficult have these problems made it for you to do your work, take care of things at home, or get along with other people? Answer Date of Assessment Author Very difficult 06/03/2025 12:08 PM Paloma Zuniga MA * Over the last 2 weeks, how often have you been bothered by any of the following problems? Question Answer Date of Assessment Author Feeling nervous, anxious, or on edge 2 06/03/2025 12:08 PM Paloma Jack MA Not being able to stop or control worrying 2 06/03/2025 12:08 PM Paloma Jack MA Worrying too much about different things 2 06/03/2025 12:08 PM Paloma Jack MA Trouble relaxing 2 06/03/2025 12:08 PM Paloma Jack MA Being so restless that it is hard to sit still 2 06/03/2025 12:08 PM EDT Paloma Silvestre MA Becoming easily annoyed or irritable 2 06/03/2025 12:08 PM EDT Paloma Silvestre MA Feeling afraid as if something awful might happen 2 06/03/2025 12:08 PM EDT Paloma Agarwal MA ARSENIO-7 Total Score 14 06/03/2025 12:08 PM EDT Paloma Silvestre MA documented as of this encounter Plan of Treatment Upcoming Encounters Date Type Department Care Team (Late st Contact Info) Description 08/04/2025 9:15 AM EDT Office Visit [address] [address] Karmen Farah DO 230 [place] [address] 08/21/2025 1:15 PM EDT Office Visit [address] [address] Kurt Woodward MD [address] [place] [address] 10/05/2025 10:00 AM EST Office Visit [address] [address] Theodora Cota FNP 230 [place] [address] documented as of this encounter Visit Diagnoses Diagnosis Depression, unspecified depression type documented in this encounter Additional Health Concerns Assessment Noted Time PHQ-9 Depression Total Score: 11 025 12:08 PM EDT documented as of this encounter Care Teams Car Icer Relationship Specialty Start Date End Date Theodora Cota FNP [address] [place] [address] PCP - General Family Medicine 10/18/22 documented as of this encounter
--- OUTSIDE RECORDS SUMMARY | 2025-08-03 18:00 | XMS_ITS | Encounter Summary ---
Author Organization [employer] Address [address] 7t [place] [address] Care Team Providers Care Knife Glazer Name Role Phone Theodora Cota JIG BORING MACHINE SET UP OPERATOR Primary Care Provider [phone] Encounter Details Date Type Department Care Team (Late st Contact Info) Description 06/10/2025 Results Follow-Up [facility] MED[facility]INE 230 [place] [address] Kurt Woodward MD 230 [place] [address] Basic Metabolic Panel, Magnesium, Vitamin B12/Folate, Serum Panel Social History Tobacco Use Types Packs/Day Years [...] Description 08/04/2025 9:15 AM EDT Office Visit [facility] [address] [place] [address] Karmen Farah DO [address] [place] [address] 08/21/2025 1:15 PM EDT Office Visit [address] [address] Kurt Woodward MD [address] [place] [address] 10/05/2025 10:00 AM EST Office Visit [facility] [address] [place] [address] Theodora Cota FNP [address] [place] [address] documented as of this encounter Visit Diagnoses Not on filedocumented in this encounter Additional Health Concerns Assessment Noted Time PHQ-9 Depression Total Score: 11 025 12:08 PM EDT documented as of this encounter Care Teams Knife Glazer Relationship Specialty Start Date End Date Theodora Cota FNP [address] [place] [address] PCP - General Family Medicine 10/18/22 documented as of this encounter
--- OUTSIDE RECORDS SUMMARY | 2025-08-03 18:00 | XMS_ITS | Encounter Summary ---
Author Organization [employer] Address [address] 7t [place] [address] Care Team Providers Care Cheese Weigher Name Role Phone Theodora Cota [facility] Primary Care Provider [phone] Reason for Visit * Reason Comments Med Refill Encounter Details Date Type Department Care Team (Late st Contact Info) Description 01/03/2024 Refill [facility] MEDICINE 230 [place], [place] [phone] Kim Amaya MD 230 [place] [address] Opioid dependence in remission (CMS/HCC) Social History [...] Description 08/04/2025 9:15 AM EDT Office Visit [facility] [address] [place] [address] Karmen Farah DO [address] [place] [address] 08/21/2025 1:15 PM EDT Office Visit [address] [address] Kurt Woodward MD [address] [place] [address] 10/05/2025 10:00 AM EST Office Visit [address] [address] Theodora Cota FNP [address] [place] [address] documented as of this encounter Visit Diagnoses Diagnosis Opioid dependence in remission (CMS/HCC) (HCC) Opioid type dependence, in remission documented in this encounter Additional Health Concerns Assessment Noted Time PHQ-9 Depression Total Score: 0 08/10/20 23 10:11 AM EDT documented as of this encounter Care Teams Cheese Weigher Relationship Specialty Start Date End Date [place] [facility] 230 [place] [address] PCP - General Family Medicine 10/18/22 documented as of this encounter
--- OUTSIDE RECORDS SUMMARY | 2025-08-03 18:00 | XMS_ITS | Encounter Summary ---
Author Organization [employer] Address [address] 7t [place] [address] Care Team Providers Care Hospital Scientist Name Role Phone Theodora Cota GREENHOUSE TECHNICIAN Primary Care Provider [phone] Encounter Details Date Type Department Care Team (Late st Contact Info) Description 09/06/[address] [facility] MEDICINE 230 [place] [address] Tonya Pulido Social History Tobacco Use Types [...] Description 08/04/2025 9:15 AM EDT Office Visit [address] [address] Karmen Farah DO [address] [place] [address] 08/21/2025 1:15 PM EDT Office Visit [address] [address] Kurt Woodward MD [address] [place] [address] 10/05/2025 10:00 AM EST Office Visit [address] [address] [place] [address] [address] documented as of this encounter Procedures Procedure Name Priority Date/Time Associated Diagnosis Comments COLONOSCOPY Routine 07/19/2022 documented in this encounter Results * Colonoscopy (07/19/2022) Colonoscopy Normal Normal Narrative Tonya Pulido - 07/19/2022 Recommended 1 year follow up Historical Provider HEALTH MAINTENANCE Final Result documented in this encounter Visit Diagnoses Not on filedocumented in this encounter Additional Health Concerns Assessment Noted Time PHQ-9 Depression Total Score: 0 08/10/20 23 10:11 AM EDT documented as of this encounter Care Teams Hospital Scientist Relationship Specialty Start Date End Date Theodora Cota FNP 230 [place] [address] PCP - General Family Medicine 10/18/22 documented as of this encounter
--- OUTSIDE RECORDS SUMMARY | 2025-08-03 18:00 | XMS_ITS | Encounter Summary ---
Author Organization [employer] Address [address] [place] [address] Care Team Providers Care Vault Custodian Name Role Phone Theodora Cota LOCAL [place] TRUCK DRIVER Primary Care Provider [phone] Reason for Visit * Reason Comments Med Refill Encounter Details Date Type Department Care Team (Late st Contact Info) Description 07/19/2023 Refill [facility] MEDICINE 230 [place] [address] Kim Amaya MD 230 [place] [address] Uncomplicated opioid dependence (CMS/[facility]) Social History Tobacco Use Types Packs/Day Years [...] Description 08/04/2025 9:15 AM EDT Office Visit [facility] [address] [place] [address] Karmen Farah DO 230 [place] [address] 08/21/2025 1:15 PM EDT Office Visit [address] [phone] Kurt Woodward MD 230 [place] [address] 10/05/2025 10:00 AM EST Office Visit [facility] [address] Theodora Cota FNP 230 [place] [address] documented as of this encounter Visit Diagnoses Diagnosis Uncomplicated opioid dependence (CMS/HCC) (HCC) documented in this encounter Additional Health Concerns Assessment Noted Time PHQ-9 Depression Total Score: 0 04/25/20 23 10:12 AM EDT documented as of this encounter Care Teams Vault Custodian Relationship Specialty Start Date End Date Theodora Cota FNP [address] [place] [address] PCP - General Family Medicine 10/18/22 documented as of this encounter
--- OUTSIDE RECORDS SUMMARY | 2025-08-03 18:01 | XMS_ITS | Encounter Summary ---
Author Organization [employer] Address [address] 7[address] [place] [address] Care Team Providers Care Short Order Cook Name Role Phone Theodora Cota [facility] Primary Care Provider [phone] Reason for Visit * Reason Comments Med Refill Encounter Details Date Type Department Care Team (Late st Contact Info) Description 10/27/2024 Refill [facility] MEDICINE 230 [place], [place] [phone] Name, MD Sudhakar 230 [place] [address] Social History Tobacco Use Types Packs/Day Years [...] Description 08/04/2025 9:15 AM EDT Office Visit [address] [address] Karmen Farah DO [address] [place] [address] 08/21/2025 1:15 PM EDT Office Visit [address] [address] Kurt Woodward MD [address] [place] [address] 10/05/2025 10:00 AM EST Office Visit [address] [address] Theodora Cota FNP [address] [place] [address] documented as of this encounter Visit Diagnoses Not on filedocumented in this encounter Additional Health Concerns Assessment Noted Time PHQ-9 Depression Total Score: 0 02/15/20 24 10:17 AM EDT documented as of this encounter Care Teams Short Order Cook Relationship Specialty Start Date End Date Theodora Cota FNP [address] [place] [address] PCP - General Family Medicine 10/18/22 documented as of this encounter
--- OUTSIDE RECORDS SUMMARY | 2025-08-03 18:01 | XMS_ITS | Clinical Summary ---
Author Organization [employer] Address [address] [place] [address] Care Team Providers Care Drawer In Jacquard Loom Name Role Phone Theodora Cota [facility] Primary Care Provider [phone] Allergies Active Allergy Reactions Criticality Noted Date Comments Nitrofurantoin Hives 11/18/2021 Other reaction(s): Hives / Skin Rash Medications FLUoxetine (PROzac) 40 MG capsuleIndicati ons:Depression, unspecified depression type Take 1 capsule (40 mg) by mouth in the morning. 90 capsule 3 12/05/19 25 2025 Active atomoxetine (Strattera) 40 MG capsuleIndicati ons:Attention deficit TAKE 2 CAPSULES BY MOUTH EVERY DAY 180 capsule 3 12/25/19 25 Active hydroCHLOROthia zide (HYDRODiuril) 25 MG tabletIndicatio ns:Essential hypertension TAKE 1 TABLET BY MOUTH EVERY DAY 90 tablet 2 05/05/20 25 Active loratadine (Claritin) 10 MG tabletIndicatio ns:Seasonal allergies TAKE 1 TABLET BY MOUTH EVERY DAY 90 tablet 2 05/05/20 25 Active cyanocobalamin (Vitamin B-12) 1000 MCG tabletIndicatio ns:Essential hypertension TAKE 1 TABLET BY MOUTH EVERY DAY 90 tablet 2 05/11/20 25 Active traZODone (Desyrel) 50 MG tabletIndicatio ns:Depression, unspecified depression type Take 1 tablet (50 mg) by mouth at bedtime. 30 tablet 3 06/03/20 25 Active clonazePAM (KlonoPIN) 0.5 MG tabletIndicatio ns:Depression, unspecified depression type Take 1 tablet (0.5 mg) by mouth if needed in the morning and at bedtime for anxiety. 56 tablet 07/24/20 25 Active naltrexone (Depade) 50 MG tabletIndicatio ns:Severe alcohol use disorder (CMS/HCC) (HCC),Uncomplic ated opioid dependence (CMS/HCC) (HCC) Take 1 tablet (50 mg) by mouth Once per day. 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 TAKE 1 TABLET BY MOUTH EVERY DAY BEFORE BREAKFAST 90 tablet 1 07/31/20 25 Active olmesartan (BENIcar) 5 MG tabletIndicatio ns:Essential hypertension TAKE 1 TABLET BY MOUTH EVERY DAY 90 tablet 3 07/31/20 25 Active Deep Sea Nasal Basehor 0.65 % nasal spray USE 1-2 SPRAYS IN EACH NOSTRIL EVERY 2-3 HOURS NEEDED FOR NASAL CONGESTION 04/17/20 22 2024 Discontinued simethicone (Simethicone Ultra Strength) 180 MG capsuleIndicati ons:Dyspepsia TAKE 1 CAPSULE BY MOUTH FOUR TIMES DAILY WITH MEALS AND AT BEDTIME NEEDED 90 capsule 3 02/15/20 24 2024 Discontinued estradiol (Estrace) 0.1 MG/GM vaginal creamIndication s:Vaginal dryness, menopausal Insert 0.5g vaginally every night for 2 weeks. Then continue 3x weekly 42.5 g 2 08/06/20 24 2024 Discontinued olmesartan (Benicar) 5 MG tabletIndicatio ns:Essential hypertension Take 1 tablet (5 mg) by mouth Once per day. 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 Start with 1/2 tablet (=25mg) PO daily for the first 4 days; then increase to 1 tablet (=50mg) daily (PLEASE DISCONTINUE ACAMPROSATE) 30 tablet 2 05/01/20 25 2024 Discontinued(R eorder (will not trigger notification to Pharmacy)) FLUoxetine (PROzac) 10 MG capsuleIndicati ons:Depression, unspecified depression type Take 10 mg by mouth Once per day. With 40mg capsule 2024 Discontinued(M ed list cleanup (will not trigger notification to Pharmacy)) clonazePAM (KlonoPIN) 0.5 MG tabletIndicatio ns:Depression, unspecified depression type Take 1 tablet (0.5 mg) by mouth if needed in the morning and at bedtime for anxiety. 56 tablet 06/03/20 25 2024 Discontinued(R eorder (will not trigger notification to Pharmacy)) Active Problems Problem Noted Date Diagnosed Date Raynaud's phenomenon without gangrene 12/09/2024 Healthcare maintenance 08/10/2023 Overview (08/10/2023): Mammo: 02/2022- birads 1; repeat ordered 04/2023 Pap: 07/2019 with SHAUNA Noble, NIL HPV negative. C-scope: 06/2022, repeat 1 year due to poor prep and internal hemorrhoid ([facility] [place]) BMD: Routine age 65 Accepts routine screening Assessment & Plan (08/28/2023 6:18 PM EST): Resubmit referral to GI for repeat colonoscopy ADHD 08/10/2023 Overview (08/10/2023): Strattera Acquired hallux valgus 04/26/2023 CTS (carpal tunnel syndrome) 04/25/2023 Essential hypertension 11/14/2022 Overview (08/28/2023): Hydrochlorothiazide 25mg Maintenance: BMP: 04/2023 Lipid Panel: [...] Assessment & Plan (08/28/2023 6:17 PM EST): Well controlled Continue current regimen Opioid dependence 11/14/2022 Hyperkalemia 02/11/2019 Other specified hypothyroidism 02/11/2019 Overview (08/28/2023): Levothyroxine 88mcg Assessment & Plan (08/28/2023 6:17 PM EST): Continue current regimen Will repeat TSH Vitamin D deficiency 02/11/2019 [...] Encounters Date Type Department Care Team Description 08/03/2025 3:30 PM EDT Office Visit [facility] [address] [place] [phone] Paige Soto, PK Vaginal discharge (Primary Dx) 08/03/2025 Travel 07/31/2025 Refill [facility] [address] [facility] [place] [address] Theodora Cota FNP 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; Essential hypertension 07/30/2025 Telephone [facility] [address] [place] [address] Shayy Cabral, RN Nurse Triage 07/30/2025 Telephone [facility] [address] [place] [address] BeataTheodora garcia FNP Chart Prep 07/29/2025 Telephone [facility] [address] [place] [address] Taina Calvo, Tonie 07/28/2025 Travel 07/24/2025 1:00 PM EDT Office Visit [facility] [address] [place] [address] Kurt Woodward MD Severe alcohol use disorder (CMS/HCC) (HCC) (Primary Dx); Uncomplicated opioid dependence (CMS/HCC) (HCC) 07/24/2025 Travel 07/22/2025 Refill [facility] [address] [place] [address] Theodora Cota FNP Attention deficit 07/22/2025 Refill [facility] [address] [place] [address] Theodora Cota [facility] Depression, unspecified depression type 07/22/2025 Refill [facility] [address] [place] [address] Theodora Cota FNP Depression, unspecified depression type 07/16/2025 Telephone [facility] [address] [place] [address] Jason Vo, LEANNE AUD communication 07/15/2025 Patient Outreach [facility] [address] [place], [place] [phone] Theodora Cota FNP Transition Of Care (Tcm) (HDF scheduled) 07/07/2025 Telephone [facility] [address] [place] [address] Theodora Cota FNP Vivotrol Injection 07/07/2025 Telephone [facility] [address] [facility] [place] [address] Silvia Garcia MA 06/15/2025 Telephone [facility] [address] [facility] [place] [address] Arnulfo Gunn RN 06/10/2025 Results Follow-Up [address] [place] [address] Kurt Woodward MD Basic Metabolic Panel, Magnesium, Vitamin B12/Folate, Serum Panel 06/05/2025 Results Follow-Up [facility] [address] [facility] [place] [address] Theodora Cota FNP TSH 06/03/2025 11:00 AM EDT Office Visit [facility] [place] [address] Theodora Cota FNP Grief (Primary Dx); Depression, unspecified depression type; Encounter for immunization; Anxiety; Essential hypertension 06/03/2025 Refill [facility] [place] [address] Theodora Cota FNP Depression, unspecified depression type 06/03/2025 Travel 06/02/2025 Telephone [facility] [place] [address] Theodora Cota FNP Chart Prep 06/02/[address] [address] Theodora Cota FNP call back request 05/22/2025 Telephone [facility] [address] Kurt Woodward MD 05/22/2025 Telephone [facility] [place] [address] Theodora Cota FNP provider out 05/2205/19/2025 [address] [place] [address] Kim Amaya MD Med Refill 05/18/2025 [address] [facility] [place] [address] Theodora Cota FNP Letter for School/Work 05/14/2025 Telephone [facility] [address] [place] [address] Theodora Cota FNP chart prep 05/14/2025 Refill [facility] [address] [place] [address] Arnulfo Gunn RN Restless leg syndrome 05/11/2025 Patient Outreach [facility] [address] [place], [place] [phone] Theodora Cota FNP Pre-visit Planning (SDOH unable to reach LVM) 05/10/2025 Refill [facility] [address] [place], [place] [phone] Theodora Cota FNP Essential hypertension 05/06/2025 4:30 PM EDT Telemedicine [facility] [address] [place] [address] Kurt Woodward MD Restless leg syndrome (Primary Dx) 05/06/2025 Travel 05/03/2025 Refill [facility] [address] [place], [place] [phone] Theodora Cota FNP Essential hypertension; Seasonal allergies from Last 3 Months Immunizations Immunization Administration Dates Next Due DT (pediatric) 06/18/2006 INFLUENZA VACCINE QUADRIVALE NT RECOMBINANT PRESERVATIVE FREE RIV4 09/30/2022 Influenza injectable quadriv alent IIV4 with preservative 08/01/2018 Influenza injectable quadriv alent preservative free 08/10/2023,09/08/2020,11/05/2017,07/17 Influenza, seasonal, injecta ble, preservative free 08/06/2024 Influenza, seasonal, intrade rmal, preservative free 08/11/2013 Pfizer Covid-19 Vaccine 12+ 08/06/2024 Pneumococcal Conjugate PCV 20 06/03/2025 Pneumococcal Polysaccharide PPSV23 08/11/2013 Tdap 09/21/2020,08/11/2013 Zoster, [...] Mass Index 25.71 08/03/2025 3:24 PM EDT Plan of Treatment Upcoming Encounters Date Type Department Care Team (Late st Contact Info) Description 08/04/2025 9:15 AM EDT Office Visit [facility] [address] [place] [phone] Karmen Farah DO [address] [place] [address] 08/21/2025 1:15 PM EDT Office Visit [address] [address] Kurt Woodward MD [address] [place] [address] 10/05/2025 10:00 AM EST Office Visit [address] [address] VictorTheodora, [facility] [address] [place] [address] Health Maintenance Due Date Last Done Comments CT Colonography 1970 FIT 1970 Sigmoidoscopy 1970 Hepatitis B Vaccines (1 of 3 - 19+ 3-dose series) 1989 Pap Smear 1991 Mammogram 02/24/2024 02/23/2022, 02/23/2022 Cervical Cancer Screening 07/22/2024 HPV/Cotest 07/22/2024 07/30/2019 FOBT 03/12/2025 03/12/2024 Influenza Vaccine (#1) 2025 , 08/10/2023, 09/30/2022, Additional history exists Depression Monitoring 12/04/2025 06/03/2025, 025 Alcohol/Substance Use Screening 04/02/2026 04/02/2025 SDOH Screening 04/02/2026 04/02/2025 Disability Screening 07/28/2026 07/28/2025 Tobacco Screening 08/03/2026 08/03/2025 Colorectal Cancer Screening 02/19/2027 FIT DNA/Cologuard 02/19/2027 03/12/2024 Lipid Panel 08/06/2029 08/06/2024, 0706/2023, 07/23/2020 DTaP/Tdap/Td Vaccines (3 - Td or Tdap) 09/21/2030 09/21/2020, 08/11/2013, 06/18/2006 Colonoscopy 07/19/2032 07/19/2022, 07/19/2022 RSV Patients and Patients Aged 60 years or older (1 - 1-dose 75+ series) 2045 Zoster Vaccines Completed 10/10/2023, 08/10/2023 COVID-19 Vaccine Completed 08/06/2024, , 09/23/2021, Additional history exists HIV Screening Completed 08/06/2024, 05/09/2023 Hepatitis C Screening Completed 06/03/2025, 023 Pneumococcal Vaccine: 50+ Years Completed 06/03/2025, 08/11/2013 HIB Vaccines Aged Out No longer eligi [...] patient's age to complete this topic Meningococcal B Vaccine Aged Out No l onger eligible based on patient's age to complete [...] Procedure Name Priority Date/Time Associated Diagnosis Comments POCT PAULINA-14 URINE DRUG SCREEN Routine 07/24/2025 1:28 PM EDT Severe alcohol use disorder (CMS/HCC) (HCC) VITAMIN B12/FOLATE, SERUM PANEL Routine 06/03/2025 12:17 PM EDT Restless leg syndrome MAGNESIUM Routine 06/03/2025 12:17 PM EDT Restless leg syndrome BASIC METABOLIC PANEL Routine 06/03/2025 12:17 PM EDT Restless leg syndrome HEPATIC FUNCTION PANEL Routine 06/03/2025 12:17 PM EDT Opioid type dependence, continuous (CMS/HCC) HEPATITIS C AB W/REFL TO HCV RNA, QN, PCR Routine 06/03/2025 12:17 PM EDT Opioid type dependence, continuous (CMS/HCC) HEPATITIS A ANTIBODY, TOTAL Routine 06/03/2025 12:17 PM EDT Opioid type dependence, continuous (CMS/HCC) TSH Routine 06/03/2025 12:17 PM EDT 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 HIV 1/2 ANTIGEN/ANTIBODY, FOURTH GENERATION W/RFL Routine 08/06/2024 11:35 AM EDT Routine screening for STI (sexually transmitted infection) LIPID PANEL, STANDARD Routine 08/06/2024 11:35 AM EDT Essential hypertension LAB COLOGUARD COLON CANCER SCREEN Routine 03/12/2024 8:00 PM EDT Encounter for screening for malignant neoplasm of colon HM COLONOSCOPY Routine 07/19/2022 11:49 AM EDT HM MAMMOGRAPHY Routine 02/23/2022 11:48 AM EDT ZZZ HISTORICAL HPV MRNA E6/E7 Routine 07/30/2019 9:44 AM EDT from Last 3 Months or Most Recently Relevant to Health Maintenance Results * POCT PAULINA-14 Urine Drug Screen (07/24/2025 1:28 PM EDT) THC Negative Negative Cocaine Screen, Urine Negative Negative Opiate Screen, Urine Negative Negative Methamphetamine Screen Urine Negative Negative Amphetamine Screen, Urine Negative Negative Benzodiazepines Screen, Urine Negative Negative Barbiturate Screen, Urine Negative Negative Methadone Screen, Urine Negative Negative Buprenophine Screen, Urine Negative Negative TCA, Urine Negative Negative MDMA Urine Negative Negative ng/mL Oxycodone Screen, Urine Negative Negative Phencyclidine (PCP), Urine Negative Negative Fentanyl, Urine Negative Negative Urine Urine specimen obtained by clean catch procedure / Unknown 07/24/2025 1:28 PM EDT Kurt Woodward MD POINT OF CARE TEST ENTER/EDIT OR DERABLES Final Result * (ABNORMAL) Vitamin B12/Folate, Serum Panel (06/03/2025 12:17 PM EDT) [facility] Vitamin B12 >2,000(H ) 200 - 900 pg/mL [facility] Comment:NORMAL 200-900 PG/ML INDETERMINATE 160-199 PG/ML DEFICIENT < 160 PG/ML Folate 15.0 > or = 4.0 ng/mL [facility] Comment:Reference Values:> o r = 4.0 ng/mL< 4.0 ng/mL suggests folate deficiency Methotrexate, aminopterin and folinic acid(leucovorin) are chemotherapeutic agents whose molecularstructures are similar to folate; therefore, the Architectfolate assay cannot be used for patients using these drugs. Blood Venous blood specimen / Unknown 06/03/2025 12:17 PM EDT 06/03/2025 1:32 PM EDT Kurt Woodward MD LAB BLOOD ORDERABLES Final Resul t [facility] [address] [place] [phone] * Hepatitis C Antibody with Reflex to HCV, RNA, Quantitative, Real-Time PCR (06/03/2025 12:17 PM EDT) [facility] Hepatitis C Antibody Nonreactive Nonreactive [facility] Comment:Antibodies to HCV no t detected; does not exclude early acuteHCV infection. Blood Venous blood specimen / Unknown 06/03/2025 12:17 PM EDT 06/03/2025 1:32 PM EDT Kim Amaya MD LAB BLOOD ORDERABLES Final R esult Performing Organization Address [facility]/ZIP Co de Phone Number [facility] [address] [place] [phone] * Hepatitis A Antibody, Total (06/03/2025 12:17 PM EDT) Hepatitis A Antibody IgG Nonreactive Nonreactive [facility] Blood Venous blood specimen / Unknown 06/03/2025 12:17 PM EDT 06/03/2025 1:32 PM EDT Kim Amaya MD LAB BLOOD ORDERABLES Final R esult Performing Organization Address [facility] Co de Phone Number [facility] [address] [place] [phone] * TSH (06/03/2025 12:17 PM EDT) Thyroid Stimulating Hormone 1.11 0.32 - 4.0 uIU/mL [facility] Comment:TSH 3rd Generation ( [facility]) Blood Venous blood specimen / Unknown 06/03/2025 12:17 PM EDT 06/03/2025 1:32 PM EDT [facility] LAB BLOOD ORDERABLES Final Re sult Performing Organization Address [facility] Co de Phone Number [facility] [address] [place] [phone] * Magnesium (06/03/2025 12:17 PM EDT) Magnesium 2.2 1.6 - 2.6 mg/dL [facility] Blood Venous blood specimen / Unknown 06/03/2025 12:17 PM EDT 06/03/2025 1:32 PM EDT Kurt Woodward MD LAB BLOOD ORDERABLES Final Resul t Performing Organization Address City/[facility]/ZIP Co de Phone Number [facility] [address] [place] [phone] * Hepatic Function Panel (06/03/2025 12:17 PM EDT) Bilirubin, Total 0.3 0.0 - 1.0 mg/dL [facility] Bilirubin, Direct 0.1 0.0 - 0.5 mg/dL [facility] Aspartate Amino Transferase 20 5 - 31 U/L [facility] Alanine Aminotransferase 13 0 - 31 U/L [facility] Total Protein 7.3 6.5 - 8.0 g/dL [facility] Albumin Level 4.6 3.5 - 5.0 g/dL [facility] Alkaline Phosphatase 67 39 - 117 U/L [facility] Blood Venous blood specimen / Unknown 06/03/2025 12:17 PM EDT 06/03/2025 1:32 PM EDT Kim Amaya MD LAB BLOOD ORDERABLES Final R esult Performing Organization Address [facility]/ZIP Co de Phone Number [facility] [address] [place] [phone] * (ABNORMAL) Basic Metabolic Panel (06/03/2025 12:17 PM EDT) Sodium 140 135 - 145 mmol/L [facility] Potassium 3.9 3.3 - 5.1 mmol/L [facility] Chloride 101 96 - 108 mmol/L [facility] Carbon Dioxide 29 22 - 29 mmol/L [facility] Anion Gap 14 12 - 20 [facility] Urea Nitrogen (BUN) 17(H) 9 - 16 mg/dL [facility] Creatinine, Serum 0.86 0.5 - 1.4 mg/dL [facility] Estimated Glomerular Filt Rate >60 [facility] Comment:Chronic Kidney Disea se: Estimated GFR < 60 mL/min/1.60s7Jegvya Kidney Disease: Estimated GFR < 15 mL/min/1.73m2 Glucose 103 60 - 115 mg/dL [facility] Calcium 9.5 8.4 - 10.2 mg/dL [facility] Blood Venous blood specimen / Unknown 06/03/2025 12:17 PM EDT 06/03/2025 1:32 PM EDT Kurt Woodward MD LAB BLOOD ORDERABLES Final Resul t [facility] [address] [place] [phone] * HIV-1/2 Antigen and Antibodies, Fourth Generation, with Reflexes (08/06/2024 11:35 AM EDT) [facility] HIV AB/AG Nonreactive Nonreactive [facility] Comment:HIV-1 p24 Ag and/or HIV-1/HIV-2 Ab not detected.A test result that is nonreactive does not exclude thepossibility of exposure to or infection with HIV-1 and/orHIV-2. Nonreactive results in this assay for individualswith prior exposure to HIV-1 and/or HIV-2 may be due toantigen and antibody levels that are below the limit ofdetection of this assay.[employer] HIV Ag/Ab Combo assay result andsupplemental assay results should be interpreted inconjunction with the patient's clinical presentation,history and other laboratory results. If the results areinconsistent with clinical evidence, additional testing issuggested to confirm the result. Blood Venous blood specimen / Unknown 08/06/2024 11:35 AM EDT 08/06/2024 1:16 PM EDT [facility] LAB BLOOD ORDERABLES Final Re sult Performing Organization Address City/State/[facility] Co de Phone Number [facility] [address] [place] [phone] * (ABNORMAL) Lipid Panel, Standard (08/06/2024 11:35 AM EDT) Triglycerides 80 <150 mg/dL [facility] Comment:Desirable Triglyceri de: less than 150 mg/dLBorderline High Triglyceride 150-199 mg/dLHigh Triglyceride: 200-499 mg/dLVery High Triglyceride: greater than or equal to 5OO mg/dL Cholesterol 231(H) <200 mg/dL [facility] Comment:Desirable Cholestero l: less than 200 mg/dLBorderline High Cholesterol: 200-239 mg/dLHigh Cholesterol: greater than 239 mg/dL LDL Cholesterol Calculated 130(H) <100 mg/dL [facility] Comment:Desirable LDL: less than 100 mg/dLNear Optimal/Above Optimal LDL: 110- 129 mg/dLBorderline High LDL: 130-159 mg/dLHigh LDL: 160-189 mg/dLVery High LDL: greater than or equal to 190 mg/dL HDL Cholesterol 85 >40 mg/dL [facility] Comment:Desirable HDL: great er than 40 mg/dL Note: This HDL assay may give artificially low results in patients with liver disease. Blood Venous blood specimen / Unknown 08/06/2024 11:35 AM EDT 08/06/2024 1:16 PM EDT [facility] LAB BLOOD ORDERABLES Final Re sult [facility] [address] [place] [phone] * Cologuard?? colon cancer screening (03/12/2024 8:00 PM EDT) Cologuard Result Negative Negative 03/19/20 24 1:18 AM EDT [employer] (CLIA #:[id number]) Comment: NEGATIVE TEST RESULT. A negative Cologuard result indicates a low likelihood that a colorectal cancer (CRC) or advanced adenoma (adenomatous polyps with more advanced pre-malignant features) is present. The chance that a person with a negative Cologuard test has a colorectal cancer is less than 1 in 1500 (negative predictive value >99.9%) or has an advanced adenoma is less than 5.3% (negative predictive value 94.7%). These data are based on a prospective cross-sectional study of 10,000 individuals at average risk for colorectal cancer who were screened with both Cologuard and colonoscopy. (Anthony Ackerman al, N Engl J Med 2014;370(14):3341-4412) The normal value (reference range) for this assay is negative. COLOGUARD RE-SCREENING RECOMMENDATION: Periodic colorectal cancer screening is an important part of preventive healthcare for asymptomatic individuals at average risk for colorectal cancer. Following a negative Cologuard result, the [place] [employer] Society and U.S. Multi-Society Task Force screening guidelines recommend a Cologuard re-screening interval of 3 years. References: [employer] Guideline for Colorectal Cancer Screening: https://www.cancer.org/cancer/wzdhi-eyfoau-zqsrzm/bxoelnhjv-cxcmpmjbu-mmaykwo/ac s-rec ommendations.html.; Anjel DK, Kim CR, Sepideh FoleyK, Colorectal Cancer Screening: Recommendations for Physicians and Patients from the U.S. Multi-Society Task Force on Colorectal Cancer Screening , Am J Gastroenterology 2017; 112:5104-6502. TEST DESCRIPTION: Composite algorithmic analysis of stool DNA-biomarkers with hemoglobin immunoassay. Quantitative values of individual biomarkers are not [...] screened with both Cologuard and colonoscopy. (Anthony Ackerman al, N Engl J Med 2014;370(14):3953-7058.) Cologuard may produce a false negative or false positive result (no colorectal cancer or precancerous polyp present at colonoscopy follow up). A negative Cologuard test result does not guarantee the absence of CRC or advanced adenoma (pre-cancer). The current Cologuard screening interval is every 3 years. ([place] [employer] and U.S. Multi-Society Task Force). Cologuard performance data in a 10,000 patient pivotal study using colonoscopy as the reference method can be accessed at the following location: www.mig33.[employer]/results. Additional description of the Cologuard test process, warnings and precautions can be found at www.[employer]ide[employer]rd.[employer]. Stool specimen (specimen) 03/12/2024 8:00 PM EDT 03/14/2024 11:24 AM EDT [facility] LAB MOLECULAR DIAGNOSTICS ORD ERABLES Final Result [employer] (CLIA #:[id number]) [place] [address], * Colonoscopy (07/19/2022 11:49 AM EDT) Colonoscopy Normal Normal Conner Art MD HEALTH MAINTENANCE Final Res ult * Mammography (02/23/2022 11:48 AM EDT) Pathologist [facility] [facility] [place] Mammogram Bi rads 1 Neg Anatomical Region Laterality Modality Other Conner Art MD HEALTH MAINTENANCE Final Res ult * HPV mRNA E6/E7 (07/30/2019 9:44 AM EDT) Pathologist [facility] HPV mRNA E6/E7 Not Detected NOT DETECTED [facility] Comment: This test was performed using the APTIMA(R) HPV Assay ([employer] This assay detects E6/E7 viral messenger RNA (mRNA) from 14 high-risk HPV types (16,18,31,33,35,39,45,51, 52,56,58,59,66,68). For additional information please refer to: http://education.Groupe-Allomedia/faq/CYK048k6 (This link is being provided for informational/ educational purposes only.) The analytical performance characteristics of this assay have been determined by [employer] [place], [place]. The modifications have not been cleared or approved by the FDA. This assay has been validated pursuant to the CLIA regulations and is used for clinical purposes. Test Performed by [employer] [place], [facility] [place], [address] [place] [address] Derrick Flynn M.D., Ph.D., Director of Laboratories , CLIA [id number] Please note: Effective 07/03/2016, HPV testing will be performed using [employer]'s APTIMA test which targets mRNA. Detecting mRNA instead of DNA, as in older methods, offers significant improvements in specificity. 07/30/2019 9:44 AM EDT us Beverley Noble CNM HISTORICAL/NON ORDERABLE LABS Final Result [facility] [address] from Last 3 Months or Most Recently Relevant to Health Maintenance [place] [address] [address] [facility] 3 Care Teams Drawer In Jacquard Loom Relationship Specialty Start Date End Date Theodora Cota FNP [address] [place] [address] PCP - General Family Medicine 10/18/22
--- OUTSIDE RECORDS SUMMARY | 2025-08-03 18:01 | XMS_ITS | Encounter Summary ---
Author Organization [email or web address] Address [address] [facility] [address] 7t [place] [address] Care Team Providers Care Auto Headlight Mechanic Name Role Phone [place] [facility] Primary Care Provider [phone] Reason for Visit * Reason Onset Date Comments Med Refill 10/24/2024 Encounter Details Date Type Department Care Team (Late st Contact Info) Description 10/24/2024 Refill [facility] 230 [place], [place] [phone] [place] [facility] 230 [place] [address] Social History Tobacco Use Types Packs/Day Years [...] Description 08/04/2025 9:15 AM EDT Office Visit [address] [address] Karmen Farah DO [address] [place] [address] 08/21/2025 1:15 PM EDT Office Visit [address] [address] Kurt Woodward MD [address] [place] [address] 10/05/2025 10:00 AM EST Office Visit [address] [address] Theodora Cota FNP [address] [place] [address] documented as of this encounter Visit Diagnoses Not on filedocumented in this encounter Additional Health Concerns Assessment Noted Time PHQ-9 Depression Total Score: 0 02/15/20 24 10:17 AM EDT documented as of this encounter Care Teams Auto Headlight Mechanic Relationship Specialty Start Date End Date Theodora Cota, FARAZ 230 [place] [address] PCP - General Family Medicine 10/18/22 documented as of this encounter
--- OUTSIDE RECORDS SUMMARY | 2025-08-03 18:01 | XMS_ITS | Encounter Summary ---
Author Organization [employer] Address 75 [facility] [address] 7t [place] [address] Care Team Providers Care Info Analyst Name Role Phone Theodora Cota [facility] Primary Care Provider [phone] Reason for Visit * Reason Comments Med Change Request Encounter Details Date Type Department Care Team (Late st Contact Info) Description 07/23/2024 Refill [facility] 230 [place] [address] Kim Amaya MD 230 [place] [address] Social History Tobacco Use Types Packs/Day Years [...] Description 08/04/2025 9:15 AM EDT Office Visit [address] [address] Karmen Farah DO [address] [place] [address] 08/21/2025 1:15 PM EDT Office Visit [address] [address] Kurt Woodward MD [address] [place] [address] 10/05/2025 10:00 AM EST Office Visit [address] [address] Theodora Cota FNP [address] [place] [address] documented as of this encounter Visit Diagnoses Not on filedocumented in this encounter Additional Health Concerns Assessment Noted Time PHQ-9 Depression Total Score: 0 02/15/20 10:17 AM EDT documented as of this encounter Care Teams Info Analyst Relationship Specialty Start Date End Date Theodora Cota FNP 230 [place] [address] PCP - General Family Medicine 10/18/22 documented as of this encounter
[2025-08-04 06:04] LABS: CT PCR Urine NOT DETECTED (Not Detect.); NG PCR Urine NOT DETECTED (Not Detect.)
[2025-08-04 22:00] LABS: Bacterial Vaginosis PCR POSITIVE (Negative); Candida Group PCR NOT DETECTED (Not Detect); Candida glab krusei PCR NOT DETECTED (Not Detect); Trichomonas vaginalis PCR NOT DETECTED (Not Detect)
== END 2025-08-03 17:58 | disposition home or self-care (01) ==
LOC: HO.HHCLNP 17:57
PROVIDERS: Visit Provider Nurse Practitioner Family
DX: N89.8 Other specified noninflammatory disorders of vagina (principal); Z20.2 Contact with and (suspected) exposure to infections with a predominantly sexual mode of transmission
CPT/HCPCS: 81515; 87491; 87591

== ENCOUNTER 2025-08-04 09:53 | Outpatient (REF) | payer OTHER, SELFPAY ==
--- OUTSIDE RECORDS SUMMARY | 2025-08-03 15:30 | XMS_ITS | Encounter Summary ---
Author Organization [employer] Address [address] [facility] [address] [place] [address] Care Team Providers Care Caterers Helper Name Role Phone Theodora Cota [facility] Primary Care Provider Reason for Referral * Consultation (Routine) - Pending Review Specialty Diagnoses / Procedures Referred By Simeon kan Referred To Contact Obstetrics and Gynecology Diagnoses Vaginal discharge Paige Soto NP [address] [place] [address] Phone: tel: fax: Referral ID Status Reason Start Date Expiration Date Visits Requested Visits Authorized [id number] Pending Review Specialty Services Required 08/03/2026 1 1 Encounter Details Date Type Department Care Team (Late st Contact Info) Description 08/03/2025 3:30 PM EDT Office Visit [facility] MEDICINE [address] [place], [place] [phone] Paige Soto NP [address] [place], [place] [phone] Vaginal discharge (Primary Dx) Social History Tobacco [...] rule out vaginitis Will send her to [facility] due to microscopic lesion found on the right introitus Will contact her with the plan for treatment based on the urine and vaginosis panel. Continue on the proper vaginal hygiene. Orders: Chlamydia/N. Gonorrhoeae, PCR, Urine Bacterial Vaginosis Panel Referral to Obstetrics / Gynecology; Future Current Medications[4] [facility] Att[facility] Resident Attestation: Patient was seen and evaluated by Jessa RUTH, in collaboration with Paige Soto [facility] who hasreviewed my assessment and plan. I, Paige Soto [facility] , have reviewed the resident's note and [...] Care Team (Late st Contact Info) Description 08/21/2025 1:15 PM EDT Office Visit [facility] MEDICINE [address] [place] [phone] Kurt Woodward MD [address] [place] [address] 10/05/2025 10:00 AM EST Office Visit [facility] MEDICINE [address] [place] [phone] Theodora Cota FNP [address] [place] [address] Scheduled Orders Name Type Priority Associated Diagnoses Orde r Schedule Bacterial Vaginosis Panel Microbiology Routine Vaginal discharge Ordered: 08/03/2025 Scheduled Referrals Name Type Priority Associated Diagnoses Order Schedule Referral to Obstetrics / Gynecology Outpatient Referral Routine Vaginal discharge Expected: 08/03/2025 (Approximate), Expires: 08/03/2026 documented as of this encounter Procedures Procedure Name Priority Date/Time Associated Diagnosis Comments CHLAMYDIA/TRICHOMON /NEISSERIA GONORRHOEAE, PCR, URINE Routine 08/03/2025 12:00 AM EDT Vaginal discharge documented in this encounter Results * Chlamydia/N. Gonorrhoeae, PCR, Urine (08/03/2025 12:00 AM EDT) CT PCR, Urine NOT DETECTED Not Detect. [facility] Comment:A not detected test result does not exclude the possibilityof infection because test results can be affected byimproper specimen collection, concurrent antibiotic therapy,or the number of organisms in the specimen which may bebelow the sensitivity of the test. As with many diagnostictests, results from the Xpert CT/NG assay should beinterpreted in conjunction with other laboratory andclinical data available to the clinician.The Xpert CT/NG assay should not be used for the evaluationof suspected sexual abuse or for other medico-legalindications. Additional testing is recommended in anycircumstance when false positive or false negative resultscould lead to adverse medical, social or psychologicalconsequences. NG PCR, Urine NOT DETECTED Not Detect. [facility] Comment:A not detected test result does not exclude the possibilityof infection because test results can be affected byimproper specimen collection, concurrent antibiotic therapy,or the number of organisms in the specimen which may bebelow the sensitivity of the test. As with many diagnostictests, results from the Xpert CT/NG assay should beinterpreted in conjunction with other laboratory andclinical data available to the clinician.The Xpert CT/NG assay should not be used for the evaluationof suspected sexual abuse or for other medico-legalindications. Additional testing is recommended in anycircumstance when false positive or false negative resultscould lead to adverse medical, social or psychologicalconsequences. Urine (Urine, Random) 08/03/2025 08/03/2025 us Paige Graef [facility] URINE ORDERABLES Final Resul t [facility] [address] [place] [phone] documented in this encounter Visit Diagnoses Diagnosis Vaginal discharge- Primary Leukorrhea, not specified as infective documented in this encounter Additional Health Concerns Assessment Noted Time PHQ-9 Depression Total Score: 11 06/03/ 025 12:08 PM EDT documented as of this encounter Care Teams Caterers Helper Relationship Specialty Start Date End Date Theodora Cota FNP [address] [place] [phone] PCP - General Family Medicine 10/18/22 documented as of this encounter
--- OUTSIDE RECORDS SUMMARY | 2025-08-04 09:15 | XMS_ITS | Encounter Summary ---
Author Organization [employer] Address [address] [facility] [address] 7t [place] [address] Care Team Providers Care Coke Handling Supervisor Name Role Phone Theodora Cota MOLDER OPERATOR Primary Care Provider [phone] Reason for Visit * Reason Comments hospital follow up Encounter Details Date Type Department Care Team (Late st Contact Info) Description 08/04/2025 9:15 AM EDT Office Visit [facility] 230 [place], [place] [phone] Karmen Farah DO 230 [place], [place] [phone] Essential hypertension (Primary Dx); Encounter for vaccination; Encounter for immunization Social History Tobacco Use Types Packs/Day Years [...] Sign Reading Time Taken Comments Blood Pressure 124/80 08/04/2025 9:12 AM EDT Pulse 84 08/04/2025 9:12 AM EDT Temperature 36.4 C (97.5 F) 08/04/2025 9:12 AM EDT Respiratory Rate 18 08/04/2025 9:12 AM EDT Oxygen Saturation - - Inhaled Oxygen Concentration - - Weight 66 kg (145 lb 6.4 oz) 08/04/2025 9:12 AM EDT Height 160 cm (5' 3 ) 08/04/2025 9:12 AM EDT Body Mass Index 25.76 08/04/2025 9:12 AM EDT documented in this encounter Plan of Treatment Upcoming Encounters Date Type Department Care Team (Late st Contact Info) Description 08/21/2025 1:15 PM EDT Office Visit [facility] 230 [place] [address] Kurt Woodward MD 230 [place] [address] 10/05/2025 10:00 AM EST Office Visit [facility] 230 [place] [address] Beata TheodoraFARAZ 230 [place] [address] Scheduled Orders Name Type Priority Associated Diagnoses Orde r Schedule T4, Free Lab Routine Essential hypertension Expected: 08/04/2025 (Approximate), Expires: 08/04/2026 Vitamin D, 25-Hydroxy, Total, Immunoassay Lab Routine Essential hypertension Expected: 08/04/2025 (Approximate), Expires: 08/04/2026 Lipid Panel, Standard Lab Routine Essential hypertension Expected: 08/04/2025 (Approximate), Expires: 08/04/2026 TSH Lab Routine Essential hypertension Expected: 08/04/2025 (Approximate), Expires: 08/04/2026 Hepatic Function Panel Lab Routine Essential hypertension Expected: 08/04/2025 (Approximate), Expires: 08/04/2026 Hemoglobin A1c Lab Routine Essential hypertension Expected: 08/04/2025 (Approximate), Expires: 08/04/2026 Basic Metabolic Panel Lab Routine Essential hypertension Expected: 08/04/2025 (Approximate), Expires: 08/04/2026 CBC Lab Routine Essential hypertension Expected: 08/04/2025, Expires: 08/04/2026 Albumin, Random Urine W/Creatinine Lab Routine Essential hypertension Expected: 08/04/2025 (Approximate), Expires: 08/04/2026 Vitamin B12 (Cobalamin) and Folate Panel, Serum Lab Routine Essential hypertension Expected: 08/04/2025 (Approximate), Expires: 08/04/2026 Vitamin B1 Lab Routine Essential hypertension Expected: 08/04/2025 (Approximate), Expires: 08/04/2026 documented as of this encounter Visit Diagnoses Diagnosis Essential hypertension- Primary Unspecified essential hypertension Encounter for vaccination Encounter for immunization documented in this encounter Additional Health Concerns Assessment Noted Time PHQ-9 Depression Total Score: 11 08/2 025 12:08 PM EDT documented as of this encounter Care Teams Coke Handling Supervisor Relationship Specialty Start Date End Date Theodora Cota FNP 230 [place] [address] PCP - General Family Medicine 10/18/22 documented as of this encounter
--- OUTSIDE RECORDS SUMMARY | 2025-08-04 11:16 | XMS_ITS | Encounter Summary ---
Author Organization [employer] Address [address] [facility] [address] 7t [place] [address] Care Team Providers Care Tester Electronic Scale Name Role Phone [facility] Primary Care Provider [phone] Reason for Visit * Reason Onset Date Comments Med Refill 07/22/2025 Encounter Details Date Type Department Care Team (Late st Contact Info) Description 07/22/2025 Refill [facility] 230 [place], [place] [phone] [facility] 230 [place] [address] Attention deficit Social History Tobacco Use Types [...] Description 08/21/2025 1:15 PM EDT Office Visit [facility] [address] [place] [address] Kurt Woodward MD [address] [place] [address] 10/05/2025 10:00 AM EST Office Visit [facility] [address] [place] [address] Theodora Cota [address] [address] documented as of this encounter Visit Diagnoses Diagnosis Attention deficit documented in this encounter Additional Health Concerns Assessment Noted Time PHQ-9 Depression Total Score: 11 025 12:08 PM EDT documented as of this encounter Care Teams Tester Electronic Scale Relationship Specialty Start Date End Date Theodora Cota FNP [address] [place] [address] PCP - General Family Medicine 10/18/22 documented as of this encounter
--- OUTSIDE RECORDS SUMMARY | 2025-08-04 11:16 | XMS_ITS | Encounter Summary ---
Author Organization [employer] Address [address] [facility] [address] 7t [place] [address] Care Team Providers Care Lumber Sorter Machine Name Role Phone Theodora Cota TRANSPORTATION PLANNING ENGINEER Primary Care Provider [phone] Reason for Visit * Reason Comments Med Refill Encounter Details Date Type Department Care Team (Late st Contact Info) Description 10/05/2024 Refill [facility] 230 [place], [place] [phone] Kayley Burden MD 230 [place] [address] Social History Tobacco Use Types Packs/Day Years [...] Description 08/21/2025 1:15 PM EDT Office Visit [facility] [address] [place] [address] Kurt Woodward MD [address] [place] [address] 10/05/2025 10:00 AM EST Office Visit [address] [address] Theodora Cota FNP [address] [place] [address] documented as of this encounter Visit Diagnoses Not on filedocumented in this encounter Additional Health Concerns Assessment Noted Time PHQ-9 Depression Total Score: 0 02/15/20 24 10:17 AM EDT documented as of this encounter Care Teams Lumber Sorter Machine Relationship Specialty Start Date End Date Theodora Cota FNP [address] [place] [address] PCP - General Family Medicine 10/18/22 documented as of this encounter
--- OUTSIDE RECORDS SUMMARY | 2025-08-04 11:16 | XMS_ITS | Encounter Summary ---
Author Organization [employer] Address [address] [facility] [address] 7t [place] [address] Care Team Providers Care Clinical Nursing Professor Name Role Phone Theodora Cota [employer] Primary Care Provider [phone] Reason for Visit * Reason Comments Med Refill Encounter Details Date Type Department Care Team (Late st Contact Info) Description 04/29/2025 Refill [facility] 230 [place], [place] [phone] Kayley Burden MD 230 [place] [address] Social History Tobacco Use Types Packs/Day Years [...] Description 08/21/2025 1:15 PM EDT Office Visit [facility] [address] [place] [address] Kurt Woodward MD [address] [place] [address] 10/05/2025 10:00 AM EST Office Visit [facility] [address] [place] [address] BeataTheodora garcia [address] [address] documented as of this encounter Visit Diagnoses Not on filedocumented in this encounter Additional Health Concerns Assessment Noted Time PHQ-9 Depression Total Score: 17 025 10:38 AM EDT documented as of this encounter Care Teams Clinical Nursing Professor Relationship Specialty Start Date End Date Theodora Cota FNP [address] [place] [address] PCP - General Family Medicine 12/28/22 documented as of this encounter
--- OUTSIDE RECORDS SUMMARY | 2025-08-04 11:16 | XMS_ITS | Encounter Summary ---
Author Organization [employer] Address [address] [facility] [address] 7t [place] [address] Care Team Providers Care Trombone Slide Assembler Name Role Phone Theodora Cota PETROPHYSICAL ENGINEER Primary Care Provider [phone] Encounter Details Date Type Department Care Team (Late st Contact Info) Description 06/10/2025 Results Follow-Up [facility] MEDICINE 230 [place] [address] Kurt Woodward MD 230 [place] [address] Basic Metabolic Panel, Magnesium, Vitamin B12/Folate, Serum [...] Description 08/21/2025 1:15 PM EDT Office Visit [facility] MEDICINE [address] [place] [address] Kurt Woodward MD [address] [place] [address] 10/05/2025 10:00 AM EST Office Visit [facility] MED[facility]INE [address] [place] [address] Theodora Cota FNP [address] [place] [address] documented as of this encounter Visit Diagnoses Not on filedocumented in this encounter Additional Health Concerns Assessment Noted Time PHQ-9 Depression Total Score: 11 025 12:08 PM EDT documented as of this encounter Care Teams Trombone Slide Assembler Relationship Specialty Start Date End Date Theodora Cota FNP [address] [place] [address] PCP - General Family Medicine 10/18/22 documented as of this encounter
--- OUTSIDE RECORDS SUMMARY | 2025-08-04 11:16 | XMS_ITS | Encounter Summary ---
Author Organization [employer] Address [address] [facility] [address] 7t [place] [address] Care Team Providers Care Paper Handler Name Role Phone Theodora Cota SPECIAL EFFECTS MAKEUP ARTIST Primary Care Provider [phone] Reason for Visit * Reason Comments Med Refill Encounter Details Date Type Department Care Team (Late st Contact Info) Description 07/19/2023 Refill [facility] 230 [place] [address] Kim Amaya MD 230 [place] [address] Uncomplicated opioid dependence ([facility]) Social History Tobacco Use Types [...] Description 08/21/2025 1:15 PM EDT Office Visit [facility] 230 [place] [address] Kurt Woodward MD 230 [place] [address] 10/05/2025 10:00 AM EST Office Visit [facility] 230 [place] [address] Theodora Cota FNP 230 [place] [address] documented as of this encounter Visit Diagnoses Diagnosis Uncomplicated opioid dependence (CMS/HCC) (HCC) documented in this encounter Additional Health Concerns Assessment Noted Time PHQ-9 Depression Total Score: 0 04/25/20 10:12 AM EDT documented as of this encounter Care Teams Paper Handler Relationship Specialty Start Date End Date Theodora Cota FNP [address] [place] [address] PCP - General Family Medicine 10/18/22 documented as of this encounter
--- OUTSIDE RECORDS SUMMARY | 2025-08-04 11:16 | XMS_ITS | Encounter Summary ---
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; Essential hypertension [...] Description 08/21/2025 1:15 PM EDT Office Visit [facility] [address] [place] [address] Kurt Woodward MD [address] [place] [address] 10/05/2025 10:00 AM EST Office Visit [facility] [address] [place] [address] Theodora Cota FNP [address] [place] [address] documented as of this encounter Visit Diagnoses Diagnosis 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
--- OUTSIDE RECORDS SUMMARY | 2025-08-04 11:16 | XMS_ITS | Encounter Summary ---
Author Organization [employer] Address [address] [facility] [address] 7t [place] [address] Care Team Providers Care Licensing Engineer Name Role Phone Theodora Cota HAND POTTER Primary Care Provider [phone] Reason for Visit * Reason Onset Date Comments Nurse Triage 07/30/2025 Encounter Details Date Type Department Care Team (Late st Contact Info) Description 07/30/[address] [facility] MEDICINE 230 [place], [place] [phone] Shayy Cabral, RN 230 [place] [address] Nurse Triage Social History Tobacco Use Types [...] evaluation of vaginal discharge. Advised pt of [facility] hours. Pt agreeable to appointment. Pt also requesting referral to endocrinology for management of hypothyroidism/Ivis. Pt reportsthey were previously following endocrinology at [facility], but the provider left the practice so pt has not been seen in 2 years. Pt would like referral to endocrinology in [facility] endocr[facility]. Pt reports they will be driving by the practice today and will send the information via their Si[employer] portal. Advised message to be forwarded to [...] back regarding prior message Contact pt at [phone] * Telephone Encounter - Shayy Cabral RN - 07/30/2025 1:22 PM EDT Hello Theodora I???m having some kind of discharge with light color and light odor. Can I get an appointment for aPap smear?? Also, I need a referral to an Sailing Instructor, possibly Hernandez in [place] , to follow up withmy Thyroid issues? Thank you so much Suzan Pulido Telephone call placed to pt to triage regarding above mychart message. No answer, left v/m. documented in this encounter Plan of Treatment Upcoming Encounters Date Type Department Care Team (Late st Contact Info) Description 08/21/2025 1:15 PM EDT Office Visit [facility] MEDICINE [address] [place] [address] Kurt Woodward MD [address] [facility] [place] [address] 10/05/2025 10:00 AM EST Office Visit [facility] 230 [facility] [place] [address] Theodora Cota FNP 230 [place] [address] documented as of this encounter Visit Diagnoses Not on filedocumented in this encounter Additional Health Concerns Assessment Noted Time PHQ-9 Depression Total Score: 11 06/03/ 025 12:08 PM EDT documented as of this encounter Care Teams Licensing Engineer Relationship Specialty Start Date End Date Theodora [place] [address] PCP - General Family Medicine 10/18/22 documented as of this encounter
--- OUTSIDE RECORDS SUMMARY | 2025-08-04 11:16 | XMS_ITS | Encounter Summary ---
Author Organization [employer] Address [address] [facility] [address] 7t [place] [address] Care Team Providers Care Meat Grinder Name Role Phone Theodora Cota [facility] Primary Care Provider [phone] Reason for Visit * Reason Comments Med Refill Encounter Details Date Type Department Care Team (Late st Contact Info) Description 10/27/[address] [facility] MEDICINE 230 [place], [place] [phone] Name, MD Sudhakar 230 [place] [address] Social History Tobacco Use Types Packs/Day Years [...] Description 08/21/2025 1:15 PM EDT Office Visit [facility] MEDICINE [address] [place] [address] Kurt Woodward MD [address] [place] [address] 10/05/2025 10:00 AM EST Office Visit [address] [address] Theodora Cota FNP [address] [place] [address] documented as of this encounter Visit Diagnoses Not on filedocumented in this encounter Additional Health Concerns Assessment Noted Time PHQ-9 Depression Total Score: 0 02/15/20 24 10:17 AM EDT documented as of this encounter Care Teams Meat Grinder Relationship Specialty Start Date End Date Theodora Cota FNP [address] [place] [address] PCP - General Family Medicine 10/18/22 documented as of this encounter
--- OUTSIDE RECORDS SUMMARY | 2025-08-04 11:16 | XMS_ITS | Encounter Summary ---
Author Organization [employer] Address [address] [facility] [address] 7t [place] [address] Care Team Providers Care Shift Commander Name Role Phone [facility] Primary Care Provider [phone] Reason for Visit * Reason Comments Med Change Request Encounter Details Date Type Department Care Team (Late st Contact Info) Description 03/08/2025 Refill [facility]INE 230 [place], [place] [phone] [facility] 230 [place] [address] Anxiety Social History Tobacco Use Types Packs/Day [...] EDT Office Visit [facility] MEDICINE [address] [place] [address] Kurt Woodward MD [address] [place] [address] 10/05/2025 10:00 AM EST Office Visit [address] [address] Theodora Cota FNP 230 [place] [address] documented as of this encounter Visit Diagnoses Diagnosis Anxiety Anxiety state, unspecified documented in this encounter Additional Health Concerns Assessment Noted Time PHQ-9 Depression Total Score: 17 025 10:38 AM EDT documented as of this encounter Care Teams Shift Commander Relationship Specialty Start Date End Date Theodora Cota FNP [address] [place] [address] PCP - General Family Medicine 10/18/22 documented as of this encounter
--- OUTSIDE RECORDS SUMMARY | 2025-08-04 11:16 | XMS_ITS | Encounter Summary ---
Author Organization [employer] Address [address] [facility] [address] 7t [place] [address] Care Team Providers Care Carry Out Clerk Name Role Phone [place] [facility] Primary Care Provider [phone] Encounter Details Date Type Department Care Team (Late st Contact Info) Description 06/05/2025 Results Follow-Up [facility] 230 [place] [address] [facility] 230 [place] [address] TSH Social History Tobacco Use Types Packs/Day [...] Description 08/21/2025 1:15 PM EDT Office Visit [facility] MEDICINE [address] [place] [address] Kurt Woodward MD [address] [place] [address] 10/05/2025 10:00 AM EST Office Visit [address] [address] Theodora Cota [address] [address] documented as of this encounter Visit Diagnoses Not on filedocumented in this encounter Additional Health Concerns Assessment Noted Time PHQ-9 Depression Total Score: 11 025 12:08 PM EDT documented as of this encounter Care Teams Carry Out Clerk Relationship Specialty Start Date End Date Theodora Cota FNP [address] [place] [address] PCP - General Family Medicine 10/18/22 documented as of this encounter
--- OUTSIDE RECORDS SUMMARY | 2025-08-04 11:16 | XMS_ITS | Encounter Summary ---
Author Organization [employer] Address [address] [place] [address] Care Team Providers Care Wheel Cleaner Name Role Phone [place] [facility] Primary Care Provider [phone] Reason for Visit * Reason Onset Date Comments Med Refill 06/03/2025 Encounter Details Date Type Department Care Team (Late st Contact Info) Description 06/03/2025 Refill [facility]INE [address] [place], [place] [id number] [place] [facility] [address] [place] [address] Depression, unspecified depression type Social History Tobacco [...] Author Several days 06/03/2025 12:08 PM EDT Paolma Wong MA * Feeling bad about yourself [...] Description 08/21/2025 1:15 PM EDT Office Visit [facility] MEDICINE [address] [place] [phone] Kurt Woodward MD [address] [place] [address] 10/05/2025 10:00 AM EST Office Visit [address] [address] Theodora Cota FNP [address] [place] [address] documented as of this encounter Visit Diagnoses Diagnosis Depression, unspecified depression type documented in this encounter Additional Health Concerns Assessment Noted Time PHQ-9 Depression Total Score: 11 025 12:08 PM EDT documented as of this encounter Care Teams Wheel Cleaner Relationship Specialty Start Date End Date Theodora Cota FNP [address] [place] [address] PCP - General Family Medicine 10/18/22 documented as of this encounter
--- OUTSIDE RECORDS SUMMARY | 2025-08-04 11:16 | XMS_ITS | Encounter Summary ---
Author Organization [employer] Address [address] [address] [place] [address] Care Team Providers Care Rail Express Clerk Name Role Phone [place] [facility] Primary Care Provider [phone] Encounter Details Date Type Department Care Team (Late st Contact Info) Description 04/25/2023 Orders Only [facility] MEDICINE [address] [place] [address] [facility] [address] [place] [address] Screening examination for pulmonary tuberculosis (Primary Dx) [...] energy Not at all 04/25/2023 10:12 AM EDT Joselin Phillips Poor appetite or overeating Not at all 04/25/2023 10 :12 AM Bekah Lira Feeling bad about yourself - or that you are a failure or have let yourself or your family down Not at all 04/25/2023 10:12 AM EDT Joselin Phillips Trouble concentrating on things, such as reading [...] at all 04/25/2023 10:12 AM URIAHT Hilda Phillips Patient Health Questionnaire -9 Score 0 04/25/2023 10:12 AM EDT Joselin Phillips documented as of this encounter Plan of Treatment Upcoming Encounters Date Type Department Care Team (Late st Contact Info) Description 08/21/2025 1:15 PM EDT Office Visit [facility] MEDICINE [address] [place] [address] Kurt Woodward MD [address] [place] [address] 10/05/2025 10:00 AM EST Office Visit [facility] MEDICINE [address] [place] [address] Theodora Cota FNP [address] [place] [address] Scheduled Orders Name Type Priority Associated Diagnoses [...] documented as of this encounter Care Teams Rail Express Clerk Relationship Specialty Start Date End Date Beata FARAZ Yip [address] [place] [address] PCP - General Family Medicine 10/18/22 documented as of this encounter
--- OUTSIDE RECORDS SUMMARY | 2025-08-04 11:16 | XMS_ITS | Encounter Summary ---
Author Organization [employer] Address [address] [facility] [address] [place] [address] Care Team Providers Care Nurse Special Name Role Phone Theodora Cota [facility] Primary Care Provider [phone] Encounter Details Date Type Department Care Team (Latest Contact Info) Description 08/04/2025 Travel Social History Tobacco Use Types Packs/Day [...] PM EDT Office Visit [facility] [address] [place] [address] Kurt Woodward MD [address] [place] [address] 10/05/2025 10:00 AM EST Office Visit [address] [address] Theodora Cota FNP [address] [place] [address] documented as of this encounter Visit Diagnoses Not on filedocumented in this encounter Additional Health Concerns Assessment Noted Time PHQ-9 Depression Total Score: 11 025 12:08 PM EDT documented as of this encounter Care Teams Nurse Special Relationship Specialty Start Date End Date Theodora Cota FNP [address] [place] [phone] PCP - General Family Medicine 10/18/22 documented as of this encounter
--- OUTSIDE RECORDS SUMMARY | 2025-08-04 11:16 | XMS_ITS | Encounter Summary ---
Author Organization [employer] Address [address] [address] [place] [address] Care Team Providers Care Extrusion Technician Name Role Phone Theodora Cota REGULATED PROGRAM MANAGER Primary Care Provider [phone] Encounter Details Date Type Department Care Team (Late st Contact Info) Description 09/06/2023 Abstract [facility] MEDICINE [address] [place] [address] Tonya Pulido Social History Tobacco Use Types [...] Description 08/21/2025 1:15 PM EDT Office Visit [facility] MEDICINE [address] [place] [phone] Kurt Woodward MD [address] [place] [address] 10/05/2025 10:00 AM EST Office Visit [address] [address] Theodora Coat FNP [address] [place] [address] documented as of this encounter Procedures Procedure [...] documented as of this encounter Care Teams Extrusion Technician Relationship Specialty Start Date End Date Theodora Cota FNP [address] [place] [phone] PCP - General Family Medicine 10/18/22 documented as of this encounter
--- OUTSIDE RECORDS SUMMARY | 2025-08-04 11:16 | XMS_ITS | Clinical Summary ---
Author Organization [employer] Address [address] 7[address] [place] [address] Care Team Providers Care Dog License Officer Supervisor Name Role Phone Theodora Cota [facility] Primary Care Provider [phone] Allergies Active Allergy Reactions Criticality Noted Date [...] MG tabletIndicatio ns:Severe alcohol use disorder (CMS/HCC) ([facility]),Uncomplic ated opioid dependence (CMS/HCC) (HCC) Take 1 [...] DAY 90 tablet 3 07/31/20 25 Active FLUoxetine (PROzac) 20 MG capsule Take 1 capsule (20 mg) by mouth Once per day. Take with 40 mg capsule daily 90 capsule 1 08/04/20 25 2025 Active Deep Sea Nasal [place] 0.65 % nasal spray USE 1-2 SPRAYS [...] Encounters Date Type Department Care Team Description 08/04/2025 9:15 AM EDT Office Visit [facility] [address] [place] [address] Karmen Farah DO Essential hypertension (Primary Dx); Encounter for vaccination; Encounter for immunization 08/04/2025 Travel 08/03/2025 3:30 PM EDT Office Visit [facility] [address] [place] [address] Paige Soto, PK Vaginal discharge (Primary Dx) 08/03/2025 Travel 07/31/2025 Refill [facility] [address] [place] [address] Theodora Cota FNP 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 [address] [place] [address] Theodora Cota FNP Chart Prep 07/29/2025 Telephone [facility] [place] [address] Taina Calvo, RoxyD 07/28/2025 Travel 07/24/2025 1:00 PM EDT Office Visit [facility] [address] [place] [address] Kurt Woodward MD Severe alcohol use disorder (CMS/HCC) (HCC) (Primary Dx); Uncomplicated opioid dependence (CMS/HCC) (HCC) 07/24/2025 Travel 07/22/2025 Refill [facility] [address] [place] [address] Theodora Cota FNP Attention deficit 07/22/2025 Refill [facility] [address] [facility] [place] [address] Theodora Cota FNP Depression, unspecified depression type 07/22/2025 Refill [facility] [place] [address] Theodora Cota FNP Depression, unspecified depression type 07/16/2025 Telephone [facility] [address] [address] Jason Vo, RN AUD communication 07/15/2025 Patient Outreach [facility] [address] [place] [address] Theodora Cota FNP Transition Of Care (Tcm) (HDF scheduled) 07/07/[address] [address] Theodora Cota FNP Vivotrol Injection 07/07/[address] [address] Silvia Garcia [place] 06/15/[address] [address] Arnulfo Gunn RN 06/10/2025 Results Follow-Up [address] [address] Kurt Woodward MD Basic Metabolic Panel, Magnesium, Vitamin B12/Folate, Serum Panel 06/05/2025 Results Follow-Up [facility] [address] [place] [address] Theodora Cota FNP TSH 06/03/2025 11:00 AM EDT Office Visit [address] [address] Theodora Cota FNP Grief (Primary Dx); Depression, unspecified depression type; Encounter for immunization; Anxiety; Essential hypertension 06/03/[address] [address] Theodora Cota FNP Depression, unspecified depression type 06/03/2025 Travel 06/02/[address] [address] Theodora Cota FNP Chart Prep 06/02/[address] [address] Theodora Cota FNP call back request 05/22/2025 Telephone [facility] [address] [place] [address] Kurt Woodward MD 05/22/[address] [address] Theodora Cota FNP provider out 05/2205/19/[address] [address] Kim Amaya MD Med Refill 05/18/[address] [address] Theodora Cota FNP Letter for School/Work 05/14/[address] [address] Theodora Cota FNP chart prep 05/14/[address] [address] Arnulfo Gunn, LEANNE Restless leg syndrome 05/11/2025 Patient Outreach [facility] [address] [place], [place] [phone] Theodora Cota FNP Pre-visit Planning (SDOH unable to reach LVM) 05/10/[address] [address] Theodora Cota FNP Essential hypertension 05/06/2025 4:30 PM EDT Telemedicine [address] [address] Kurt Woodward MD Restless leg syndrome (Primary Dx) 05/06/2025 Travel from Last 3 Months Immunizations Immunization Administration Dates Next Due DT (pediatric) 06/18/2006 INFLUENZA VACCINE QUADRIVALE NT RECOMBINANT PRESERVATIVE FREE RIV4 09/30/2022 Influenza injectable quadriv alent IIV4 with preservative 08/01/2018 Influenza injectable quadriv alent preservative free 08/10/2023,09/08/2020,11/05/2017,07/17 Influenza, seasonal, injecta ble, preservative free 08/04/2025,08/06/2024 Influenza, seasonal, intrade rmal, preservative free 08/11/2013 Pfizer Covid-19 Vaccine 12+ 08/04/2025, Pneumococcal Conjugate PCV 20 06/03/2025 Pneumococcal Polysaccharide [...] 18 08/04/2025 9:12 AM EDT Oxygen Saturation 99% 08/03/2025 3:24 PM EDT Inhaled Oxygen Concentration - - Weight 66 kg (145 lb 6.4 oz) 08/04/2025 9:12 AM EDT Height 160 cm (5' 3 ) 08/04/2025 9:12 AM EDT Body Mass Index 25.76 08/04/2025 9:12 AM EDT Plan of Treatment Upcoming Encounters Date Type Department Care Team (Late st Contact Info) Description 08/21/2025 1:15 PM EDT Office Visit [facility] [address] [place] [address] Kurt Woodward MD 230 [place] [address] 10/05/2025 10:00 AM EST Office Visit [facility] 230 [place] [address] Sh[place]villeTheodora FNP [address] [place] [address] Health Maintenance Due Date Last Done Comments CT Colonography 1970 FIT 1970 Sigmoidoscopy 1970 Hepatitis B Vaccines (1 of 3 - 19+ 3-dose series) 1989 Pap Smear 1991 Mammogram 02/24/2024 02/23/2022, 02/23/2022 Cervical Cancer Screening 07/22/2024 HPV/Cotest 07/22/2024 07/30/2019 FOBT 03/12/2025 03/12/2024 Depression Monitoring 12/04/2025 06/03/2025, 025 Alcohol/Substance Use Screening 04/02/2026 04/02/2025 SDOH Screening 04/02/2026 04/02/2025 Disability Screening 07/28/2026 07/28/2025 Tobacco Screening 08/04/2026 08/04/2025 Colorectal Cancer Screening 02/19/2027 FIT DNA/Cologuard 02/19/2027 03/12/2024 Lipid Panel 08/06/2029 08/06/2024, 04/21, 07/23/2020 DTaP/Tdap/Td Vaccines (3 - Td or Tdap) 09/21/2030 09/21/2020, 08/11/2013, 06/18/2006 Colonoscopy 07/19/2032 07/19/2022, 07/19/2022 RSV Patients and Patients Aged 60 years or older (1 - 1-dose 75+ series) 2045 Zoster Vaccines Completed 10/10/2023, 08/10/2023 HIV Screening Completed 08/06/2024, 05/09/2023 Hepatitis C Screening Completed 06/03/2025, 023 Pneumococcal Vaccine: 50+ Years Completed 06/03/2025, 08/11/2013 COVID-19 Vaccine Completed 08/04/2025, , 08/07/2022, Additional history exists Influenza Vaccine Completed 08/04/2025, , 08/10/2023, Additional history exists HIB Vaccines Aged Out [...] Procedure Name Priority Date/Time Associated Diagnosis Comments CHLAMYDIA/TRICHOMONA S/NEISSERIA GONORRHOEAE, PCR, URINE Routine 08/03/2025 12:00 AM EDT Vaginal discharge POCT PAULINA-14 URINE DRUG SCREEN Routine 07/24/2025 [...] Recently Relevant to Health Maintenance Results * Chlamydia/N. Gonorrhoeae, PCR, Urine (08/03/2025 12:00 AM EDT) CT PCR, Urine NOT DETECTED Not Detect. [facility] Comment:A not detected test result [...] NG PCR, Urine NOT DETECTED Not Detect. [facility] Comment:A not detected test result [...] Urine (Urine, Random) 08/03/2025 08/03/2025 us Paige Soto NP LAB URINE ORDERABLES Final Resul t [facility] [address] [place] [phone] * POCT PAULINA-14 Urine Drug Screen (07/24/2025 [...] B12/Folate, Serum Panel (06/03/2025 12:17 PM EDT) Pathologist [facility] Vitamin B12 >2,000(H ) 200 - 900 pg/mL [facility] Comment:NORMAL 200-900 PG/ML INDETERMINATE 160-199 PG/ML DEFICIENT < 160 PG/ML Folate 15.0 > or = 4.0 ng/mL [facility] Comment:Reference Values:> o r = 4.0 ng/mL< 4.0 ng/mL suggests folate deficiency Methotrexate, aminopterin and folinic acid(leucovorin) are chemotherapeutic agents whose molecularstructures are similar to folate; therefore, the Architectfolate assay cannot be used for patients using these drugs. Blood Venous blood specimen / Unknown 06/03/2025 12:17 PM EDT 06/03/2025 1:32 PM EDT Kurt Woodward MD LAB BLOOD ORDERABLES Final Resul t [facility] [address] [place] [address] [phone] * Hepatitis C Antibody with Reflex to HCV, RNA, Quantitative, Real-Time PCR (06/03/2025 12:17 PM EDT) Pathologist [facility] Hepatitis C Antibody Nonreactive Nonreactive [facility] Comment:Antibodies to HCV no t detected; does not exclude early acuteHCV infection. Blood Venous blood specimen / Unknown 06/03/2025 12:17 PM EDT 06/03/2025 1:32 PM EDT Kim Amaya MD LAB BLOOD ORDERABLES Final R esult Performing Organization Address [facility] Co de Phone Number [facility] [address] [place] [phone] * Hepatitis A Antibody, Total (06/03/2025 12:17 PM EDT) Hepatitis A Antibody IgG Nonreactive Nonreactive [facility] Blood Venous blood specimen / Unknown 06/03/2025 12:17 PM EDT 06/03/2025 1:32 PM EDT Kim Amaya MD LAB BLOOD ORDERABLES Final R esult Performing Organization Address [facility] Co de Phone Number [facility] [address] [place] [phone] * TSH (06/03/2025 12:17 PM EDT) Thyroid Stimulating Hormone 1.11 0.32 - 4.0 uIU/mL [facility] Comment:TSH 3rd Generation ( [facility]) Blood Venous blood specimen / Unknown 06/03/2025 12:17 PM EDT 06/03/2025 1:32 PM EDT [facility] [employer]EARCH ENGINE[employer] LAB BLOOD ORDERABLES Final Re sult Performing Organization Address [facility] Co de Phone Number [facility] [address] [place] [phone] * Magnesium (06/03/2025 12:17 PM EDT) Magnesium 2.2 1.6 - 2.6 mg/dL [facility] Blood Venous blood specimen / Unknown 06/03/2025 12:17 PM EDT 06/03/2025 1:32 PM EDT Kurt Woodward MD LAB BLOOD ORDERABLES Final Resul t Performing Organization Address [facility] Co de Phone Number [facility] [address] [place] [phone] * Hepatic Function Panel (06/03/2025 12:17 PM EDT) Pathologist [facility] Bilirubin, Total 0.3 0.0 - 1.0 mg/dL [facility] Bilirubin, Direct 0.1 0.0 - 0.5 mg/dL [facility] Aspartate Amino Transferase 20 5 - 31 U/L [facility] Alanine Aminotransferase 13 0 - 31 U/L [facility] Total Protein 7.3 6.5 - 8.0 g/dL [facility] Albumin Level 4.6 3.5 - 5.0 g/dL [facility] Alkaline Phosphatase 67 39 - 117 U/L [facility] Blood Venous blood specimen / Unknown 06/03/2025 12:17 PM EDT 06/03/2025 1:32 PM EDT Kim Amaya MD LAB BLOOD ORDERABLES Final R esult Performing Organization Address [facility] Co de Phone Number [facility] [address] [place] [phone] * (ABNORMAL) Basic Metabolic Panel (06/03/2025 12:17 PM EDT) Sodium 140 135 - 145 mmol/L [facility] Potassium 3.9 3.3 - 5.1 mmol/L [facility] Chloride 101 96 - 108 mmol/L [facility] Carbon Dioxide 29 22 - 29 mmol/L [facility] Anion Gap 14 12 - 20 [facility] Urea Nitrogen (BUN) 17(H) 9 - 16 mg/dL [facility] Creatinine, Serum 0.86 0.5 - 1.4 mg/dL [facility] Estimated Glomerular Filt Rate >60 [facility] Comment:Chronic Kidney Disea se: Estimated GFR < 60 mL/min/1.66p9Mrunsg Kidney Disease: Estimated GFR < 15 mL/min/1.73m2 Glucose 103 60 - 115 mg/dL [facility] Calcium 9.5 8.4 - 10.2 mg/dL [facility] Blood Venous blood specimen / Unknown 06/03/2025 12:17 PM EDT 06/03/2025 1:32 PM EDT Kurt Woodward MD LAB BLOOD ORDERABLES Final Resul t Performing Organization Address City/[facility]/ZIP Co de Phone Number [facility] [address] [place] [phone] * HIV-1/2 Antigen and Antibodies, Fourth Generation, with Reflexes (08/06/2024 11:35 AM EDT) [facility] HIV AB/AG Nonreactive Nonreactive [facility] Comment:HIV-1 p24 Ag and/or HIV-1/HIV-2 Ab not detected.A test result that is nonreactive does not exclude thepossibility of exposure to or infection with HIV-1 and/orHIV-2. Nonreactive results in this assay for individualswith prior exposure to HIV-1 and/or HIV-2 may be due toantigen and antibody levels that are below the limit ofdetection of this assay.The [employer] HIV Ag/Ab Combo assay result andsupplemental assay results should be interpreted inconjunction with the patient's clinical presentation,history and other laboratory results. If the results areinconsistent with clinical evidence, additional testing issuggested to confirm the result. Blood Venous blood specimen / Unknown 08/06/2024 11:35 AM EDT 08/06/2024 1:16 PM EDT [facility] LAB BLOOD ORDERABLES Final Re sult [facility] [address] [place] [phone] * (ABNORMAL) Lipid Panel, Standard (08/06/2024 11:35 AM EDT) Triglycerides 80 <150 mg/dL [facility] Comment:Desirable Triglyceri de: less than 150 mg/dLBorderline High Triglyceride 150-199 mg/dLHigh Triglyceride: 200-499 mg/dLVery High Triglyceride: greater than or equal to 5OO mg/dL Cholesterol 231(H) <200 mg/dL [facility] Comment:Desirable Cholestero l: less than 200 mg/dLBorderline High Cholesterol: 200-239 mg/dLHigh Cholesterol: greater than 239 mg/dL LDL Cholesterol Calculated 130(H) <100 mg/dL [facility] Comment:Desirable LDL: less than 100 mg/dLNear Optimal/Above Optimal LDL: 110- 129 mg/dLBorderline High LDL: 130-159 mg/dLHigh LDL: 160-189 mg/dLVery High LDL: greater than or equal to 190 mg/dL HDL Cholesterol 85 >40 mg/dL [facility] Comment:Desirable HDL: great er than 40 mg/dL Note: This HDL assay may give artificially low results in patients with liver disease. Blood Venous blood specimen / Unknown 08/06/2024 11:35 AM EDT 08/06/2024 1:16 PM EDT [facility] [employer]LECT[employer]EARCH ENGINE[employer] LAB BLOOD ORDERABLES Final Re sult [facility] [address] [place] [phone] * Cologuard?? colon cancer screening (03/12/2024 8:00 PM EDT) Cologuard Result Negative Negative 03/19/20 1:18 AM EDT Liquid (CLIA #:[id number]) Comment: NEGATIVE TEST RESULT. A negative Cologuard [...] (Anthony Ackerman al, N Engl J Med 2014;370(14):2234-5699) The normal value (reference range) for this assay is negative. COLOGUARD RE-SCREENING RECOMMENDATION: Periodic colorectal cancer screening is an important part of preventive healthcare for asymptomatic individuals at average risk for colorectal cancer. Following a negative Cologuard result, the [place] [employer] Society and U.S. Multi-Society Task Force screening guidelines recommend a Cologuard re-screening interval of 3 years. References: [place] [employer] Guideline for Colorectal Cancer Screening: https://www.cancer.org/cancer/horrj-suqvkz-rkfkkd/seeqckanu-ckoqsaddi-jpzuzps/ac s-rec ommendations.html.; Anjel DK, Kim CR, Sepideh FoleyK, Colorectal Cancer Screening: Recommendations for Physicians and Patients from the U.S. Multi-Society Task Force on Colorectal Cancer Screening , Am J Gastroenterology 2017; 112:6923-3032. TEST DESCRIPTION: Composite algorithmic analysis of stool [...] (Anthony Ackerman al, N Engl J Med 2014;370(14):1142-7967.) Cologuard may produce a false negative or false positive result (no colorectal cancer or precancerous polyp present at colonoscopy follow up). A negative Cologuard test result does not guarantee the absence of CRC or advanced adenoma (pre-cancer). The current Cologuard screening interval is every 3 years. ([place] [employer] and U.S. Multi-Society Task Force). Cologuard performance data in a 10,000 patient pivotal study using colonoscopy as the reference method can be accessed at the following location: www.Cellfire/results. Additional description of the Cologuard test process, warnings and precautions can be found at www.cologuard.com. Stool specimen (specimen) 03/12/2024 8:00 PM EDT 03/14/2024 11:24 AM EDT [facility] MOLECULAR DIAGNOSTICS ORD ERABLES Final Result Liquid (CLIA #:[id number]) [place] [address], * Colonoscopy (07/19/2022 11:49 AM EDT) Colonoscopy Normal Normal Conner Art MD HEALTH MAINTENANCE Final Res ult * Mammography (02/23/2022 11:48 AM EDT) Pathologist Replaced by [facility] Mammogram Bi rads 1 Neg Anatomical Region Laterality Modality Other Conner Art MD HEALTH MAINTENANCE Final Res ult * HPV mRNA E6/E7 (07/30/2019 9:44 AM EDT) Pathologist [facility] HPV mRNA E6/E7 Not Detected NOT DETECTED [facility] Comment: This test was performed using the APTIMA(R) HPV Assay ([employer] This assay detects E6/E7 viral messenger RNA (mRNA) from 14 high-risk HPV types (16,18,31,33,35,39,45,51, 52,56,58,59,66,68). For additional information please refer to: http://Apisphere.[employer]affix/faq/SSB816q8 (This link is being provided for informational/ educational purposes only.) The analytical performance characteristics of this assay have been determined by [employer] [place]. The modifications have not been cleared or approved by the FDA. This assay has been validated pursuant to the CLIA regulations and is used for clinical purposes. Test Performed by [facility], [facility] [place], [address] [place] [address] Derrick Flynn M.D., Ph.D., Director of Laboratories , CLIA [id number] Please note: Effective 07/03/2016, HPV testing will be performed using [employer] APTIMA test which targets mRNA. Detecting mRNA instead of DNA, as in older methods, offers significant improvements in specificity. 07/30/2019 9:44 AM EDT Beverley Noble CNM HISTORICAL/NON ORDERABLE LABS Final Result [facility] [address] from Last 3 Months or Most Recently Relevant to Health Maintenance Insurance Care Teams Dog License Officer Supervisor Relationship Specialty Start Date End Date Theodora Cota FNP [address] [place] [phone] PCP - General Family Medicine 10/18/22
--- OUTSIDE RECORDS SUMMARY | 2025-08-04 11:16 | XMS_ITS | Encounter Summary ---
Author Organization [employer] Address [address] [place] [address] Care Team Providers Care Ops Analyst Name Role Phone [facility] Primary Care Provider [phone] Reason for Visit * Reason Comments Med Refill Encounter Details Date Type Department Care Team (Late st Contact Info) Description 08/02/2023 Refill [facility] [address] [place], [place] [phone] [facility] [address] [place] [address] Dyspepsia Social History Tobacco Use Types Packs/Day [...] [facility] [address] [place] [phone] Kurt Woodward MD [address] [place] [address] 10/05/2025 10:00 AM EST Office Visit [facility] [address] [place] [address] Theodora Cota FNP [address] [place] [address] documented as of this encounter Visit Diagnoses Diagnosis Dyspepsia Dyspepsia and other specified disorders of function of stomach documented in this encounter Additional Health Concerns Assessment Noted Time PHQ-9 Depression Total Score: 0 04/25/20 23 10:12 AM EDT documented as of this encounter Care Teams Ops Analyst Relationship Specialty Start Date End Date Theodora Cota FNP [address] [place] [address] PCP - General Family Medicine 10/18/22 documented as of this encounter
--- OUTSIDE RECORDS SUMMARY | 2025-08-04 11:16 | XMS_ITS | Encounter Summary ---
Author Organization [employer] Address [address] [place] [address] Care Team Providers Care Energy Trader Name Role Phone [facility] Primary Care Provider [phone] Reason for Visit * Reason Comments Med Refill Encounter Details Date Type Department Care Team (Late st Contact Info) Description 01/24/[address] [facility] [address] [place], [place] [phone] [facility] [address] [place] [address] Social History Tobacco Use Types Packs/Day Years [...] Office Visit [facility] [address] [place] [phone] Kurt Woodward MD [address] [place] [phone] 10/05/2025 10:00 AM EST Office Visit [address] [address] Theodora Cota FNP [address] [place] [phone] documented as of this encounter Visit Diagnoses Not on filedocumented in this encounter Additional Health Concerns Assessment Noted Time PHQ-9 Depression Total Score: 0 08/10/20 23 10:11 AM EDT documented as of this encounter Care Teams Energy Trader Relationship Specialty Start Date End Date Theodora Cota FNP [address] [place] [phone] PCP - General Family Medicine 10/18/22 documented as of this encounter
--- OUTSIDE RECORDS SUMMARY | 2025-08-04 11:16 | XMS_ITS | Encounter Summary ---
Author Organization [employer] Address [address] [place] [address] Care Team Providers Care Service Director Name Role Phone [facility] Primary Care Provider [phone] Reason for Visit * Reason Onset Date Comments Med Refill 10/24/2024 Encounter Details Date Type Department Care Team (Late st Contact Info) Description 10/24/2024 Refill [facility] [address] [place], [place] [phone] [facility] [address] [place] [address] Social History Tobacco Use Types Packs/Day Years [...] 1:15 PM EDT Office Visit [facility] [address] [place] [phone] Kurt Woodward MD [address] [place] [address] 10/05/2025 10:00 AM EST Office Visit [facility] [address] [place] [address] Theodora Cota FNP [address] [place] [address] documented as of this encounter Visit Diagnoses Not on filedocumented in this encounter Additional Health Concerns Assessment Noted Time PHQ-9 Depression Total Score: 0 02/15/20 24 10:17 AM EDT documented as of this encounter Care Teams Service Director Relationship Specialty Start Date End Date Theodora Cota FNP [address] [place] [phone] PCP - General Family Medicine 10/18/22 documented as of this encounter
--- OUTSIDE RECORDS SUMMARY | 2025-08-04 11:16 | XMS_ITS | Encounter Summary ---
Author Organization [employer] Address [address] [place] [address] Care Team Providers Care Cda Teacher Name Role Phone [facility] Primary Care Provider [phone] Reason for Visit * Reason Onset Date Comments Chart Prep 07/30/2025 Encounter Details Date Type Department Care Team (Late st Contact Info) Description 07/30/2025 Telephone [facility] MEDICINE [address] [place], [place] [phone] [place] [facility] [address] [place] [address] Chart Prep Social History Tobacco Use Types [...] Description 08/21/2025 1:15 PM EDT Office Visit [facility] MEDICINE [address] [place] [phone] Kurt Woodward MD [address] [place] [address] 10/05/2025 10:00 AM EST Office Visit [facility] MEDICINE [address] [place] [address] BeataTheodora garcia FNP [address] [place] [address] documented as of this encounter Visit Diagnoses Not on filedocumented in this encounter Additional Health Concerns Assessment Noted Time PHQ-9 Depression Total Score: 11 025 12:08 PM EDT documented as of this encounter Care Teams Cda Teacher Relationship Specialty Start Date End Date Theodora Cota FNP [address] [place] [address] PCP - General Family Medicine 10/18/22 documented as of this encounter
--- OUTSIDE RECORDS SUMMARY | 2025-08-04 11:16 | XMS_ITS | Encounter Summary ---
Author Organization [employer] Address [address] [facility] 7[address] [place] [address] Care Team Providers Care Per Diem Registered Nurse Name Role Phone Theodora Cota [facility] Primary Care Provider [phone] Encounter Details Date Type Department Care Team [...] Description 08/21/2025 1:15 PM EDT Office Visit [facility] MEDICINE [address] [place] [phone] Kurt Woodward MD [address] [place] [address] 10/05/2025 10:00 AM EST Office Visit [address] [address] Theodora Cota FNP [address] [place] [address] documented as of this encounter Visit Diagnoses Not on filedocumented in this encounter Additional Health Concerns Assessment Noted Time PHQ-9 Depression Total Score: 11 025 12:08 PM EDT documented as of this encounter Care Teams Per Diem Registered Nurse Relationship Specialty Start Date End Date Theodora Cota FNP [address] [place] [address] PCP - General Family Medicine 10/18/22 documented as of this encounter
--- OUTSIDE RECORDS SUMMARY | 2025-08-04 11:16 | XMS_ITS | Encounter Summary ---
Author Organization [employer] Address [address] 7[address] [place] [address] Care Team Providers Care Mangle Operator Garments Name Role Phone Theodora Cota [facility] Primary Care Provider [phone] Reason for Visit * Reason Comments Med Refill Encounter Details Date Type Department Care Team (Late st Contact Info) Description 01/03/2024 Refill [facility] MEDICINE 230 [place], [place] [phone] Kim Amaya MD 230 [place] [address] Opioid dependence in remission (CMS/HCC) Social History [...] Description 08/21/2025 1:15 PM EDT Office Visit [facility] MEDICINE [address] [place] [address] Kurt Woodward MD [address] [place] [address] 10/05/2025 10:00 AM EST Office Visit [address] [address] Theodora Cota [address] [address] documented as of this encounter Visit Diagnoses Diagnosis Opioid dependence in remission (CMS/HCC) (HCC) Opioid type dependence, in remission documented in this encounter Additional Health Concerns Assessment Noted Time PHQ-9 Depression Total Score: 0 08/10/20 23 10:11 AM EDT documented as of this encounter Care Teams Mangle Operator Garments Relationship Specialty Start Date End Date Theodora Cota FNP [address] [place] [address] PCP - General Family Medicine 10/18/22 documented as of this encounter
--- OUTSIDE RECORDS SUMMARY | 2025-08-04 11:16 | XMS_ITS | Encounter Summary ---
Author Organization [employer] Address [address] [facility] [address] [place] [address] Care Team Providers Care Artificial Breast Fabricator Name Role Phone Theodora Cota [facility] Primary Care Provider [phone] Reason for Visit * Reason Comments Med Refill Encounter Details Date Type Department Care Team (Late st Contact Info) Description 08/20/2023 Refill [facility] MEDICINE 230 [place], [place] [phone] Karmen Farah DO 230 [place], [place] [phone] Social History Tobacco Use Types Packs/Day Years [...] Description 08/21/2025 1:15 PM EDT Office Visit [facility] MEDICINE [address] [place] [address] Kurt Woodward MD [address] [place] [address] 10/05/2025 10:00 AM EST Office Visit [address] [address] Theodora Cota FNP [address] [place] [address] documented as of this encounter Visit Diagnoses Not on filedocumented in this encounter Additional Health Concerns Assessment Noted Time PHQ-9 Depression Total Score: 0 08/10/20 23 10:11 AM EDT documented as of this encounter Care Teams Artificial Breast Fabricator Relationship Specialty Start Date End Date Theodora Cota FNP [address] [place] [address] PCP - General Family Medicine 10/18/22 documented as of this encounter
--- OUTSIDE RECORDS SUMMARY | 2025-08-04 11:16 | XMS_ITS | Encounter Summary ---
Author Organization [email or web address] Address [address] [address] [place] [address] Care Team Providers Care Tuna Purse Seiner Name Role Phone [facility] Primary Care Provider [phone] Reason for Visit * Reason Onset Date Comments Med Refill 07/22/2025 Encounter Details Date Type Department Care Team (Late st Contact Info) Description 07/22/2025 Refill [facility] MEDICINE [address] [place], [place] [phone] [facility] 230 [place] [address] Depression, unspecified depression type Social History Tobacco [...] Description 08/21/2025 1:15 PM EDT Office Visit [facility] MEDICINE [address] [place] [phone] Kurt Woodward MD [address] [place] [address] 10/05/2025 10:00 AM EST Office Visit [facility] MEDICINE [address] [place] [address] Theodora Cota FNP [address] [place] [address] documented as of this encounter Visit Diagnoses Diagnosis Depression, unspecified depression type documented in this encounter Additional Health Concerns Assessment Noted Time PHQ-9 Depression Total Score: 11 025 12:08 PM EDT documented as of this encounter Care Teams Tuna Purse Seiner Relationship Specialty Start Date End Date Theodora Cota FNP [address] [place] [phone] PCP - General Family Medicine 10/18/22 documented as of this encounter
--- OUTSIDE RECORDS SUMMARY | 2025-08-04 11:16 | XMS_ITS | Encounter Summary ---
Author Organization [employer] Address [address] 7[address] [place] [address] Care Team Providers Care Primary Care Md Name Role Phone [facility] Primary Care Provider [phone] Reason for Visit * Reason Onset Date Comments Nurse Triage 10/02/2024 Encounter Details Date Type Department Care Team (Late st Contact Info) Description 10/02/2024 Telephone [facility] MEDICINE 230 [place], [place] [phone] [facility] 230 [place] [address] Nurse Triage Social History Tobacco Use Types [...] caller accepted this outcome. Contact pt at [phone] documented in this encounter Plan of Treatment Upcoming Encounters Date Type Department Care Team (Late st Contact Info) Description 08/21/2025 1:15 PM EDT Office Visit [address] [address] Kurt Woodward MD [address] [place] [address] 10/05/2025 10:00 AM EST Office Visit [address] [address] Theodora Cota FNP [address] [place] [address] documented as of this encounter Visit Diagnoses Not on filedocumented in this encounter Additional Health Concerns Assessment Noted Time PHQ-9 Depression Total Score: 0 02/15/20 24 10:17 AM EDT documented as of this encounter Care Teams Primary Care Md Relationship Specialty Start Date End Date Theodora Cota FNP [address] [place] [address] PCP - General Family Medicine 10/18/22 documented as of this encounter
--- OUTSIDE RECORDS SUMMARY | 2025-08-04 11:17 | XMS_ITS | Encounter Summary ---
Author Organization [employer] Address [address] [place] [address] Care Team Providers Care Computer Analyst Supervisor Name Role Phone Theodora Cota [employer] Primary Care Provider [phone] Reason for Visit * Reason Comments Med Change Request Encounter Details Date Type Department Care Team (Late st Contact Info) Description 07/23/2024 Refill [facility] MEDICINE [address] [place] [address] Kim Amaya MD 230 [place] [address] Social History Tobacco Use Types Packs/Day Years [...] Office Visit [facility] MEDICINE [address] [place] [address] Kurt Woodward MD [address] [place] [address] 10/05/2025 10:00 AM EST Office Visit [address] [address] Theodora Cota FNP [address] [place] [address] documented as of this encounter Visit Diagnoses Not on filedocumented in this encounter Additional Health Concerns Assessment Noted Time PHQ-9 Depression Total Score: 0 02/15/20 24 10:17 AM EDT documented as of this encounter Care Teams Computer Analyst Supervisor Relationship Specialty Start Date End Date Theodora Cota FNP [address] [place] [address] PCP - General Family Medicine 10/18/22 documented as of this encounter
[2025-08-04 12:07] LABS: Hematocrit 40.1 % (37.0-47.0); Hemoglobin 13.0 g/dl (12.0-16.0); Mean Corpuscular HGB Conc 32.4 g/dl (31.0-35.0); Mean Corpuscular Hemoglobin 31.0 pg (27.0-33.0); Mean Corpuscular Volume 95.7 fL (80.0-98.0); NRBC Abs Auto 0.000 X10*3/uL (0.0-0.012); NRBC Pct Auto 0.0 /100WBC (0.0-0.2); Platelet Count 360 X10*3/uL (160-400); Red Blood Count 4.19 X10*6/uL (4.20-5.50); White Blood Count 5.6 X10*3/uL (4.8-10.8)
[2025-08-04 12:21] LABS: Microalbum/Creatinine Ratio Ur 5.4 ug/mg cr (<30)
[2025-08-04 12:41] LABS: Alanine Aminotransferase 31 U/L (0-31); Albumin Level 4.3 g/dL (3.5-5.0); Alkaline Phosphatase 64 U/L (39-117); Anion Gap 11 (12-20); Aspartate Amino Transferase 49 U/L (5-31); Blood Urea Nitrogen 16 mg/dL (9-16); Calcium 9.8 mg/dL (8.4-10.2); Carbon Dioxide 32 mmol/L (22-29); Chloride 103 mmol/L (96-108); Cholesterol 271 mg/dL (<200); Estimated Glomerular Filt Rate > 60; HDL Cholesterol 97 mg/dL (>40); Potassium 4.5 mmol/L (3.3-5.1); Sodium 141 mmol/L (135-145); Total Protein 7.0 g/dL (6.5-8.0); Triglycerides 71 mg/dL (<150)
[2025-08-04 12:51] LABS: Folate 10.6 ng/mL (> or = 4.0); Vitamin B12 507 pg/mL (200-900)
[2025-08-04 12:59] LABS: Free T4 (Free Thyroxine) 0.99 ng/dL (0.71-1.85); Thyroid Stimulating Hormone 1.28 uIU/mL (0.32-4.0)
== END 2025-08-04 09:54 | disposition home or self-care (01) ==
LOC: HO.HHCL 09:53
PROVIDERS: PCP Registered Nurse; Visit Provider Family Medicine
DX: I10 Essential (primary) hypertension (principal)
CPT/HCPCS: 36415; 80048; 80061; 80076; 82043; 82306; 82570; 82607; 82746; 83036; 84425; 84439; 84443; 85027